=== PATIENT | female | born 2000 | race Caucasian/White ===

== ENCOUNTER → 2018-08-14 15:45 | Outpatient (CLI) | payer OTHER, SELFPAY ==
[2018-08-14 16:20] LABS: Absolute Lymphocyte Count 1.54 X10^3/ul (0.83-4.51); Absolute Neutrophil Count 5.9 X10^3/uL (2.0-7.7); Basophil# 0.07 X10^3/uL; Basophil% 0.8 % (0-1); Eosinophil# 0.11 X10^3/uL; Eosinophils% 1.3 % (0-5); Hematocrit 42.3 % (37-47); Hemoglobin 13.9 g/dl (12.0-15.0); Lymphocyte # 1.54 X10^3/ul (4.0); Lymphocyte % 18.4 % (19-41); Mean Corp Hgb Conc 32.9 g/gl (32-36); Mean Corpuscular Hgb 29.3 pg (27.0-32.0); Mean Corpuscular Volume 89.2 fL (81-99); Mean Platelet Vol. 9.5 fl (6.2-12.0); Monocyte# 0.69 X10^3/uL; Monocyte% 8.2 % (0-10); Neutrophil # 5.93 X10^3/uL (2.7-7.7); Neutrophil % 70.9 % (47-70); POSITIVE COUNT NO; POSITIVE DIFFERENTIAL NO; POSITIVE MORPHOLOGY NO; Platelet Count 351 K/mm3 (150-450); RBC Distribution Width CV 13.5 % (11.6-14.6); RBC Distribution Width SD 44.3 fl (35.1-43.9); Red Blood Count 4.74 M/mm3 (4.2-5.4); White Blood Count 8.4 K/mm3 (4.4-11.0)
[2018-08-14 16:56] LABS: ALB/GLOB Ratio 1.2 RATIO (0.9-2.4); AST(SGOT) 11 U/L (15-37); Alanine Aminotransfer ALT/SGPT 19 U/L (13-56); Alkaline Phosphatase 90 U/L (45-117); Anion Gap 7 (5-15); BUN 7 mg/dL (7-18); Calcium,Total 8.7 mg/dL (8.5-10.1); Chloride 107 mmol/L (98-107); Cholesterol 115 mg/dL (200); Creatinine, Serum 0.78 mg/dL (0.55-1.02); EST Glomerular Filtration Rate 100 mL/min (>60); Est Glom Filt Rate - Afr Amer 121 mL/min (>60); Globulin 3.4 g/dL (2.2-4.2); Glucose 86 mg/dL (74-106); High Density Lipoprotein 52 mg/dL; Potassium 3.6 mmol/L (3.5-5.1); Protein, Total 7.4 g/dL (6.4-8.2); Sodium Level 141 mmol/L (136-145); Triglycerides 100 mg/dL; Very Low Density Lipoprotein 20 mg/dL (5-40)
== END ==
PROVIDERS: Family Provider Family Medicine; PCP Family Medicine; Referring Provider Family Medicine; Visit Provider Family Medicine
DX: Z00.00 Encounter for general adult medical examination without abnormal findings (principal); K51.90 Ulcerative colitis, unspecified, without complications; Z79.899 Other long term (current) drug therapy
CPT/HCPCS: 36415; 80053; 80061; 85025

== ENCOUNTER 2018-12-14 14:08 | Emergency (ER) | payer OTHER, SELFPAY ==
[2018-12-14 14:08] VITALS: BP 124/69; PULSE 95; RESP 16; TEMP 36.5; O2SAT 100; BMI 24.5
--- NOTE | 2018-12-14 14:45 | ED.VISSUMM ---
- ER Visit Summary Date of Service: 12/14/18 Chief Complaint: Abdominal pain History of Present Illness: The patient is a 18 F presenting with abdominal pain. Patient states this has been intermittent for the past week. She states currently the pain is mild. She has had bloody diarrhea. She has a history of ulcerative colitis. She denies lightheadedness or syncope. She states she missed a few doses of her medication a few weeks ago and is not sure if this caused her ulcerative colitis to flare. She denies possibility of . Denies other complaints. Physical Examination: Vitals are stable. Patient is afebrile. Alert no acute distress. HEENT exam is unremarkable. Neck is supple. Lungs are clear and equal bilaterally. Heart is regular rate and rhythm. Abdomen is soft nontender nondistended. No guarding or rebound Extremities are unremarkable. Skin is warm and dry. No focal neurologic deficit. Remainder of exam is unremarkable. Emergency Department Course and Treatment: Patient given morphine, Zofran IV. CBC, chemistries unremarkable. hCG negative. Orthostatics negative. On reevaluation, patient is resting comfortably. Her abdominal pain has resolved. Her abdomen exam continues to be soft and nontender with no rebound or guarding. She states that she was recently discharged from the practice of her GI physician in [place] due to an unpaid bill. She states she has been treated in the past with steroids which have helped her. She is given prednisone and a prescription for prednisone. She is advised to follow-up with Dr. Armstrong. Advised to follow up with her primary care physician. Advised return to ED if worsening complaints. Disposition: Discharge home Impression: Abdominal pain, ulcerative colitis This note was generated with [employer] dictation software. It may contain incorrect words, spelling, and punctuation that were not noted in review of the chart prior to signing ED Disposition - Plan for ED Patient: Instructions: ED Colitis Ulcerative Prescriptions: Prednisone [Deltasone] 40 mg PO DAILY #10 tablet Referrals: Kael Chase MD [Primary Care Provider] - Gold Armstrong MD [NON-STAFF] -
[2018-12-14 14:57] VITALS: BP 120/68; BP 125/79; BP 127/66; PULSE 68; PULSE 74; PULSE 83; PULSE 98; RESP 18; TEMP 36.5; O2SAT 99
[2018-12-14] MEDS: 0.9% Normal Saline 1,000 ML 1000 ML IV (15:03)
[2018-12-14] MEDS: Ondansetron 4 MG/2 ML Vial IV (15:03)
[2018-12-14] MEDS: Morphine 4 MG/ML Syringe IV (15:04)
[2018-12-14 15:18] LABS: Absolute Lymphocyte Count 1.61 X10^3/ul (0.83-4.51); Absolute Neutrophil Count 5.4 X10^3/uL (2.0-7.7); Basophil# 0.06 X10^3/uL; Basophil% 0.7 % (0-1); Eosinophils% 9.4 % (0-5); Hematocrit 39.4 % (37-47); Hemoglobin 13.2 g/dl (12.0-15.0); Lymphocyte # 1.61 X10^3/ul (4.0); Mean Corp Hgb Conc 33.5 g/gl (32-36); Mean Corpuscular Hgb 29.4 pg (27.0-32.0); Mean Corpuscular Volume 87.8 fL (81-99); Mean Platelet Vol. 9.1 fl (6.2-12.0); Monocyte# 0.57 X10^3/uL; Monocyte% 6.7 % (0-10); Neutrophil # 5.39 X10^3/uL (2.7-7.7); Neutrophil % 63.7 % (47-70); Platelet Count 411 K/mm3 (150-450); RBC Distribution Width CV 13.4 % (11.6-14.6); RBC Distribution Width SD 42.7 fl (35.1-43.9); Red Blood Count 4.49 M/mm3 (4.2-5.4); White Blood Count 8.5 K/mm3 (4.4-11.0)
[2018-12-14 15:20] LABS: POSITIVE COUNT NO; POSITIVE DIFFERENTIAL NO; POSITIVE MORPHOLOGY NO
[2018-12-14 15:30] LABS: Anion Gap 8 (5-15); BUN 9 mg/dL (7-18); BUN/Creat Ratio 11.2 RATIO (10-20); Calcium,Total 8.6 mg/dL (8.5-10.1); Chloride 106 mmol/L (98-107); EST Glomerular Filtration Rate 96 mL/min (>60); Est Glom Filt Rate - Afr Amer 116 mL/min (>60); Estimated Creatinine Clearance 84.65 ml/min; Glucose 92 mg/dL (74-106); Potassium 3.9 mmol/L (3.5-5.1); Sodium Level 142 mmol/L (136-145)
[2018-12-14 15:38] LABS: Internal QC Validated? YES +Cl - CLEAR BKGD; Pregnancy, Serum, hCG Quali. NEGATIVE Negative
--- NOTE | 2018-12-14 16:15 | ED.DEP ---
ED Disposition - Plan for ED Patient: Instructions: ED Colitis Ulcerative Prescriptions: Prednisone [Deltasone] 40 mg PO DAILY #10 tablet Referrals: Kael Chase MD [Primary Care Provider] - Gold Armstrong MD [NON-STAFF] -
[2018-12-14 16:39] VITALS: BP 114/69; PULSE 70; RESP 17; RESP 18; O2SAT 98
[2018-12-14] MEDS: predniSONE 20 MG Tablet 60 MG PO (16:41)
== END 2018-12-14 16:42 | disposition home or self-care (01) ==
PROVIDERS: Emergency Provider Emergency Medicine; Family Provider Family Medicine; PCP Family Medicine
DX: K51.90 Ulcerative colitis, unspecified, without complications (principal); Z79.899 Other long term (current) drug therapy
CPT/HCPCS: 80048; 84703; 85025; 96361; 96374; 96375; 99284; J7030; A4216; J2405

== ENCOUNTER 2019-03-05 19:35 | Emergency (ER) | payer OTHER, SELFPAY ==
[2019-03-05 19:37] VITALS: BP 135/73; PULSE 145; RESP 18; TEMP 37.9; O2SAT 100; BMI 22.6
[2019-03-05 19:50] VITALS: TEMP 37.9
--- NOTE | 2019-03-05 21:14 | ED.DCSUM_ITS ---
- ER Visit Summary Date of Service: 03/05/19 Chief Complaint: Abdominal pain History of Present Illness: The patient is a 19 F presenting with abdominal pain. She states this has been ongoing for the past 2 months. She believes she is having an ulcerative colitis flare. She recently got a new GI physician in [place] and has an upcoming appointment. She complains of diffuse abdominal cramping, nausea, vomiting. She has a blood in her stool and diarrhea which is chronic. She denies other complaints. Physical Examination: Vitals are stable. Temperature 100.3. Alert no acute distress. HEENT exam is unremarkable. Neck is supple. Lungs are clear and equal bilaterally. Heart is regular and tachycardic Abdomen is soft mild diffuse tenderness no rebound or guarding Extremities are unremarkable. Skin is warm and dry. Remainder of exam is unremarkable. Emergency Department Course and Treatment: Patient given IV fluids, morphine, Zofran. CBC showed white count 14.7, hemoglobin 11.6, platelets 648. Chemistries unremarkable. hCG negative. On reevaluation patient is now having more pain in the right lower quadrant. CT abdomen pelvis is ordered and is pending at this time. This will be checked out to the nighttime physician. Repeat heart rate 113, temperature 99.2. Disposition: Pending CT results Impression: Abdominal pain, history of ulcerative colitis This note was generated with [employer] dictation software. It may contain incorrect words, spelling, and punctuation that were not noted in review of the chart prior to signing ED Disposition - Plan for ED Patient: Instructions: ABDOMINAL PAIN, Unknown Cause, (Female) Prescriptions: Dicyclomine HCl [Bentyl] 20 mg PO TIDAC #20 cap Prescription Printed Ondansetron [Zofran Odt] 4 mg PO Q8H PRN PRN #10 tab PRN Reason: Nausea Prescription Printed Referrals: Kael Chase MD [Primary Care Provider] -
[2019-03-05] MEDS: 0.9% Normal Saline 1,000 ML 1000 ML IV ×2 (21:16→22:13)
[2019-03-05] MEDS: Ondansetron 4 MG/2 ML Vial IV (21:17)
[2019-03-05] MEDS: Morphine 4 MG/ML Syringe IV (21:18)
[2019-03-05 21:19] VITALS: BP 123/79; PULSE 115; RESP 16; TEMP 37.3; O2SAT 99
[2019-03-05 21:35] LABS: Hematocrit 36.3 % (37-47); Hemoglobin 11.6 g/dL (12.0-15.0); Mean Corpuscular Hgb 28.6 pg (27.0-32.0); Mean Corpuscular Volume 89.6 fL (81-99); Mean Platelet Vol. 9.4 fl (6.2-12.0); POSITIVE MORPHOLOGY YES; Platelet Count 648 K/mm3 (150-450); RBC Distribution Width CV 14.5 % (11.6-14.6); RBC Distribution Width SD 47.4 fl (35.1-43.9); Red Blood Count 4.05 M/mm3 (4.2-5.4); White Blood Count 14.7 K/mm3 (4.4-11.0)
[2019-03-05 21:50] LABS: Anion Gap 8 (5-15); BUN 5 mg/dL (7-18); BUN/Creat Ratio 6.4 RATIO (10-20); Calcium,Total 8.7 mg/dL (8.5-10.1); Chloride 101 mmol/L (98-107); Creatinine, Serum 0.78 mg/dL (0.55-1.02); EST Glomerular Filtration Rate 98 mL/min (>60); Est Glom Filt Rate - Afr Amer 119 mL/min (>60); Estimated Creatinine Clearance 90.24 ml/min; Glucose 81 mg/dL (74-106); Potassium 3.7 mmol/L (3.5-5.1); Sodium Level 134 mmol/L (136-145)
[2019-03-05 22:00] VITALS: BP 112/78; PULSE 110; RESP 16; TEMP 37.7; O2SAT 100
[2019-03-05 22:05] LABS: Eosinophil 1 % (0-5); Lymphocyte 8 % (19-41); Monocyte 2 % (0-10); Neutrophil-Band 18 % (0-5); Neutrophil-Segmented 71 % (47-70); Total Cells Counted 100 (MANUAL DIFF)
[2019-03-05 22:06] LABS: Scan Smear per Review Criteria MANUAL DIFF
[2019-03-05 22:08] LABS: Differential Indicated MANUAL DIFF
[2019-03-05 22:09] LABS: Absolute Lymphocyte Count 1.18 X10^3/uL (0.83-4.51); Absolute Neutrophil Count 13.1 X10^3/uL (2.0-7.7)
[2019-03-05 22:10] LABS: Anisocytosis RARE; Platelet Estimate MKD INC (ADEQ)
[2019-03-05 22:26] LABS: Internal QC Validated? YES +Cl - CLEAR BKGD; Pregnancy, Serum, hCG Quali. NEGATIVE Negative
--- NOTE | 2019-03-05 22:48 | ED.RN ---
DR. PENA MADE AWARE PT BG WAS 56, DR. PENA IS ORDERING D50, WILL MEDICATE PT AND RE CHECK SUGAR IN 15MIN.
[2019-03-05 23:00] VITALS: BP 120/76; PULSE 113; RESP 16; TEMP 37.3; O2SAT 100
[2019-03-06] VITALS: TEMP 37.3
--- NOTE | 2019-03-06 00:40 | CT_ITS ---
HISTORY: RLQ PAIN,NAUSEA AND DIARRHEA WITH BLOOD IN STOOLS X 2 MONTHS,ELEVATED WBC,PREG TEST WAS NEGATIVE HX:COLITIS ADDITIONAL HISTORY: None provided. TECHNIQUE: CT images were obtained of the abdomen and pelvis with 100 ml of Isovue 300 IV contrast. Enteric contrast was given. A radiation dose optimization technique was used for this scan. Number of images including paperwork: 361 COMPARISON: None FINDINGS: LOWER THORAX: No consolidation or pleural effusion. LIVER: No concerning focal lesion. GALLBLADDER: No radiopaque calculi. BILE DUCTS: No significant biliary dilatation. SPLEEN: Unremarkable. PANCREAS: Unremarkable. ADRENAL GLANDS: Unremarkable. KIDNEYS/URETERS: Unremarkable. BOWEL: No bowel obstruction. Moderate diffuse wall thickening of the colon with mild surrounding stranding and small pericolonic nodes. APPENDIX: Normal. FREE FLUID: Small amount of pelvic free fluid. FREE AIR: None. LYMPH NODES: No pathologic appearing adenopathy. PERITONEUM, RETROPERITONEUM AND MESENTERY: Otherwise unremarkable. VASCULATURE: Unremarkable as imaged. PELVIS: Unremarkable bladder. ABDOMINAL WALL: Unremarkable. OSSEOUS AND SOFT TISSUE STRUCTURES: No acute skeletal findings. CT/Abdomen/Pelvis WITH Contrast IMPRESSION: Pancolitis, most likely inflammatory in nature such as ulcerative colitis. Infectious etiology is in the differential diagnosis. Individualized dose optimization techniques were used for this CT. at 0305 Reported and signed by: Mireya Stout MD Electronically Signed: Mireya Stout MD at 3:05 EDT Tel , Service support ,
--- NOTE | 2019-03-06 00:40 | ED.DEP ---
ED Disposition - Plan for ED Patient: Instructions: ABDOMINAL PAIN, Unknown Cause, (Female) Prescriptions: Dicyclomine HCl [Bentyl] 20 mg PO TIDAC #20 capsule Ondansetron [Zofran Odt] 4 mg PO Q8H PRN PRN #10 tablet PRN Reason: Nausea Referrals: Kael Chase MD [Primary Care Provider] -
[2019-03-06] MEDS: Morphine 4 MG/ML Syringe IV (00:56)
[2019-03-06 01:00] VITALS: BP 110/72; PULSE 113; RESP 16; TEMP 36.6; O2SAT 98
[2019-03-06 02:00] VITALS: TEMP 36.6
[2019-03-06 03:11] VITALS: BP 150/73; PULSE 125; RESP 16; TEMP 36.8; O2SAT 100
--- NOTE | 2019-03-06 03:14 | DCINST.ED_ITS ---
ED Disposition - Plan for ED Patient: Disposition: Home or Assisted Living Instructions: Ulcerative Colitis Prescriptions: Dicyclomine HCl [Bentyl] 20 mg PO TIDAC #20 cap Prescription Printed Ciprofloxacin [Cipro] 500 mg PO BID #14 tab Prescription Printed metroNIDAZOLE [Flagyl] 500 mg PO Q8H #21 tab Prescription Printed Meloxicam 15 mg PO DAILY #14 tab Prescription Printed Prednisone 10 mg PO DAILY #63 tab Prescription Printed Ondansetron [Zofran Odt] 4 mg PO Q8H PRN PRN #10 tab PRN Reason: Nausea Prescription Printed Referrals: Kael Chase MD [Primary Care Provider] - Additional Instructions: also follow with your hand braille transcriber
[2019-03-06] MEDS: Ciprofloxacin 500 MG Tablet PO (03:21)
[2019-03-06] MEDS: predniSONE 20 MG Tablet 60 MG PO (03:21)
[2019-03-06] MEDS: metroNIDAZOLE 500 MG Tablet PO (03:21)
[2019-03-06 03:31] VITALS: BP 150/73; PULSE 125; RESP 18; O2SAT 100
[2019-03-06 13:56] LABS: Pathologist Review Reviewed
== END 2019-03-06 03:32 | disposition home or self-care (01) ==
PROVIDERS: Emergency Medicine; Emergency Provider Emergency Medicine; Family Provider Family Medicine; PCP Family Medicine
DX: K51.90 Ulcerative colitis, unspecified, without complications (principal); R00.0 Tachycardia, unspecified; Z79.899 Other long term (current) drug therapy
CPT/HCPCS: 74177; 80048; 84703; 85025; 96361; 96374; 96375; 96376; 99283; J7030; Q9967; A4216; J2405

== ENCOUNTER 2019-03-22 15:10 | Emergency (ER) | payer OTHER, SELFPAY ==
[2019-03-22 15:10] VITALS: BP 129/88; PULSE 148; RESP 18; TEMP 36.6; O2SAT 99; BMI 24.5
--- NOTE | 2019-03-22 15:25 | ED.VISSUMM ---
- ER Visit Summary Date of Service: 03/22/19 Chief Complaint: Abdominal pain with nausea, vomiting diarrhea History of Present Illness: The patient is a 19 F history of ulcerative colitis. She says is 10 years old. She is an upcoming appointment with a GI physician in [facility] tomorrow. She states she has had a flare for the last 2 months. She was recently seen in the emergency department 2 to 3 weeks ago had a CAT scan at that time which showed pancolitis. She was placed on Mobic for pain and prednisone. Patient states she was doing well currently she is out of the medications and is having recurrent symptoms. She denies any gross melena or hematemesis. No fever. She denies any prior abdominal surgeries. Physical Examination: No acute distress she is tachycardic otherwise vital signs are stable afebrile. HEENT exam unremarkable. Neck nontender. Lungs clear to auscultation bilaterally. Heart tachycardic no murmur. Abdomen is soft. Mildly diffusely tender but no peritoneal signs. No hernia or masses. No signs of obstruction. Positive bowel sounds. No signs of obstruction. Patient moving all 4 extremities. Skin is unremarkable other than being pale. Neurologically she is awake and alert. Test Results: CBC shows a white count of 14.5. Hemoglobin of 11 which was her same as her last CBC. Elevated platelet count of 664,000 again seen previously. Chemistries are unremarkable. Normal BUN and creatinine. Emergency Department Course and Treatment: Patient treated with IV fluids, morphine, Zofran and Toradol. Screening labs are being obtained. At this time I do not think she needs any imaging due to having a recent CAT scan. Repeat exam at 1737 patient is doing well. Abdomen is benign. She states she feels a lot better. She is currently being discharged home. She has an appointment to see a college of education dean tomorrow. Treatment Plan: Prednisone 20 mg a day for 10 days. Bentyl for abdominal cramping. Zofran for nausea. Disposition: Discharge Impression: Acute exacerbation of ulcerative colitis Nausea, vomiting and diarrhea This note was generated with [employer] dictation software. It may contain incorrect words, spelling, and punctuation that were not noted in review of the chart prior to signing ED Disposition - Plan for ED Patient: Referrals: Kael Chase MD [Primary Care Provider] -
[2019-03-22] MEDS: 0.9% Normal Saline 1,000 ML 1000 ML IV (15:43)
[2019-03-22] MEDS: Morphine 4 MG/ML Syringe IV (15:43)
[2019-03-22] MEDS: Ketorolac 30 MG/ML Syringe IV (15:44)
[2019-03-22] MEDS: Ondansetron 4 MG/2 ML Vial IV (15:44)
[2019-03-22 15:47] VITALS: PULSE 120; RESP 18; O2SAT 96
[2019-03-22 15:48] LABS: Absolute Lymphocyte Count 1.69 X10^3/uL (0.83-4.51); Absolute Neutrophil Count 9.3 X10^3/uL (2.0-7.7); Basophil# 0.07 X10^3/uL; Basophil% 0.5 % (0-1); Eosinophil# 0.46 X10^3/uL; Eosinophils% 3.2 % (0-5); Hematocrit 35.1 % (37-47); Hemoglobin 11.1 g/dL (12.0-15.0); Lymphocyte # 1.69 X10^3/ul (4.0); Lymphocyte % 11.6 % (19-41); Mean Corp Hgb Conc 31.6 g/dL (32-36); Mean Corpuscular Hgb 27.3 pg (27.0-32.0); Mean Corpuscular Volume 86.5 fL (81-99); Mean Platelet Vol. 8.6 fl (6.2-12.0); Monocyte# 2.57 X10^3/uL; Monocyte% 17.7 % (0-10); NRBC Flagged by Analyzer 0 % (0-5); Neutrophil # 9.33 X10^3/uL (2.7-7.7); Neutrophil % 64.3 % (47-70); POSITIVE DIFFERENTIAL YES; POSITIVE MORPHOLOGY YES; Platelet Count 664 K/mm3 (150-450); RBC Distribution Width CV 15.1 % (11.6-14.6); RBC Distribution Width SD 48.3 fl (35.1-43.9); Red Blood Count 4.06 M/mm3 (4.2-5.4); White Blood Count 14.5 K/mm3 (4.4-11.0)
[2019-03-22 15:50] VITALS: BP 129/88; PULSE 120; RESP 18; TEMP 36.6; O2SAT 96
[2019-03-22 16:02] LABS: Anion Gap 6 (5-15); BUN 7 mg/dL (7-18); BUN/Creat Ratio 9.2 RATIO (10-20); Calcium,Total 8.5 mg/dL (8.5-10.1); Chloride 104 mmol/L (98-107); Creatinine, Serum 0.76 mg/dL (0.55-1.02); EST Glomerular Filtration Rate 102 mL/min (>60); Est Glom Filt Rate - Afr Amer 123 mL/min (>60); Estimated Creatinine Clearance 88.36 ml/min; Glucose 94 mg/dL (74-106); Potassium 3.6 mmol/L (3.5-5.1); Sodium Level 138 mmol/L (136-145)
[2019-03-22 16:04] LABS: Differential Indicated SCAN CRITERIA MET
[2019-03-22 16:31] LABS: Differential Comment SCANNED
[2019-03-22 16:51] VITALS: BP 118/72; RESP 18; O2SAT 98
[2019-03-22 17:04] VITALS: PULSE 105
--- NOTE | 2019-03-22 17:41 | ED.DEP ---
ED Disposition - Plan for ED Patient: Disposition: Home or Assisted Living Instructions: Ulcerative Colitis Prescriptions: Dicyclomine HCl [Bentyl] 20 mg PO TIDAC #20 cap Prescription Printed Prednisone [Deltasone] 20 mg PO DAILY 10 Days #10 tab Prescription Printed Ondansetron [Zofran Odt] 4 mg PO Q8H PRN PRN #20 tab PRN Reason: Nausea Prescription Printed Referrals: Kael Chase MD [Primary Care Provider] - As Needed Additional Instructions: Bentyl for abdominal cramping. Zofran for nausea. Prednisone daily for your ulcerative colitis. Plenty of fluids and rest. Follow-up with your GI doctor tomorrow.
[2019-03-22 17:54] VITALS: BP 110/69; O2SAT 98
[2019-03-23 12:28] LABS: Pathologist Review Reviewed
== END 2019-03-22 17:56 | disposition home or self-care (01) ==
PROVIDERS: Emergency Provider Emergency Medicine; Family Provider Family Medicine; PCP Family Medicine
DX: K51.90 Ulcerative colitis, unspecified, without complications (principal); R00.0 Tachycardia, unspecified
CPT/HCPCS: 80048; 85025; 96361; 96374; 96375; 99283; J7030; J2405

== ENCOUNTER → 2019-03-23 12:47 | Outpatient (CLI) | payer OTHER, SELFPAY ==
[2019-03-22 15:10] VITALS: BMI 24.5
[2019-03-23 13:24] LABS: Erythrocyte Sedimentation Rate 83 mm/hr (0-20)
[2019-03-23 13:25] LABS: Hematocrit 35.3 % (37-47); Hemoglobin 11.2 g/dL (12.0-15.0); Mean Corp Hgb Conc 31.7 g/dL (32-36); Mean Corpuscular Hgb 27.5 pg (27.0-32.0); Mean Corpuscular Volume 86.7 fL (81-99); Mean Platelet Vol. 8.8 fl (6.2-12.0); POSITIVE DIFFERENTIAL YES; POSITIVE MORPHOLOGY YES; Platelet Count 707 K/mm3 (150-450); RBC Distribution Width CV 15.1 % (11.6-14.6); RBC Distribution Width SD 47.8 fl (35.1-43.9); Red Blood Count 4.07 M/mm3 (4.2-5.4); White Blood Count 15.9 K/mm3 (4.4-11.0)
[2019-03-23 13:30] LABS: Differential Indicated MANUAL DIFF
[2019-03-23 13:49] LABS: ALB/GLOB Ratio 0.5 RATIO (0.9-2.4); AST(SGOT) 9 U/L (15-37); Alanine Aminotransfer ALT/SGPT 9 U/L (13-56); Albumin, Serum 2.4 g/dL (3.2-5.0); Alkaline Phosphatase 70 U/L (45-117); Anion Gap 8 (5-15); BUN 9 mg/dL (7-18); BUN/Creat Ratio 13.6 RATIO (10-20); Calcium,Total 8.4 mg/dL (8.5-10.1); Chloride 103 mmol/L (98-107); Creatinine, Serum 0.66 mg/dL (0.55-1.02); EST Glomerular Filtration Rate 119 mL/min (>60); Est Glom Filt Rate - Afr Amer 145 mL/min (>60); Globulin 4.5 g/dL (2.2-4.2); Glucose 100 mg/dL (74-106); Potassium 3.9 mmol/L (3.5-5.1); Protein, Total 6.9 g/dL (6.4-8.2); Sodium Level 138 mmol/L (136-145)
[2019-03-23 13:50] LABS: Eosinophil 3 % (0-5); Lymphocyte 6 % (19-41); Metamyelocyte 2 % (0-1); Monocyte 23 % (0-10); Neutrophil-Band 6 % (0-5); Neutrophil-Segmented 60 % (47-70); Platelet Estimate MKD INC (ADEQ); Red Cell Morphology NORM C+C NORMAL (NORM C&C); Total Cells Counted 100 (MANUAL DIFF)
[2019-03-23 13:51] LABS: Absolute Lymphocyte Count 0.95 X10^3/uL (0.83-4.51); Absolute Neutrophil Count 10.5 X10^3/uL (2.0-7.7); Lymphocyte # 0.95 X10^3/ul (4.0)
[2019-03-23 14:24] LABS: Hepatitis B Surface Antibody Reactive; Hepatitis B Surface Antigen Non-Reactive (Nonreactive)
[2019-03-24 04:07] LABS: Hepatitis B Core Ab Total Negative (Negative)
[2019-03-24 08:36] LABS: Hepatitis A AB, Total Negative (Negative)
[2019-03-25 11:32] LABS: Calprotectin, Stool 2586 ug/g (0-120)
[2019-03-25 13:41] LABS: Pathologist Review Reviewed
== END ==
PROVIDERS: Family Provider Family Medicine; PCP Family Medicine
DX: K51.90 Ulcerative colitis, unspecified, without complications (principal); K92.1 Melena; R10.9 Unspecified abdominal pain
CPT/HCPCS: 36415; 80053; 82274; 83993; 85025; 85652; 86140; 86704; 86706; 86708; 87340; 87493

== ENCOUNTER → 2019-03-28 10:15 | Outpatient (CLI) | payer OTHER, SELFPAY ==
[2019-03-22 15:10] VITALS: BMI 24.5
[2019-04-01 23:32] LABS: QNTFERON TB Mitogen Value > 10.00 IU/mL (.); QNTFERON TB Nil Value 0.03 IU/mL (.); QNTFERON TB1+ Ag Value 0.04 IU/mL (.); QNTFERON TB2+ Ag Value 0.02 IU/mL (.)
[2019-04-02 13:05] LABS: QNTIFERON TB Positive Criteria Negative (Negative)
== END ==
PROVIDERS: Family Provider Family Medicine; PCP Family Medicine
DX: K51.90 Ulcerative colitis, unspecified, without complications (principal); K92.1 Melena; R10.9 Unspecified abdominal pain
CPT/HCPCS: 36415; 86480

== ENCOUNTER → 2019-04-28 11:10 | Outpatient (CLI) | payer OTHER, SELFPAY ==
[2019-04-28 11:38] LABS: Absolute Lymphocyte Count 4.58 X10^3/uL (0.83-4.51); Absolute Neutrophil Count 18.3 X10^3/uL (2.0-7.7); Basophil# 0.21 X10^3/uL; Basophil% 0.8 % (0-1); Eosinophil# 0.17 X10^3/uL; Eosinophils% 0.6 % (0-5); Hematocrit 31.3 % (37-47); Hemoglobin 9.4 g/dL (12.0-15.0); Lymphocyte # 4.58 X10^3/ul (4.0); Lymphocyte % 17.4 % (19-41); Mean Corpuscular Hgb 25.3 pg (27.0-32.0); Mean Corpuscular Volume 84.1 fL (81-99); Monocyte# 1.93 X10^3/uL; Monocyte% 7.3 % (0-10); NRBC Flagged by Analyzer 0 % (0-5); Neutrophil % 69.5 % (47-70); POSITIVE COUNT YES; POSITIVE DIFFERENTIAL YES; RBC Distribution Width CV 18.9 % (11.6-14.6); RBC Distribution Width SD 55.7 fl (35.1-43.9); Red Blood Count 3.72 M/mm3 (4.2-5.4); White Blood Count 26.3 K/mm3 (4.4-11.0)
[2019-04-28 11:47] LABS: Differential Indicated SCAN CRITERIA MET; Platelet Count 848 K/mm3 (150-450)
[2019-04-28 12:02] LABS: Anisocytosis 1+; Differential Comment SCANNED; Hypochromasia 2+; Platelet Estimate MKD INC (ADEQ)
[2019-04-28 12:10] LABS: ALB/GLOB Ratio 0.8 RATIO (0.9-2.4); AST(SGOT) 20 U/L (15-37); Alanine Aminotransfer ALT/SGPT 25 U/L (13-56); Alkaline Phosphatase 85 U/L (45-117); Anion Gap 6 (5-15); BUN 5 mg/dL (7-18); BUN/Creat Ratio 8.1 RATIO (10-20); Calcium,Total 8.7 mg/dL (8.5-10.1); Chloride 104 mmol/L (98-107); Creatinine, Serum 0.62 mg/dL (0.55-1.02); EST Glomerular Filtration Rate 130 mL/min (>60); Est Glom Filt Rate - Afr Amer 157 mL/min (>60); Globulin 3.7 g/dL (2.2-4.2); Glucose 85 mg/dL (74-106); Potassium 3.4 mmol/L (3.5-5.1); Protein, Total 6.7 g/dL (6.4-8.2); Sodium Level 139 mmol/L (136-145)
[2019-04-29 16:01] LABS: Pathologist Review Reviewed
== END ==
PROVIDERS: Family Provider Family Medicine; PCP Family Medicine; Referring Provider Family Medicine; Visit Provider Family Medicine
DX: K51.90 Ulcerative colitis, unspecified, without complications (principal); R19.7 Diarrhea, unspecified; D72.829 Elevated white blood cell count, unspecified
CPT/HCPCS: 36415; 80053; 85025

== ENCOUNTER 2019-04-28 12:29 | Emergency (ER) | payer OTHER, SELFPAY ==
[2019-04-28 12:30] VITALS: BP 140/94; PULSE 139; RESP 18; TEMP 36.8; O2SAT 98; BMI 22.6
--- NOTE | 2019-04-28 13:04 | CT_ITS ---
STUDY: CT ABDOMEN AND PELVIS WITH CONTRAST REASON FOR EXAM: Female, 19 years old. Abdominal pain. Leukocytosis. Recent admission for colitis. RADIATION DOSAGE (If Supplied By Facility): CTDIvol = ( 7.57 ) mGy, DLP = ( 403.53 ) mGycm TECHNIQUE: Transaxial images were obtained from the dome of the diaphragm to the symphysis pubis with oral contrast. IV/Oral Isovue 300 100 was administered. Sagittal and coronal images were reconstructed. Individualized dose optimization techniques were used for this CT. COMPARISON: Comparison is made with prior study dated March 13, 2019. FINDINGS: The visualized lung bases are unremarkable. The visualized portions of the heart are within normal limits. Normal liver. Normal gallbladder and extrahepatic biliary system. Normal spleen. Normal pancreas. Normal bilateral adrenal glands. Normal right kidney. Normal left kidney. There is a small hiatal hernia. Normal small intestine. There is a mild degree of diffuse thickening of the wall of the colon. There is evidence of decreased haustral markings of the colon. Findings are in keeping with ulcerative colitis. Mild residual increased markings in the surrounding peritoneal fat. This has improved as compared to prior study. The appendix is visualized and appears normal. Normal abdominal aorta. Normal inferior vena cava. Normal retroperitoneum. Normal urinary bladder. Normal abdominal wall. Normal osseous structures. CT/Abdomen/Pelvis WITH Contrast IMPRESSION: Findings incomplete with a pancolitis as described most likely representing ulcerative colitis. Electronically Signed: Danis Garcia, at 15:25 EDT , Service support ,
[2019-04-28] MEDS: 0.9% Normal Saline 1,000 ML 1000 ML IV (13:30)
[2019-04-28 13:32] LABS: Mucous, Urine 0 SEEN /hpf (<or=2+); White Blood Cells 0 SEEN /hpf (0-5)
[2019-04-28 13:36] LABS: Absolute Lymphocyte Count 2.41 X10^3/uL (0.83-4.51); Basophil# 0.11 X10^3/uL; Basophil% 0.4 % (0-1); Color, Urine Yellow (Yellow); Eosinophil# 0.09 X10^3/uL; Eosinophils% 0.3 % (0-5); Glucose, Dipstick Normal (Normal); Hematocrit 28.6 % (37-47); Hemoglobin 8.7 g/dL (12.0-15.0); Ketone-Dipstick Negative (Negative); Leukocyte Esterase-Dipstick Negative /ul (Negative); Lymphocyte # 2.41 X10^3/ul (4.0); Lymphocyte % 8.5 % (19-41); Mean Corp Hgb Conc 30.4 g/dL (32-36); Mean Corpuscular Volume 82.2 fL (81-99); Mean Platelet Vol. 8.1 fl (6.2-12.0); Monocyte# 1.69 X10^3/uL; NRBC Flagged by Analyzer 0 % (0-5); Neutrophil # 22.99 X10^3/uL (2.7-7.7); Neutrophil % 81.4 % (47-70); Nitrite-Dipstick Negative (Negative); Occult Blood-Urine 25 /ul (Negative); POSITIVE COUNT YES; POSITIVE DIFFERENTIAL YES; Protein-Dipstick 15 mg/dl (Negative); Red Blood Count 3.48 M/mm3 (4.2-5.4); Specific Gravity, Urine 1.015 (1.002-1.030); Urine Bilirubin Dipstick Negative (Negative); Urine Clarity Clear (Clear); Urine Urobilinogen Normal (Normal); Urine pH 6.5 (5.0 - 8.0); White Blood Count 28.2 K/mm3 (4.4-11.0)
[2019-04-28 13:37] LABS: Internal QC Validated? YES +Cl - CLEAR BKGD; Pregnancy, Urine Negative Negative
[2019-04-28 13:41] LABS: Platelet Count 755 K/mm3 (150-450)
[2019-04-28 13:42] LABS: Bacteria RARE /hpf (None Seen); Red Blood Cells-Urine 0-5 SEEN /hpf (0-5); Squamous Epithelial Cells - UA 0-5 SEEN /hpf (5-10)
[2019-04-28 13:49] LABS: ALB/GLOB Ratio 0.8 RATIO (0.9-2.4); AST(SGOT) 18 U/L (15-37); Alanine Aminotransfer ALT/SGPT 26 U/L (13-56); Albumin, Serum 2.9 g/dL (3.2-5.0); Alkaline Phosphatase 85 U/L (45-117); Anion Gap 5 (5-15); BUN 8 mg/dL (7-18); BUN/Creat Ratio 11.1 RATIO (10-20); Calcium,Total 8.3 mg/dL (8.5-10.1); Chloride 104 mmol/L (98-107); Creatinine, Serum 0.72 mg/dL (0.55-1.02); EST Glomerular Filtration Rate 109 mL/min (>60); Est Glom Filt Rate - Afr Amer 132 mL/min (>60); Estimated Creatinine Clearance 93.27 ml/min; Globulin 3.8 g/dL (2.2-4.2); Glucose 93 mg/dL (74-106); Potassium 3.5 mmol/L (3.5-5.1); Protein, Total 6.7 g/dL (6.4-8.2); Sodium Level 140 mmol/L (136-145)
[2019-04-28 13:57] LABS: Differential Indicated SCAN CRITERIA MET
--- NOTE | 2019-04-28 13:58 | ED.RN ---
PLT 755 WBC 28.[address] LAB[address] DR BURGESS AWARE
[2019-04-28 13:59] LABS: Platelet Estimate MKD INC (ADEQ)
[2019-04-28 14:00] LABS: Anisocytosis 1+; Hypochromasia 2+
[2019-04-28 14:02] LABS: Differential Comment SCANNED
--- NOTE | 2019-04-28 14:14 | ED.VIS.GEN ---
History of Present Illness Chief Complaint: Abn Labs Informant: Patient Narrative: Patient is a 19-year-old female with history of ulcerative colitis presenting for abnormal lab work. Patient had blood work performed her PCP which showed a significant leukocytosis. Patient was then told to come to the emergency room. Patient was following up from a recent hospitalization at [facility] for an ulcerative colitis flare. Patient states at that time she was having significant abdominal pain, blood in her stool as well as nausea. Patient is currently on prednisone which she says she is been on for the past 2 to 3 months. In addition she is on Cipro and Flagyl. She states her symptoms have been improving he was discharged in the hospital last week. Patient is having a small amount of blood in her stool still but states it is clearing up. In addition her diarrhea has improved. She states she still feels a little shaky but denies any other complaints. She denies any fever or chills. Past Medical History - Allergies and Home Meds Allergies/Adverse Reactions: Allergies No Known Allergies Allergy (Verified 04/28/19 12:32) Primary Care Physician: Naty Glover NP-C [Registered Nurse] - Kael Chase MD [Primary Care Provider] - Smoking Status: Current every day smoker Review of Systems All systems negative except as indicated General: Reports: - - dizziness Gastrointestinal: Reports: Abdominal pain - diffuse, improving, Diarrhea - improving Physical Exam Vital Signs/Narrative: Vital Signs Temp Pulse Resp BP Pulse Ox 04/28/19 12:30 98.2 F 139 H 18 140/94 H 98 Inital Vital Signs reviewed: Yes - Initially patient is quite tachycardic. This resolves spontaneously General: Well nourished, Well developed, No Acute Distress Head: Normocephalic, Atraumatic Eyes: Perrl, EOMI ENT: Moist mucous membranes, No rhinorrhea Neck: Supple, Nontender Cardiovascular: Regular rate, Regular rhythm, No murmurs Respiratory: No distress, CTA bilaterally, Chest nontender Abdomen: Soft, Nontender, Nondistended, Normal bowel sounds Back: Nontender, Normal Inspection Extremities: Nontender, No edema Skin: Normal color, No rash Neurological: Alert, Oriented x3, Cranial nerves II-XII grossly intact, Normal Strength, Normal Sensation Psychological: Normal affect, Normal Mood Diagnostic/Tx/Re-eval Laboratory Results - last 24 hr 04/28/19 04/28/19 04/28/19 13:20 13:20 13:20 WBC 28.2 H RBC 3.48 L Hgb 8.7 L Hct 28.6 L MCV 82.2 MCH 25.0 L MCHC 30.4 L RDW Std Deviation 56.0 H RDW Coeff of Waldo 19.0 H Plt Count 755 H* MPV 8.1 Immature Gran % (Auto) 3.400 H Neut % (Auto) 81.4 H Lymph % (Auto) 8.5 L Stone % (Auto) 6.0 Eos % (Auto) 0.3 Baso % (Auto) 0.4 Absolute Neuts (auto) 23.0 H Absolute Lymphs (auto) 2.41 Nucleated RBC % 0 Differential Comment SCANNED Diff Path Review May foll Platelet Estimate MKD INC Hypochromasia 2+ Anisocytosis 1+ Sodium 140 Potassium 3.5 Chloride 104 Carbon Dioxide 31.0 Anion Gap 5 BUN 8 Creatinine 0.72 Estim Creat Clear Calc 93.27 Est GFR (MDRD) Af Amer 132 Est GFR (MDRD) Non-Af 109 BUN/Creatinine Ratio 11.1 Glucose 93 Calcium 8.3 L Total Bilirubin 0.50 AST 18 ALT 26 Alkaline Phosphatase 85 Total Protein 6.7 Albumin 2.9 L Globulin 3.8 Albumin/Globulin Ratio 0.8 L Urine Color Urine Clarity Urine pH Ur Specific Zenda Urine Protein Urine Glucose (UA) Urine Ketones Urine Occult Blood Urine Nitrite Urine Bilirubin Urine Urobilinogen Ur Leukocyte Esterase Urine RBC Urine WBC Ur Squamous Epith Cells Urine Bacteria Urine Mucus Urine Test Negative 04/28/19 13:20 WBC RBC Hgb Hct MCV MCH MCHC RDW Std Deviation RDW Coeff of Waldo Plt Count MPV Immature Gran % (Auto) Neut % (Auto) Lymph % (Auto) Stone % (Auto) Eos % (Auto) Baso % (Auto) Absolute Neuts (auto) Absolute Lymphs (auto) Nucleated RBC % Differential Comment Diff Path Review Platelet Estimate Hypochromasia Anisocytosis Sodium Potassium Chloride Carbon Dioxide Anion Gap BUN Creatinine Estim Creat Clear Calc Est GFR (MDRD) Af Amer Est GFR (MDRD) Non-Af BUN/Creatinine Ratio Glucose Calcium Total Bilirubin AST ALT Alkaline Phosphatase Total Protein Albumin Globulin Albumin/Globulin Ratio Urine Color Yellow Urine Clarity Clear Urine pH 6.5 Ur Specific Zenda 1.015 Urine Protein 15 H Urine Glucose (UA) Normal Urine Ketones Negative Urine Occult Blood 25 H Urine Nitrite Negative Urine Bilirubin Negative Urine Urobilinogen Normal Ur Leukocyte Esterase Negative Diagnostic Data Abdomen/Pelvis CT 04/28/19 13:04 IMPRESSION: Findings incomplete with a pancolitis as described most likely representing ulcerative colitis. Electronically Signed: Danis Garcia, at 15:25 EDT , Service support , Diagnostic Data Abdomen/Pelvis CT 04/28/19 13:04 IMPRESSION: Findings incomplete with a pancolitis as described most likely representing ulcerative colitis. Electronically Signed: Danis Garcia, at 15:25 EDT , Service support , Urine RBC 0-5 SEEN Urine WBC 0 SEEN Ur Squamous Epith Cells 0-5 SEEN Urine Bacteria RARE Urine Mucus [address] abdomen pelvis with contrast Findings incomplete with a pancolitis as described most likely representing ulcerative colitis - Medical Decision Making She is evaluated for abnormal lab values. She did outpatient labs that showed that she evaded leukocyte and platelet count. In addition patient is anemic. She is relatively asymptomatic. She would not of come to the emergency room had she not been told to by her PCP. Repeat CT is obtained to look for any cause of infection which was grossly negative. It is possible the patient is just an marginalized from her chronic prednisone therapy. Urine cultures are added on. Discussed the case with her PCP, Dr. Kael Chase, who is agreeable with this plan. Patient will be referred to hematology for further evaluation of her laboratory abnormalities. She will also follow-up with Dr. Chase later this week. Patient is counseled on signs and symptoms requiring return to the emergency room. Patient verbalizes agreement and understand this plan. Patient discharged home in stable and improved condition. ED Disposition - Plan for ED Patient: Disposition: Home or Assisted Living Diagnosis: Leukocytosis, Thrombocytosis, Anemia Referrals: Kael Chase MD [Primary Care Provider] - Naty Glover NP-C [Registered Nurse] - Additional Instructions: The emergency room for having any worsening symptoms. Please follow-up with the informatics developer for your elevated white blood cell count and elevated platelet count. Follow-up with your primary care doctor within the next week for reevaluation. Continue taking all medications as prescribed.
[2019-04-28 16:41] VITALS: BP 108/74; PULSE 92; RESP 16; O2SAT 97
[2019-04-29 16:02] LABS: Pathologist Review Reviewed
== END 2019-04-28 16:42 | disposition home or self-care (01) ==
PROVIDERS: Emergency Provider Emergency Medicine; Family Provider Family Medicine; PCP Family Medicine
DX: D72.829 Elevated white blood cell count, unspecified (principal); D47.3 Essential (hemorrhagic) thrombocythemia; D64.9 Anemia, unspecified; K92.1 Melena; R00.0 Tachycardia, unspecified; F17.200 Nicotine dependence, unspecified, uncomplicated; Z79.52 Long term (current) use of systemic steroids; Z79.899 Other long term (current) drug therapy
CPT/HCPCS: 74177; 80053; 81001; 81025; 85025; 87040; 96360; 99282; J7030; Q9967

== ENCOUNTER → 2019-10-12 14:32 | Outpatient (CLI) | payer OTHER, SELFPAY ==
[2019-10-12 16:08] LABS: Absolute Lymphocyte Count 1.62 X10^3/uL (0.83-4.51); Basophil# 0.09 X10^3/uL; Eosinophil# 0.15 X10^3/uL; Eosinophils% 1.7 % (0-5); Hematocrit 37.4 % (37-47); Hemoglobin 11.6 g/dL (12.0-15.0); Lymphocyte # 1.62 X10^3/ul (4.0); Lymphocyte % 18.5 % (19-41); Mean Corpuscular Hgb 23.4 pg (27.0-32.0); Mean Corpuscular Volume 75.4 fL (81-99); Mean Platelet Vol. 9.5 fl (6.2-12.0); Monocyte# 0.81 X10^3/uL; Monocyte% 9.3 % (0-10); NRBC Flagged by Analyzer 0 % (0-5); Neutrophil # 6.03 X10^3/uL (2.7-7.7); Platelet Count 468 K/mm3 (150-450); RBC Distribution Width CV 17.8 % (11.6-14.6); RBC Distribution Width SD 48.5 fl (35.1-43.9); Red Blood Count 4.96 M/mm3 (4.2-5.4); White Blood Count 8.7 K/mm3 (4.4-11.0)
[2019-10-12 16:31] LABS: Erythrocyte Sedimentation Rate 13 mm/hr (0-20)
[2019-10-12 16:39] LABS: AST(SGOT) 14 U/L (15-37); Alanine Aminotransfer ALT/SGPT 19 U/L (13-56); Albumin, Serum 3.9 g/dL (3.2-5.0); Alkaline Phosphatase 91 U/L (45-117); Anion Gap 5 (5-15); BUN 11 mg/dL (7-18); BUN/Creat Ratio 15.2 RATIO (10-20); CRP < 2.90 mg/L (0.0-3.0); Calcium,Total 8.7 mg/dL (8.5-10.1); Chloride 105 mmol/L (98-107); Creatinine, Serum 0.72 mg/dL (0.55-1.02); EST Glomerular Filtration Rate 108 mL/min (>60); Est Glom Filt Rate - Afr Amer 130 mL/min (>60); Globulin 3.8 g/dL (2.2-4.2); Glucose 89 mg/dL (74-106); Potassium 3.8 mmol/L (3.5-5.1); Protein, Total 7.7 g/dL (6.4-8.2); Sodium Level 140 mmol/L (136-145)
[2019-10-16 11:52] LABS: Calprotectin, Stool 50 ug/g (0-120)
== END ==
PROVIDERS: PCP Family Medicine; Referring Provider Family Medicine; Visit Provider Family Medicine
DX: K51.90 Ulcerative colitis, unspecified, without complications (principal)
CPT/HCPCS: 36415; 80053; 83993; 85025; 85652; 86140

== ENCOUNTER → 2020-10-12 15:24 | Outpatient (CLI) | payer BC, SELFPAY ==
[2020-10-12 17:56] LABS: Absolute Neutrophil Count 4.7 X10^3/uL (2.0-7.7); Basophil# 0.07 X10^3/uL; Basophil% 0.9 % (0-1); Eosinophil# 0.19 X10^3/uL; Eosinophils% 2.4 % (0-5); Hematocrit 42.6 % (37-47); Hemoglobin 13.7 g/dL (12.0-15.0); Lymphocyte % 27.8 % (19-41); Mean Corp Hgb Conc 32.2 g/dL (32-36); Mean Corpuscular Hgb 28.1 pg (27.0-32.0); Mean Corpuscular Volume 87.5 fL (81-99); Monocyte# 0.72 X10^3/uL; Monocyte% 9.1 % (0-10); NRBC Flagged by Analyzer 0 % (0-5); Neutrophil # 4.71 X10^3/uL (2.7-7.7); Neutrophil % 59.4 % (47-70); Platelet Count 376 K/mm3 (150-450); RBC Distribution Width CV 12.9 % (11.6-14.6); RBC Distribution Width SD 41.6 fl (35.1-43.9); Red Blood Count 4.87 M/mm3 (4.2-5.4); White Blood Count 7.9 K/mm3 (4.4-11.0)
[2020-10-12 18:10] LABS: Vitamin B12 506 pg/mL (211-911); Vitamin D,25 Hydroxy 11.9 ng/mL
[2020-10-12 18:16] LABS: ALB/GLOB Ratio 1.2 RATIO (0.9-2.4); AST(SGOT) 17 U/L (15-37); Alanine Aminotransfer ALT/SGPT 24 U/L (13-56); Albumin, Serum 4.1 g/dL (3.2-5.0); Alkaline Phosphatase 70 U/L (45-117); Anion Gap 6 (5-15); BUN 8 mg/dL (7-18); BUN/Creat Ratio 10.4 RATIO (10-20); Calcium,Total 8.7 mg/dL (8.5-10.1); Chloride 107 mmol/L (98-107); Creatinine, Serum 0.77 mg/dL (0.55-1.02); EST Glomerular Filtration Rate 99 mL/min (>60); Est Glom Filt Rate - Afr Amer 120 mL/min (>60); Globulin 3.3 g/dL (2.2-4.2); Glucose 83 mg/dL (74-106); Protein, Total 7.4 g/dL (6.4-8.2); Sodium Level 138 mmol/L (136-145)
== END ==
PROVIDERS: PCP Family Medicine; Referring Provider Family Medicine; Visit Provider Family Medicine
DX: K51.90 Ulcerative colitis, unspecified, without complications (principal)
CPT/HCPCS: 36415; 80053; 82306; 82607; 83735; 85025

== ENCOUNTER 2021-02-16 15:26 | Emergency (ER) | payer OTHER, SELFPAY ==
[2021-02-16 15:27] VITALS: BP 151/68; PULSE 105; RESP 16; TEMP 36.6; O2SAT 98; BMI 23.4
[2021-02-16 16:26] LABS: Absolute Lymphocyte Count 2.32 X10^3/uL (0.83-4.51); Absolute Neutrophil Count 7.9 X10^3/uL (2.0-7.7); Basophil% 0.8 % (0-1); Eosinophil# 0.54 X10^3/uL; Eosinophils% 4.4 % (0-5); Hematocrit 42.1 % (37-47); Hemoglobin 13.7 g/dL (12.0-15.0); Lymphocyte # 2.32 X10^3/ul (0.83-4.51); Lymphocyte % 18.8 % (19-41); Mean Corp Hgb Conc 32.5 g/dL (32-36); Mean Corpuscular Hgb 28.6 pg (27.0-32.0); Mean Corpuscular Volume 87.9 fL (81-99); Mean Platelet Vol. 8.8 fl (6.2-12.0); Monocyte# 1.37 X10^3/uL; Monocyte% 11.1 % (0-10); NRBC Flagged by Analyzer 0 % (0-5); Neutrophil # 7.87 X10^3/uL (2.7-7.7); Platelet Count 490 K/mm3 (150-450); RBC Distribution Width CV 13.2 % (11.6-14.6); RBC Distribution Width SD 42.6 fl (35.1-43.9); Red Blood Count 4.79 M/mm3 (4.2-5.4); White Blood Count 12.3 K/mm3 (4.4-11.0)
[2021-02-16 16:39] LABS: Anion Gap 5 (5-15); BUN 6 mg/dL (7-18); BUN/Creat Ratio 7.8 RATIO (10-20); Calcium,Total 8.7 mg/dL (8.5-10.1); Chloride 104 mmol/L (98-107); Creatinine, Serum 0.77 mg/dL (0.55-1.02); EST Glomerular Filtration Rate 99 mL/min (>60); Est Glom Filt Rate - Afr Amer 120 mL/min (>60); Estimated Creatinine Clearance 85.75 ml/min; Glucose 89 mg/dL (74-106); Potassium 3.8 mmol/L (3.5-5.1); Sodium Level 137 mmol/L (136-145)
[2021-02-16 16:49] LABS: Bacteria 0 SEEN /hpf (None Seen); Mucous, Urine 0 SEEN /hpf (<or=2+)
[2021-02-16 16:52] LABS: Color, Urine Yellow (Yellow); Glucose, Dipstick Normal (Normal); Leukocyte Esterase-Dipstick 25 /ul (Negative); Nitrite-Dipstick Negative (Negative); Occult Blood-Urine 250 /ul (Negative); Protein-Dipstick 30 mg/dl (Negative); Specific Gravity, Urine 1.025 (1.002-1.030); Urine Bilirubin Dipstick Negative (Negative); Urine Clarity Sl. Cloudy (Clear); Urine Urobilinogen Normal (Normal)
[2021-02-16 16:57] LABS: Ketone-Dipstick 150 mg/dl (Negative)
--- NOTE | 2021-02-16 16:57 | EDS_ITS ---
HPI HPI - GI History of Present Illness Chief Complaint: Abd Pain Detail of Chief Complaint: Abdominal pain for several months Informant: patient Diarrhea/Melena/Hematochezia GI Symptom: Positive for Hematochezia Narrative Narrative: Patient presents with abdominal pain for the last 2 months or so. She has a history of ulcerative colitis and sees Dr. Armstrong who used to have her on Entyvio and that was controlling her well. Patient then was tried on several different medications to try to control her symptoms and currently is on budeson [place] but it is not helping. Patient complains of abdominal pain and cramping and bloody diarrhea and generalized weakness. Patient was scheduled to see Dr. Armstrong in March but then had to have her appointment rescheduled and does not feel like she can wait that long. Patient denies fevers. She denies urinary symptoms. Her last menstrual period was about a week ago. Prior similar symptoms: Yes [facility] Medical History (Updated 02/16/21 @ 17:[address] Lizzy Pena, DO) Smoker Substance abuse Ulcerative colitis Home Medications budesonide [Uceris] 9 mg PO DAILY 02/16/21 [History Last Taken Unknown] prednisone 10 mg PO DAILY #120 tab 02/16/21 [Rx Last Taken Unknown] Allergy/AdvReac Type Severity Reaction Status Date / Time No Known Allergies Allergy Verified 02/16/21 15:27 Social History Smoking Status: Current every day smoker tobacco type: e-cigarettes ROS ROS ED Constitutional Constitutional ED: Reports systems reviewed and no addt'l complaints, except as documented; Denies body ache(s), change in weight or chills Eyes Eyes: Denies acute decrease in peripheral vision, change in vision, double vision or loss of vision ENT ENT ED: Reports none; Denies ear pain, lip swelling, loss taste/smell, neck pain, otalgia or sore throat Cardiovascular Cardiovascular: Reports none; Denies abdominal pain, chest pain with activity, leg edema, lightheadedness, palpitations, rapid heart rate or syncope Respiratory/Chest Respiratory/Chest: Reports none; Denies change in mental status, dry cough, dyspnea, hemoptysis, shortness of breath at rest or shortness of breath with exertion Gastrointestinal Gastrointestinal: Reports none, abdominal pain and diarrhea; Denies change in stool character, hematemesis, hematochezia, melena, rectal bleeding or vomiting Genitourinary Genitourinary ED: Reports none; Denies abdominal discomfort, anuria, dysuria, genital pain or polyuria Musculoskeletal Musculoskeletal: Reports none; Denies arthralgias, back pain, difficulty walking, extremity pain, muscle weakness or myalgias Integumentary Reports none; Denies abscess or rash Neurologic Neurologic: Reports none; Denies abnormal gait, confusion, focal weakness, frequent falls, headache(s), loss of vision, numbness, paresthesias, radicular pain, vertigo or weakness Psychiatric Psychiatric: Reports systems reviewed and no addt'l complaints, except as documented and none; Denies behavioral changes, confusion, difficulty concentrating, hallucinations, suicidal ideation, tactile hallucinations or visual hallucinations Endocrine Endocrinology: Denies none, cold intolerance, excessive sweating, fatigue or heat intolerance Hematologic/Lymphatic Hematologic/Lymphatic: Reports none; Denies anemia, easy bleeding or easy bruising Allergic/Immunologic Allergic/Immunologic ED: Denies as per HPI, none, lip swelling, mouth swelling, throat swelling, tongue swelling or hives EXAM Physical Exam Const Vital Signs: 02/16/21 15:27 Temperature 97.8 F Temperature Source Temporal Pulse Rate 105 H Respiratory Rate 16 Blood Pressure 151/68 H Blood Pressure Mean 95 Pulse Ox 98 Oxygen Delivery Method Room Air Positive well nourished and well developed General Appearance ED: well developed and NAD HEENT Reports TM's clear and moist mucous membranes normocephalic and atraumatic; Negative for trauma or tenderness Tympanic Membrane ED: Yes TM's clear Eyes PERRL and EOMs intact bilaterally General Eye ED: Negative for pale conjunctiva or scleral icterus Neck no lymphadenopathy, supple and no JVD General: Negative for tenderness Chest Wall inspection of chest normal and palpation of chest normal Chest: Negative for tenderness Resp normal respiratory effort and clear to auscultation bilaterally Effort and Inspection: Negative for respiratory distress or pain with movement Auscultation: Negative for rhonchi, wheezes or diminished lung sounds Cardio regular rate, regular rhythm, S1 normal heart sound, S2 normal heart sound and no murmurs Peripheral Pulses: pulses 2+ throughout GI normal to inspection, nondistended, normoactive bowel sounds, soft to palpation, non-distended and no masses GI Narrative: Mild diffuse lower abdominal pain. There is no rebound, rigidity, or peritoneal signs. Auscultation: normoactive bowel sounds Palpation: tender Back/Spine no CVA tenderness and no thoracic nor lumbar tenderness Extremity normal to inspection General Extremety ED: Negative for edema General Extremity: Negative for edema Neuro oriented x3, CN's II-XII intact bilaterally, no sensory deficits noted and gait normal Sensorium / Orientation: awake, alert, oriented to person, oriented to place and oriented to time Motor Exam: strength 5/5 throughout and strength abnormal Psych mental status grossly normal Skin no rashes or lesions noted and no wounds MDM MDM MDM Narrative Medical decision making narrative: Discussed results with patient and discussed obtaining a CT scan of the abdomen pelvis which she refused. Patient states that last time she had a CT scan she had to come out of pocket $2000 and it really did not add much to the diagnosis. Patient has known severe ulcerative colitis. She does not have a fever and otherwise looks well. I did discuss case with her [place] teacher Dr. Gold Armstrong who asked that we start patient on prednisone along with her budesonide and they will attempt to get her started back on her Entyvio which will need to be done as an outpatient. Patient is comfortable with this plan. Lab Data Attestation: I reviewed the patient's lab results. Labs: Laboratory Results - last 24 hr 02/16/21 02/16/21 02/16/21 16:20 16:20 16:20 WBC 12.3 H RBC 4.79 Hgb 13.7 Hct 42.1 MCV 87.9 MCH 28.6 MCHC 32.5 RDW Std Deviation 42.6 RDW Coeff of Waldo 13.2 Plt Count 490 H MPV 8.8 Immature Gran % (Auto) 0.900 Neut % (Auto) 64.0 Lymph % (Auto) 18.8 L [place] % (Auto) 11.1 H Eos % (Auto) 4.4 Baso % (Auto) 0.8 Absolute Neuts (auto) 7.9 H Absolute Lymphs (auto) 2.32 Nucleated RBC % 0 Sodium 137 Potassium 3.8 Chloride 104 Carbon Dioxide 28.0 Anion Gap 5 BUN 6 L Creatinine 0.77 Estim Creat Clear Calc 85.75 Est GFR (MDRD) Af Amer 120 Est GFR (MDRD) Non-Af 99 BUN/Creatinine Ratio 7.8 L Glucose 89 Calcium 8.7 Serum , Qual NEGATIVE Urine Color Urine Clarity Urine pH Ur Specific [place] Urine Protein Urine Glucose (UA) Urine Ketones Urine Occult Blood Urine Nitrite Urine Bilirubin Urine Urobilinogen Ur Leukocyte Esterase Urine RBC Urine WBC Ur Squamous Epith Cells Amorphous Sediment Urine Bacteria Urine Mucus 02/16/21 16:43 WBC RBC Hgb Hct MCV MCH MCHC RDW Std Deviation RDW Coeff of [place]do Plt Count MPV Immature Gran % (Auto) Neut % (Auto) Lymph % (Auto) [place] % (Auto) Eos % (Auto) Baso % (Auto) Absolute Neuts (auto) Absolute Lymphs (auto) Nucleated RBC % Sodium Potassium Chloride Carbon Dioxide Anion Gap BUN Creatinine Estim Creat Clear Calc Est GFR (MDRD) Af Amer Est GFR (MDRD) Non-Af BUN/Creatinine Ratio Glucose Calcium Serum , Qual Urine Color Yellow Urine Clarity Sl. Cloudy Urine pH 5.0 Ur Specific [place] 1.025 Urine Protein 30 H Urine Glucose (UA) Normal Urine Ketones 150 A* Urine Occult Blood 250 H Urine Nitrite Negative Urine Bilirubin Negative Urine Urobilinogen Normal Ur Leukocyte Esterase 25 H Urine RBC 10-25 SEEN Urine WBC 0-5 SEEN Ur Squamous Epith Cells 10-25 SEEN Amorphous Sediment 1+ URATE Urine Bacteria 0 SEEN Urine Mucus 0 SEEN Discharge Plan Triage Chief Complaint: Abd Pain ED Provider: Lizzy Pena Dx/Rx/DC Orders Clinical Impression: Exacerbation of ulcerative colitis Instructions: Colitis Ulcerative Dc, ED Ulcerative Colitis Prescriptions: New prednisone 10 mg tablet 10 mg PO DAILY Qty: 120 RF: 0 No Action budesonide [Uceris] 9 mg tablet,delayed and ext.release 9 mg PO DAILY RF: 0 Primary Care Provider: Dorian Luna Referrals: Dorian Luna MD [Primary Care Provider] - Gold Armstrong MD [NON-STAFF] - 3-5 Days Disposition Disposition: Home, Self Care
[2021-02-16 16:59] LABS: Red Blood Cells-Urine 10-25 SEEN /hpf (0-5); Squamous Epithelial Cells - UA 10-25 SEEN /hpf (5-10); White Blood Cells 0-5 SEEN /hpf (0-5)
[2021-02-16 17:00] LABS: Amorphous Sediment 1+ URATE
[2021-02-16 17:09] LABS: Internal QC Validated? YES +Cl - CLEAR BKGD; Pregnancy, Serum, hCG Quali. NEGATIVE Negative
[2021-02-16] MEDS: predniSONE 20 MG Tablet 40 MG PO (17:50)
[2021-02-16 17:57] VITALS: BP 123/83; PULSE 91; RESP 16; O2SAT 99
== END 2021-02-16 17:58 | disposition home or self-care (01) ==
PROVIDERS: Emergency Provider Emergency Medicine; PCP Family Medicine
DX: R10.9 Unspecified abdominal pain (principal); K51.90 Ulcerative colitis, unspecified, without complications; Z79.52 Long term (current) use of systemic steroids; Z79.899 Other long term (current) drug therapy
CPT/HCPCS: 80048; 81001; 84703; 85025; 99284; A4216

== ENCOUNTER 2021-03-20 00:51 | Emergency (ER) | payer OTHER, SELFPAY ==
[2021-03-20 00:53] VITALS: BP 137/86; PULSE 127; RESP 18; TEMP 37.3; O2SAT 99; BMI 21.7
[2021-03-20 01:17] LABS: Hematocrit 42.6 % (37-47); Hemoglobin 13.8 g/dL (12.0-15.0); Mean Corp Hgb Conc 32.4 g/dL (32-36); Mean Corpuscular Volume 86.4 fL (81-99); Mean Platelet Vol. 8.6 fl (6.2-12.0); POSITIVE COUNT YES; POSITIVE DIFFERENTIAL YES; POSITIVE MORPHOLOGY YES; Platelet Count 642 K/mm3 (150-450); RBC Distribution Width CV 13.6 % (11.6-14.6); RBC Distribution Width SD 42.6 fl (35.1-43.9); Red Blood Count 4.93 M/mm3 (4.2-5.4); White Blood Count 21.4 K/mm3 (4.4-11.0)
[2021-03-20 01:19] LABS: Differential Indicated MANUAL DIFF
[2021-03-20 01:26] LABS: Mucous, Urine 0 SEEN /hpf (<or=2+); White Blood Cells 0 SEEN /hpf (0-5)
[2021-03-20 01:28] LABS: Color, Urine Yellow (Yellow); Glucose, Dipstick Normal (Normal); Leukocyte Esterase-Dipstick Negative /ul (Negative); Nitrite-Dipstick Negative (Negative); Occult Blood-Urine 250 /ul (Negative); Protein-Dipstick 30 mg/dl (Negative); Urine Bilirubin Dipstick Negative (Negative); Urine Clarity Clear (Clear); Urine Urobilinogen Normal (Normal)
[2021-03-20 01:39] LABS: ALB/GLOB Ratio 0.7 RATIO (0.9-2.4); AST(SGOT) 15 U/L (15-37); Alanine Aminotransfer ALT/SGPT 18 U/L (13-56); Albumin, Serum 3.3 g/dL (3.2-5.0); Alkaline Phosphatase 79 U/L (45-117); Anion Gap 6 (5-15); BUN 5 mg/dL (7-18); BUN/Creat Ratio 6.3 RATIO (10-20); Calcium,Total 8.9 mg/dL (8.5-10.1); Chloride 102 mmol/L (98-107); Creatinine, Serum 0.79 mg/dL (0.55-1.02); EST Glomerular Filtration Rate 95 mL/min (>60); Est Glom Filt Rate - Afr Amer 115 mL/min (>60); Estimated Creatinine Clearance 83.57 ml/min; Globulin 4.5 g/dL (2.2-4.2); Glucose 96 mg/dL (74-106); Potassium 3.8 mmol/L (3.5-5.1); Protein, Total 7.8 g/dL (6.4-8.2); Sodium Level 138 mmol/L (136-145)
[2021-03-20 01:46] LABS: Ketone-Dipstick 150 mg/dl (Negative)
[2021-03-20 01:47] LABS: Amorphous Sediment 1+; Bacteria 4+ /hpf (None Seen); Internal QC Validated? YES +Cl - CLEAR BKGD; Pregnancy, Urine Negative Negative; Red Blood Cells-Urine 10-25 SEEN /hpf (0-5); Squamous Epithelial Cells - UA 10-25 SEEN /hpf (5-10)
--- NOTE | 2021-03-20 02:24 | CT_ITS ---
STUDY: CT ABDOMEN AND PELVIS WITH CONTRAST REASON FOR EXAM: Female, 21 years old. Abdominal pain RADIATION DOSAGE (If Supplied By Facility): CTDIvol = ( 7.94 ) mGy, DLP = ( 276.71 ) mGycm TECHNIQUE: Transaxial images were obtained from the dome of the diaphragm to the symphysis pubis without oral contrast. IV 100mL Isovue-370 was administered. Sagittal and coronal images were reconstructed. Individualized dose optimization techniques were used for this CT. COMPARISON 04/28/2019 FINDINGS: Lung bases clear. Unremarkable liver, spleen, pancreas, adrenals, and bilateral kidneys. No definite cholelithiasis. Marked circumferential wall thickening of the entire colon and rectum with minimal surrounding fat stranding. Findings are consistent with acute pancolitis and proctitis. Bowel loops nonobstructed. Normal appendix. No free air or free fluid. No adenopathy. Intact abdominal aorta and its major branches. Sections through the pelvis demonstrate an incompletely distended urinary bladder. There is suggestion of right-sided hydrosalpinx/pyosalpinx versus a septated cystic lesion in the adnexa. Ultrasound may be obtained. Osseous structures are intact. CT/Abdomen/Pelvis W IV Cont ONLY IMPRESSION: Findings compatible with acute pancolitis and proctitis. Suggestion of right-sided hydrosalpinx/pyosalpinx versus a septated cystic lesion in the adnexa. Ultrasound may be obtained for further evaluation. Electronically Signed: Raj Allred MD at 2:59 EDT Tel , Service support ,
--- NOTE | 2021-03-20 02:25 | ED.VIS.GI ---
HPI HPI - GI History of Present Illness Chief Complaint: Abd Pain Narrative Narrative: 20-year-old female with history of ulcerative colitis presenting with lower abdominal pain. She points to her lower abdomen on the left and the right. Patient admits to nausea, vomiting, diarrhea. Patient sees Dr. Armstrong on an outpatient basis and he did last colonoscopy about 6 months ago. Patient is currently on prednisone 20 mg daily. She is also been taking Entyvio prescribed by Dr. Armstrong for 4 weeks. She states this will be therapeutic until 6 weeks. She states her pain has been worse over the last 2 days. She denies fevers. She denies concern for . She has no urinary complaints. [facility] Medical History Smoker Substance abuse Ulcerative colitis Home Medications prednisone 20 mg PO DAILY 03/20/21 [History Last Taken Unknown] Allergy/AdvReac Type Severity Reaction Status Date / Time No Known Allergies Allergy Verified 03/20/21 00:52 Social History Smoking Status: Current every day smoker tobacco type: e-cigarettes ROS ROS ED Constitutional Constitutional ED: Denies chills or fever(s) ENT ENT ED: Denies rhinorrhea or sore throat Cardiovascular Cardiovascular: Denies chest pain or palpitations Respiratory/Chest Respiratory/Chest: Denies cough or dyspnea Gastrointestinal Gastrointestinal: Reports abdominal pain, diarrhea, nausea and vomiting Genitourinary Genitourinary ED: Denies dysuria or hematuria Musculoskeletal Musculoskeletal: Denies myalgias Integumentary Denies Abrasions or rash Neurologic Neurologic: Denies headache(s) or paresthesias EXAM Physical Exam Const Vital Signs: 03/20/21 00:53 03/20/21 04:47 03/20/21 06:00 Temperature 99.2 F H Temperature Source Temporal Pulse Rate 127 H 102 H Respiratory Rate 18 16 17 Blood Pressure 137/86 H 124/89 H Blood Pressure Mean 103 100 Pulse Ox 99 99 Positive well nourished General Appearance ED: NAD HEENT Reports moist mucous membranes normocephalic and atraumatic Eyes PERRL and EOMs intact bilaterally Resp normal respiratory effort and clear to auscultation bilaterally Cardio regular rhythm Rate: tachycardic GI non-distended Palpation: soft and tender LLQ and RLQ Extremity full ROM General Extremety ED: Negative for edema General Extremity: Negative for edema Neuro Sensorium / Orientation: alert, oriented to person, oriented to place and oriented to time Psych mental status grossly normal and thought process normal Skin Lesions: no lesions Rashes: no rashes MDM MDM MDM Narrative Medical decision making narrative: Patient presenting with abdominal pain and history of ulcerative colitis. She is currently on therapy for this. She is given morphine and Zofran on arrival. I did obtain lab work which shows she has a leukocytosis of 21.4, hemoglobin 13.8 which is actually higher than previous, hematocrit 42.6, platelets 642. Patient has a history of elevated platelets. Renal function electrolytes are normal. LFTs are normal. Urinalysis shows no elevation in leukocyte esterase and nitrites are negative. Patient has partially contaminated specimen and there is some occult blood in this sample as well. Patient was given IV fluids and her pain and nausea did improve but then returned. She is given 2 separate doses of morphine and still having pain. CT of the abdomen pelvis initially showed concern for pancolitis but also did show concern for possible hydrosalpinx or pyosalpinx. Follow-up ultrasound shows that there is possibly a hemorrhagic cyst versus clearing endometrioma with internal bleeding. Recommended follow-up this would be 6 to 10 weeks. Patient is again been given multiple doses of morphine and is still having pain. By her vital signs, blood work she meet sepsis criteria. Patient given Cipro and Flagyl. Patient discussed with [facility] transfer line who accepted transfer ED to ED. Dr. Knox is accepting physician. Impression: 1. Sepsis 2. Ulcerative colitis flare 3. Ovarian cyst Lab Data Attestation: I reviewed the patient's lab results. Labs: Laboratory Results - last 24 hr 03/20/21 03/20/21 03/20/21 01:00 01:00 01:20 WBC 21.4 H RBC 4.93 Hgb 13.8 Hct 42.6 MCV 86.4 MCH 28.0 MCHC 32.4 RDW Std Deviation 42.6 RDW Coeff of Waldo 13.6 Plt Count 642 H MPV 8.6 Neut % (Auto) Not Reportable Absolute Neuts (auto) 16.1 H Absolute Lymphs (auto) 2.14 Neutrophils % (Manual) 40 L Band Neutrophils % 35 H Lymphocytes % (Manual) 10 L Monocytes % (Manual) 9 Eosinophils % (Manual) 1 Myelocytes % 2 H Promyelocytes % 3 H Diff Path Review May foll Platelet Estimate MKD INC RBC Morphology NORM C+C Sodium 138 Potassium 3.8 Chloride 102 Carbon Dioxide 30.0 Anion Gap 6 BUN 5 L Creatinine 0.79 Estim Creat Clear Calc 83.57 Est GFR (MDRD) Af Amer 115 Est GFR (MDRD) Non-Af 95 BUN/Creatinine Ratio 6.3 L Glucose 96 Calcium 8.9 Total Bilirubin 0.50 AST 15 ALT 18 Alkaline Phosphatase 79 Total Protein 7.8 Albumin 3.3 Globulin 4.5 H Albumin/Globulin Ratio 0.7 L Urine Color Yellow Urine Clarity Clear Urine pH 6.0 Ur Specific [place] 1.020 Urine Protein 30 H Urine Glucose (UA) Normal Urine Ketones 150 A* Urine Occult Blood 250 H Urine Nitrite Negative Urine Bilirubin Negative Urine Urobilinogen Normal Ur Leukocyte Esterase Negative Urine RBC 10-25 SEEN Urine WBC 0 SEEN Ur Squamous Epith Cells 10-25 SEEN Amorphous Sediment 1+ Urine Bacteria 4+ Urine Mucus 0 SEEN Urine Test Negative Radiography Diagnostic Testing: Radiology Impression Abdomen/Pelvis CT 03/20/21 02:24 IMPRESSION: Findings compatible with acute pancolitis and proctitis. Suggestion of right-sided hydrosalpinx/pyosalpinx versus a septated cystic lesion in the adnexa. Ultrasound may be obtained for further evaluation. Electronically Signed: Raj Allred MD at 2:59 EDT Tel , Service support , Transvaginal US 03/20/21 03:34 IMPRESSION: Right ovarian 3.2 cm heterogeneous mass, possibly representing hemorrhagic cyst or endometrioma with layering internal hemorrhage. Follow-up ultrasound is recommended in 6 or 10 weeks. Nonspecific thickening along the endocervical canal with layering fluid, most likely physiologic. This can be reassessed on follow-up ultrasound recommended above. Would also ensure currency of cervical cancer screening. Trace free fluid in the pelvis which is likely physiologic. Otherwise unremarkable uterus and left ovary. at 0630 Reported and signed by: Angel Saravia MD Electronically Signed: Angel Saravia MD at 6:29 EDT Tel , Service support , Discharge Plan Triage Chief Complaint: Abd Pain ED Provider: Talha Landis Dx/Rx/DC Orders Prescriptions: No Action prednisone 10 mg tablet 20 mg PO DAILY RF: 0 Primary Care Provider: Dorian Luna
[2021-03-20 02:30] LABS: Absolute Lymphocyte Count 2.14 X10^3/uL (0.83-4.51); Absolute Neutrophil Count 16.1 X10^3/uL (2.0-7.7); Eosinophil 1 % (0-5); Lymphocyte 10 % (19-41); Monocyte 9 % (0-10); Myelocyte 2 % (0-0); Neutrophil-Band 35 % (0-5); Neutrophil-Segmented 40 % (47-70); Promyelocyte 3 % (0-0)
[2021-03-20 02:31] LABS: Platelet Estimate MKD INC (ADEQ); Red Cell Morphology NORM C+C NORMAL (NORM C&C)
[2021-03-20] MEDS: Morphine 4 MG/ML Syringe IV ×3 (02:49→07:07)
[2021-03-20] MEDS: Ondansetron 4 MG/2 ML Vial IV (02:49)
--- NOTE | 2021-03-20 02:49 | NURSING ---
not given covid vaccine d/y immunosuppressive therapy for UC
[2021-03-20] MEDS: 0.9% Normal Saline 1,000 ML 999 ML IV (02:50)
--- NOTE | 2021-03-20 03:34 | US_ITS ---
HISTORY: pelvic pain EXAMINATION: US Transvaginal Non-OB TECHNIQUE: Transvaginal (for optimal evaluation of the adnexa) pelvic ultrasound was performed. Grayscale, spectral waveform, and color flow Doppler evaluation of the adnexa. COMPARISON: March 20, 2021 CT abdomen and pelvis. FINDINGS: UTERUS: Anteverted uterus 8.2 x 3.0 x 4.1 cm with normal myometrial appearance. Normal trilaminar 9 mm endometrial stripe at the uterine body and fundus with mild thickening along the endocervical canal with endocervical fluid.. RIGHT OVARY: 4.3 x 3.7 x 2.9 cm. 3.2 cm heterogeneous nonvascular mass, mostly homogeneous with anechoic fluid layer. Additional 2.9 cm anechoic ovarian follicle is present. Preserved Doppler vascular flow. LEFT OVARY: 1.7 x 1.4 x 1.4 cm. Multiple normal small follicles. Preserved Doppler vascular flow. FREE FLUID: Small volume anechoic free fluid in the cul-de-sac. US/Transvaginal Non- IMPRESSION: Right ovarian 3.2 cm heterogeneous mass, possibly representing hemorrhagic cyst or endometrioma with layering internal hemorrhage. Follow-up ultrasound is recommended in 6 or 10 weeks. Nonspecific thickening along the endocervical canal with layering fluid, most likely physiologic. This can be reassessed on follow-up ultrasound recommended above. Would also ensure currency of cervical cancer screening. Trace free fluid in the pelvis which is likely physiologic. Otherwise unremarkable uterus and left ovary. at 0630 Reported and signed by: Angel Saravia MD Electronically Signed: Angel Saravia MD at 6:29 EDT Tel , Service support ,
[2021-03-20 04:47] VITALS: BP 124/89; PULSE 102; RESP 16; O2SAT 99
[2021-03-20 06:00] VITALS: RESP 17
--- NOTE | 2021-03-20 06:53 | NURSING ---
CALLED [facility] ABOUT TRANSFER. LEFT MESSAGE
--- NOTE | 2021-03-20 07:13 | NURSING ---
CALLED [facility], TALKED TO GARRICK/. NO BEDS AND SOME IN ER WAITING
--- NOTE | 2021-03-20 07:24 | NURSING ---
FAXED FACESHEET TO [facility] TALKED TO MENA ON TRANSFER LINE
[2021-03-20] MEDS: Ciprofloxacin 400 MG/200 ML BAG 200 MG IV (07:44)
--- NOTE | 2021-03-20 07:46 | NURSING ---
CALLED [facility], ETA IS 60 MIN
[2021-03-20 08:06] LABS: Lactic Acid 1.9 mmol/L (0.4-1.9)
[2021-03-20] MEDS: metroNIDAZOLE 500 MG/100 ML BAG 100 MG IV (08:50)
[2021-03-20 10:04] VITALS: BP 132/86; PULSE 102; RESP 17; O2SAT 97
[2021-03-20 15:51] LABS: Pathologist Review Reviewed
== END 2021-03-20 10:05 | disposition short-term general hospital (02) ==
LOC: ED 02:22
PROVIDERS: Emergency Provider Student in an Organized Health Care Education/Training Program; PCP Family Medicine
DX: A41.9 Sepsis, unspecified organism (principal); K51.90 Ulcerative colitis, unspecified, without complications; N83.209 Unspecified ovarian cyst, unspecified side; Z79.52 Long term (current) use of systemic steroids
CPT/HCPCS: 36415; 74177; 76830; 80053; 81001; 81025; 83605; 85025; 87040; 87086; 87088; 93976; 96361; 96365; 96367; 96375; 96376; 99285; J7030; J7050; Q9967; A4216; J0744; J2405

== ENCOUNTER → 2021-03-30 11:42 | Outpatient (CLI) | payer OTHER, SELFPAY ==
[2021-03-30 15:05] LABS: Hematocrit 26.6 % (37-47); Hemoglobin 8.4 g/dL (12.0-15.0); Mean Corp Hgb Conc 31.6 g/dL (32-36); Mean Corpuscular Hgb 30.3 pg (27.0-32.0); Mean Platelet Vol. 8.7 fl (6.2-12.0); POSITIVE COUNT YES; POSITIVE DIFFERENTIAL YES; POSITIVE MORPHOLOGY YES; RBC Distribution Width CV 15.9 % (11.6-14.6); RBC Distribution Width SD 53.8 fl (35.1-43.9); Red Blood Count 2.77 M/mm3 (4.2-5.4)
[2021-03-30 15:15] LABS: Differential Indicated MANUAL DIFF; Platelet Count 873 K/mm3 (150-450); White Blood Count 37.7 K/mm3 (4.4-11.0)
[2021-03-30 15:26] LABS: Blast 1 % (0-0); Eosinophil 1 % (0-5); Lymphocyte 31 % (19-41); Metamyelocyte 3 % (0-1); Monocyte 4 % (0-10); Myelocyte 5 % (0-0); Neutrophil-Segmented 53 % (47-70); Platelet Estimate MKD INC (ADEQ); Promyelocyte 2 % (0-0); Red Cell Morphology NORM C+C NORMAL (NORM C&C); Total Cells Counted 100 (MANUAL DIFF)
[2021-03-31 12:55] LABS: Pathologist Review Reviewed
== END ==
PROVIDERS: PCP Family Medicine; Visit Provider Family Medicine
DX: D72.829 Elevated white blood cell count, unspecified (principal)
CPT/HCPCS: 36415; 85025

== ENCOUNTER → 2021-03-31 15:33 | Outpatient (CLI) | payer OTHER, SELFPAY ==
[2021-03-31 18:12] LABS: Hematocrit 25.1 % (37-47); Hemoglobin 7.9 g/dL (12.0-15.0); Mean Corp Hgb Conc 31.5 g/dL (32-36); Mean Corpuscular Hgb 30.4 pg (27.0-32.0); Mean Corpuscular Volume 96.5 fL (81-99); Mean Platelet Vol. 8.6 fl (6.2-12.0); POSITIVE COUNT YES; POSITIVE DIFFERENTIAL YES; POSITIVE MORPHOLOGY YES; RBC Distribution Width CV 16.6 % (11.6-14.6); RBC Distribution Width SD 54.5 fl (35.1-43.9); White Blood Count 28.9 K/mm3 (4.4-11.0)
[2021-03-31 18:54] LABS: Differential Indicated MANUAL DIFF
[2021-03-31 18:56] LABS: Platelet Count 932 K/mm3 (150-450)
[2021-03-31 19:00] LABS: Eosinophil 6 % (0-5); Lymphocyte 24 % (19-41); Monocyte 5 % (0-10); Myelocyte 3 % (0-0); Neutrophil-Band 2 % (0-5); Neutrophil-Segmented 60 % (47-70); Nucleated Red Bld Cells,Manual 2 % (0-5); Total Cells Counted 100 (MANUAL DIFF)
[2021-03-31 19:02] LABS: Absolute Lymphocyte Count 6.95 X10^3/uL (0.83-4.51); Absolute Neutrophil Count 17.9 X10^3/uL (2.0-7.7)
[2021-04-03 13:56] LABS: Pathologist Review Reviewed
== END ==
PROVIDERS: PCP Family Medicine; Visit Provider Family Medicine
DX: E87.6 Hypokalemia (principal); D72.829 Elevated white blood cell count, unspecified
CPT/HCPCS: 36415; 85025

== ENCOUNTER 2021-03-31 21:00 | Emergency (ER) | payer OTHER, SELFPAY ==
[2021-03-31] VITALS (7 sets, daily range): BP systolic 108–127; BP diastolic 64–80; PULSE 113–142; RESP 16–23; TEMP 36.2–36.7; O2SAT 98–99; BMI 21.4
--- NOTE | 2021-03-31 22:18 | EDS_ITS ---
HPI History of Present Illness Chief Complaint: Abn Labs Informant: patient Narrative Narrative: Patient is a 21-year-old female that just left AMA from [facility] after 12- day hospital stay 2 days ago. Patient states she was there for a flare of her ulcerative colitis. She was treated with a dose of Remicade and steroids. Her last dose of 2 days ago. steroids were Patient had abnormal labs while she was in the hospital as well as and on outpatient labs patient had a white blood cell count of 37.7 and a platelet count of 873 1% blast cells yesterday. She had repeat blood work today which showed a white blood cell count of 28.9 and platelet count of 932. Patient was sent to the emergency room for further evaluation as her doctor did not want her to wait the weekend to have this reviewed by hematology. She does not currently follow with a dialysis tech. She notes that she did have abnormal labs in the hospital at [facility]. She states she feels fatigued but overall is feeling better. She does have intermittent palpitations and states her heart rate was elevated when she was in the hospital. She states she was never checked for DVT. She has no chest pain or shortness of breath. She states that the blood in her stool has resolved and she is no longer having any abdominal pain. Her bowel movements are soft. Patient currently has no other complaints. [facility] Medical History Smoker Substance abuse Ulcerative colitis Home Medications NK 03/31/21 [History Last Taken Unknown] Allergy/AdvReac Type Severity Reaction Status Date / Time No Known Allergies Allergy Verified 03/20/21 00:52 Social History Smoking Status: Current every day smoker tobacco type: e-cigarettes ROS ROS ED Constitutional Constitutional ED: Denies chills or fever(s) ENT ENT ED: Denies ear pain or rhinorrhea Cardiovascular Cardiovascular: Reports racing heartbeat; Denies chest pain or palpitations Respiratory/Chest Respiratory/Chest: Denies cough or dyspnea Gastrointestinal Gastrointestinal: Denies abdominal pain, diarrhea, nausea or vomiting Genitourinary Genitourinary ED: Denies dysuria or hematuria Musculoskeletal Musculoskeletal: Denies arthralgias or myalgias Integumentary Denies rash Neurologic Neurologic: Denies headache(s) or weakness Psychiatric Psychiatric: Denies anxiety or depression EXAM Physical Exam Const Vital Signs: 03/31/21 21:02 03/31/21 21:52 03/31/21 21:55 Temperature 97.2 F L 97.9 F Temperature Source Temporal Temporal Pulse Rate 142 H 119 H Respiratory Rate 20 H 16 Respiratory Effort Normal Respiratory Pattern Normal Blood Pressure 108/67 115/80 Blood Pressure Mean 80 91 Pulse Ox 98 98 Oxygen Delivery Method Room Air Room Air 03/31/21 21:56 03/31/21 21:57 03/31/21 22:13 Temperature 97.2 F L 98.1 F Temperature Source Temporal Temporal Pulse Rate 142 H 120 H 118 H Respiratory Rate 20 H 18 Respiratory Effort Respiratory Pattern Blood Pressure 108/67 127/74 H Blood Pressure Mean 80 91 Pulse Ox 98 99 Oxygen Delivery Method Room Air Room Air 03/31/21 22:43 03/31/21 23:18 04/01/21 00:02 Temperature Temperature Source Pulse Rate 115 H 113 H 108 H Respiratory Rate 23 H 20 H 19 H Respiratory Effort Respiratory Pattern Blood Pressure 117/66 114/64 Blood Pressure Mean 83 80 Pulse Ox 98 99 98 Oxygen Delivery Method Room Air Room Air Room Air Positive well nourished and well developed General Appearance ED: well developed and pallor HEENT Reports dry mucous membranes Negative for tenderness Mouth ED: Yes dry mucous membranes Mouth: dry mucous membranes Eyes PERRL and EOMs intact bilaterally Neck no lymphadenopathy and supple Chest Wall inspection of chest normal Resp normal respiratory effort and clear to auscultation bilaterally Cardio regular rhythm and no murmurs GI normal to inspection, nondistended, normoactive bowel sounds and non-tender Palpation: soft Extremity normal to inspection Neuro oriented x3 and CN's II-XII intact bilaterally Sensorium / Orientation: alert Motor Exam: Negative for general weakness Psych mental status grossly normal Skin no rashes or lesions noted General Skin Exam: pallor MDM MDM MDM Narrative Medical decision making narrative: Patient is evaluated for abnormal laboratory findings. She did have 1% blast cells and her PCP was concerned that she required more emergent hematology evaluation. On arrival patient is slightly anemic appearing and tachycardic but otherwise in no acute distress. She is given IV fluids. Given her recent hospitalization, thrombocytosis and tachycardia I did obtain a D-dimer and then subsequently CTA looking for PE. This was negative. Patient's leukocytosis is downtrending it is now 26.3. No report of blast cells on her differential today however her platelet count is increasing it is now 999,000. She does not have any other laboratory abnormalities. Case is discussed with [facility] nurse practitioner, Naty Glover, who is agreeable with outpatient follow-up. They will call her on Saturday. She will need daily CBCs until she follows up with oncology/hematology. She also states that if her platelets go above 1.5 million she is at increased risk of bleeding and she should watch for signs of bleeding from the gums or ea sy bruising. Case and plan of care discussed with patient as well as her PCP. He will arrange for outpatient CBCs. Patient is discharged home in stable condition. She is agreeable with this plan of care. Lab Data Attestation: I reviewed the patient's lab results. Labs: Laboratory Results - last 24 hr 03/31/21 03/31/21 03/31/21 21:49 21:49 22:45 WBC 26.3 H RBC 2.71 L Hgb 8.1 L Hct 26.9 L MCV 99.3 H MCH 29.9 MCHC 30.1 L RDW Std Deviation 55.4 H RDW Coeff of Waldo 16.7 H Plt Count 999 H* MPV 8.5 Neut % (Auto) Not Reportable Absolute Neuts (auto) 16.0 H Absolute Lymphs (auto) 5.26 H Total Counted 100 Neutrophils % (Manual) 57 Band Neutrophils % 4 Lymphocytes % (Manual) 20 Monocytes % (Manual) 9 Eosinophils % (Manual) 7 H Myelocytes % 3 H Diff Path Review May foll D-Dimer Quant (PE/DVT) 0.54 H* Sodium 141 Potassium 3.4 L Chloride 105 Carbon Dioxide 30.0 Anion Gap 6 BUN 8 Creatinine 0.58 Estim Creat Clear Calc 113.83 Est GFR (MDRD) Af Amer 166 Est GFR (MDRD) Non-Af 137 BUN/Creatinine Ratio 13.8 Glucose 100 Calcium 8.7 Urine Color Urine Clarity Urine pH Ur Specific Jewett Urine Protein Urine Glucose (UA) Urine Ketones Urine Occult Blood Urine Nitrite Urine Bilirubin Urine Urobilinogen Ur Leukocyte Esterase Urine RBC Urine WBC Ur Squamous Epith Cells Urine Bacteria Urine Mucus Urine Test 04/01/21 00:15 WBC RBC Hgb Hct MCV MCH MCHC RDW Std Deviation RDW Coeff of Waldo Plt Count MPV Neut % (Auto) Absolute Neuts (auto) Absolute Lymphs (auto) Total Counted Neutrophils % (Manual) Band Neutrophils % Lymphocytes % (Manual) Monocytes % (Manual) Eosinophils % (Manual) Myelocytes % Diff Path Review D-Dimer Quant (PE/DVT) Sodium Potassium Chloride Carbon Dioxide Anion Gap BUN Creatinine Estim Creat Clear Calc Est GFR (MDRD) Af Amer Est GFR (MDRD) Non-Af BUN/Creatinine Ratio Glucose Calcium Urine Color Yellow Urine Clarity Clear Urine pH 8.0 Ur Specific Jewett 1.010 Urine Protein Negative Urine Glucose (UA) Normal Urine Ketones Negative Urine Occult Blood Negative Urine Nitrite Negative Urine Bilirubin Negative Urine Urobilinogen Normal Ur Leukocyte Esterase Negative Urine RBC 0 SEEN Urine WBC 0 SEEN Ur Squamous Epith Cells 0 SEEN Urine Bacteria RARE Urine Mucus 0 SEEN Urine Test Negative Radiography Diagnostic Testing: Radiology Impression Chest CTA 04/01/21 23:22 IMPRESSION: Normal CTA chest examination, without a demonstrated pulmonary embolism or arterial dissection. Electronically Signed: Torri Johnson MD at 1:22 EDT , Service support , Rhythm Strip Rhythm Strip: Sinus Tach Rate: 115 Ectopy: None EKG Initial EKG: Attestation: I personally reviewed and interpreted this EKG as follows: Interpretation: Sinus Tachycardia Comments: Sinus tachycardia rate of 115 Normal axis Normal intervals Normal ST segments Discharge Plan Triage Chief Complaint: Abn Labs ED Provider: Renee Blokc Dx/Rx/DC Orders Clinical Impression: Thrombocytosis, Leukocytosis, Anemia, Tachycardia Prescriptions: No Action NK RF: 0 Other Ambulatory Orders: CBC W/Diff, Automated (Stat) Timeframe: 1 Day Facility: [facility] - Location: Laboratory Ordered By: Dr. Renee Block Primary Care Provider: Dorian Luna Referrals: Dorian Luna MD [Primary Care Provider] - Naty Glover NP, [facility] [Nurse Practitioner] - 2 Days (Call on Saturday if you are not contacted ) Activity Restrictions/Additional Instructions: You need daily blood work over the weekend. Please follow-up with oncology on Saturday. They should contact you but if they do not you should call them. You have been given information. Please return the emergency room if you develop any abnormal bleeding such as bleeding of the gums or abnormal vaginal bleeding. Disposition Disposition: Home, Self Care Discharge Date/Time: 04/01/21 02:28
--- NOTE | 2021-03-31 22:19 | EKG12_ITS ---
Test Reason : ABN LABS Blood Pressure : / mmHG Vent. Rate : 115 BPM Atrial Rate : 115 BPM P-R Int : 140 ms QRS Dur : 076 ms QT Int : 310 ms P-R-T Axes : 066 061 037 degrees QTc Int : 428 ms Sinus tachycardia Otherwise normal ECG Confirmed by EN CUI, PAYTON ([id number]), manager editorial ETHEL MANDUJANO ([id number]) on 04/03/2021 12:47:18 PM Referred By: DR BURGESS Confirmed By:PAYTON GATICA MD
[2021-03-31] MEDS: 0.9% Normal Saline 1,000 ML 1000 ML IV (22:37)
[2021-03-31 22:41] LABS: Hematocrit 26.9 % (37-47); Hemoglobin 8.1 g/dL (12.0-15.0); Mean Corp Hgb Conc 30.1 g/dL (32-36); Mean Corpuscular Hgb 29.9 pg (27.0-32.0); Mean Corpuscular Volume 99.3 fL (81-99); Mean Platelet Vol. 8.5 fl (6.2-12.0); POSITIVE COUNT YES; POSITIVE DIFFERENTIAL YES; POSITIVE MORPHOLOGY YES; RBC Distribution Width CV 16.7 % (11.6-14.6); RBC Distribution Width SD 55.4 fl (35.1-43.9); Red Blood Count 2.71 M/mm3 (4.2-5.4); White Blood Count 26.3 K/mm3 (4.4-11.0)
[2021-03-31 22:49] LABS: Anion Gap 6 (5-15); BUN 8 mg/dL (7-18); BUN/Creat Ratio 13.8 RATIO (10-20); Calcium,Total 8.7 mg/dL (8.5-10.1); Chloride 105 mmol/L (98-107); Creatinine, Serum 0.58 mg/dL (0.55-1.02); EST Glomerular Filtration Rate 137 mL/min (>60); Est Glom Filt Rate - Afr Amer 166 mL/min (>60); Estimated Creatinine Clearance 113.83 ml/min; Glucose 100 mg/dL (74-106); Potassium 3.4 mmol/L (3.5-5.1); Sodium Level 141 mmol/L (136-145)
[2021-03-31 22:56] LABS: Differential Indicated MANUAL DIFF; Platelet Count 999 K/mm3 (150-450)
[2021-03-31 23:13] LABS: Eosinophil 7 % (0-5); Lymphocyte 20 % (19-41); Monocyte 9 % (0-10); Myelocyte 3 % (0-0); Neutrophil-Band 4 % (0-5); Neutrophil-Segmented 57 % (47-70); Total Cells Counted 100 (MANUAL DIFF)
[2021-03-31 23:16] LABS: Absolute Lymphocyte Count 5.26 X10^3/uL (0.83-4.51)
[2021-03-31 23:19] LABS: D-Dimer Quantitative (DVT/PE) 0.54 FEU/ug/m (0.27-0.49)
[2021-04-01 00:02] VITALS: PULSE 108; RESP 19; O2SAT 98
[2021-04-01 00:27] LABS: Mucous, Urine 0 SEEN /hpf (<or=2+); Red Blood Cells-Urine 0 SEEN /hpf (0-5); Squamous Epithelial Cells - UA 0 SEEN /hpf (5-10); White Blood Cells 0 SEEN /hpf (0-5)
[2021-04-01 00:31] LABS: Internal QC Validated? YES +Cl - CLEAR BKGD; Pregnancy, Urine Negative Negative
[2021-04-01 00:33] LABS: Color, Urine Yellow (Yellow); Glucose, Dipstick Normal (Normal); Ketone-Dipstick Negative (Negative); Leukocyte Esterase-Dipstick Negative /ul (Negative); Nitrite-Dipstick Negative (Negative); Occult Blood-Urine Negative /ul (Negative); Protein-Dipstick Negative (Negative); Urine Bilirubin Dipstick Negative (Negative); Urine Clarity Clear (Clear); Urine Urobilinogen Normal (Normal)
[2021-04-01 00:34] LABS: Bacteria RARE /hpf (None Seen)
--- NOTE | 2021-04-01 23:22 | CT_ITS ---
STUDY: CTA CHEST REASON FOR EXAM: Female, 21 years old. tachycardia, elevated dimer- concern for PE RADIATION DOSAGE (If Supplied By Facility): CTDIvol = ( 6.98 ) mGy, DLP = ( 210.12 ) mGycm TECHNIQUE: The examination was performed with the intravenous administration of IV 75mL Isovue-370. Post-processing of the angiographic images was performed, with multiplanar reformation and 3D reconstruction. Individualized dose optimization techniques were used for this CT. COMPARISON: None. FINDINGS: Normal enhancement of the main pulmonary artery and right and left pulmonary arteries. Normal enhancement of the bilateral peripheral pulmonary arteries. There is no demonstrated pulmonary embolism. Normal thoracic aorta and visualized great vessels. There is no demonstrated aortic dissection. Normal heart and pericardium. Normal mediastinum. Normal hilar regions. Normal visualized trachea and bronchi. The lungs are well expanded. Normal pulmonary parenchyma. Normal pleura. Normal chest wall structures. Normal osseous structures. Normal visualized upper abdomen. CT/CTA Chest W/WO Contrast IMPRESSION: Normal CTA chest examination, without a demonstrated pulmonary embolism or arterial dissection. Electronically Signed: Torri Johnson MD at 1:22 EDT , Service support ,
[2021-04-03 13:57] LABS: Pathologist Review Reviewed
== END 2021-04-01 02:28 | disposition home or self-care (01) ==
PROVIDERS: Emergency Provider Emergency Medicine; PCP Family Medicine
DX: D47.3 Essential (hemorrhagic) thrombocythemia (principal); D72.829 Elevated white blood cell count, unspecified; D64.9 Anemia, unspecified; R00.0 Tachycardia, unspecified; F17.290 Nicotine dependence, other tobacco product, uncomplicated
CPT/HCPCS: 71275; 80048; 81001; 81025; 85025; 85379; 93005; 96360; 96361; 99284; J7030; Q9967; A4216

== ENCOUNTER → 2021-04-01 12:48 | Outpatient (CLI) | payer OTHER, SELFPAY ==
[2021-04-01 13:10] LABS: Hematocrit 24.2 % (37-47); Hemoglobin 7.4 g/dL (12.0-15.0); Mean Corp Hgb Conc 30.6 g/dL (32-36); Mean Platelet Vol. 8.3 fl (6.2-12.0); POSITIVE COUNT YES; POSITIVE DIFFERENTIAL YES; POSITIVE MORPHOLOGY YES; RBC Distribution Width CV 17.3 % (11.6-14.6); RBC Distribution Width SD 56.8 fl (35.1-43.9); Red Blood Count 2.47 M/mm3 (4.2-5.4); White Blood Count 21.6 K/mm3 (4.4-11.0)
[2021-04-01 13:22] LABS: Differential Indicated MANUAL DIFF; Platelet Count 904 K/mm3 (150-450)
[2021-04-01 13:47] LABS: Eosinophil 7 % (0-5); Lymphocyte 19 % (19-41); Metamyelocyte 2 % (0-1); Monocyte 3 % (0-10); Myelocyte 4 % (0-0); Neutrophil-Segmented 65 % (47-70); Total Cells Counted 100 (MANUAL DIFF)
[2021-04-01 13:48] LABS: Absolute Neutrophil Count 14.1 X10^3/uL (2.0-7.7); Hypochromasia 2+; Platelet Estimate MKD INC (ADEQ)
[2021-04-01 13:49] LABS: Absolute Lymphocyte Count 4.11 X10^3/uL (0.83-4.51)
[2021-04-03 14:06] LABS: Pathologist Review Reviewed
== END ==
PROVIDERS: PCP Family Medicine; Visit Provider Emergency Medicine
DX: D47.3 Essential (hemorrhagic) thrombocythemia (principal); D72.829 Elevated white blood cell count, unspecified
CPT/HCPCS: 36415; 85025

== ENCOUNTER → 2021-04-02 14:58 | Outpatient (CLI) | payer OTHER, SELFPAY ==
[2021-04-02 15:12] LABS: Mean Corp Hgb Conc 30.5 g/dL (32-36); Mean Corpuscular Hgb 30.3 pg (27.0-32.0); Mean Corpuscular Volume 99.5 fL (81-99); Mean Platelet Vol. 8.1 fl (6.2-12.0); POSITIVE COUNT YES; POSITIVE MORPHOLOGY YES; RBC Distribution Width CV 18.8 % (11.6-14.6); RBC Distribution Width SD 66.1 fl (35.1-43.9); Red Blood Count 2.21 M/mm3 (4.2-5.4)
[2021-04-02 15:19] LABS: Differential Indicated MANUAL DIFF
[2021-04-02 15:47] LABS: Hemoglobin 6.7 g/dL (12.0-15.0); Platelet Count 774 K/mm3 (150-450); White Blood Count 20.3 K/mm3 (4.4-11.0)
[2021-04-02 16:14] LABS: Eosinophil 1 % (0-5); Lymphocyte 18 % (19-41); Metamyelocyte 2 % (0-1); Monocyte 2 % (0-10); Myelocyte 1 % (0-0); Neutrophil-Band 7 % (0-5); Neutrophil-Segmented 69 % (47-70); Total Cells Counted 100 (MANUAL DIFF)
[2021-04-02 16:16] LABS: Absolute Neutrophil Count 15.4 X10^3/uL (2.0-7.7)
[2021-04-02 16:17] LABS: Absolute Lymphocyte Count 3.66 X10^3/uL (0.83-4.51); Atypical Lymphocyte RARE %; Platelet Estimate MKD INC (ADEQ)
[2021-04-02 16:18] LABS: Anisocytosis 1+; Macrocytosis 1+; Red Cell Morphology N CHROM NORMAL (NORM C&C)
[2021-04-03 14:11] LABS: Pathologist Review Reviewed
== END ==
PROVIDERS: PCP Family Medicine; Visit Provider Emergency Medicine
DX: D47.3 Essential (hemorrhagic) thrombocythemia (principal); D72.829 Elevated white blood cell count, unspecified
CPT/HCPCS: 36415; 85025

== ENCOUNTER 2022-10-11 00:45 | Emergency (ER) | payer BC, SELFPAY ==
[2022-10-11 00:45] VITALS: BP 127/73; PULSE 100; RESP 18; TEMP 39.5; O2SAT 96; BMI 26.5
--- NOTE | 2022-10-11 01:22 | RAD_ITS ---
EXAM: XR CHEST, 1 VIEW CLINICAL INDICATION: cough TECHNIQUE: Frontal view of the chest. This report was created using [employer] report generation technology. COMPARISON: None. FINDINGS: LUNGS AND PLEURAL SPACES: Unremarkable. No consolidation or edema. No pneumothorax. No effusion. HEART: Unremarkable. Cardiac silhouette not enlarged. MEDIASTINUM: Central airways and mediastinal contour are unremarkable. BONES/JOINTS: Unremarkable. SOFT TISSUES: Unremarkable. RAD/Chest 1 View (Portable) IMPRESSION: No radiographic evidence of acute cardiopulmonary disease. Electronically Signed: Chalino Morris MD at 1:55 EST ,
[2022-10-11] MEDS: 0.9% Normal Saline 1,000 ML 999 ML IV (01:48)
[2022-10-11] MEDS: Ibuprofen 600 MG Tablet PO (01:49)
[2022-10-11 02:07] LABS: Absolute Lymphocyte Count 1.27 X10^3/uL (0.83-4.51); Absolute Neutrophil Count 3.6 X10^3/uL (2.0-7.7); Basophil# 0.03 X10^3/uL; Basophil% 0.5 % (0-1); Hematocrit 41.4 % (37-47); Hemoglobin 13.5 g/dL (12.0-15.0); Lymphocyte # 1.27 X10^3/ul (0.83-4.51); Lymphocyte % 22.3 % (19-41); Mean Corp Hgb Conc 32.6 g/dL (32-36); Mean Corpuscular Hgb 28.6 pg (27.0-32.0); Mean Corpuscular Volume 87.7 fL (81-99); Mean Platelet Vol. 9.7 fl (6.2-12.0); Monocyte# 0.72 X10^3/uL; Monocyte% 12.6 % (0-10); NRBC Flagged by Analyzer 0 % (0-5); Neutrophil # 3.64 X10^3/uL (2.7-7.7); Neutrophil % 63.9 % (47-70); Platelet Count 258 K/mm3 (150-450); RBC Distribution Width CV 13.1 % (11.6-14.6); RBC Distribution Width SD 42.1 fl (35.1-43.9); Red Blood Count 4.72 M/mm3 (4.2-5.4); White Blood Count 5.7 K/mm3 (4.4-11.0)
[2022-10-11 02:17] LABS: Internal QC Validated? YES +Cl - CLEAR BKGD; Pregnancy, Urine Negative Negative
[2022-10-11 02:24] LABS: Anion Gap 7 (5-15); BUN 9 mg/dL (7-18); BUN/Creat Ratio 13.5 RATIO (10-20); Calcium,Total 8.4 mg/dL (8.5-10.1); Chloride 103 mmol/L (98-107); Creatinine, Serum 0.67 mg/dL (0.55-1.02); EST Glomerular Filtration Rate 115 mL/min (>60); Est Glom Filt Rate - Afr Amer 139 mL/min (>60); Glucose 98 mg/dL (74-106); Potassium 3.4 mmol/L (3.5-5.1); Sodium Level 136 mmol/L (136-145)
--- NOTE | 2022-10-11 03:32 | EX.ED.DYSGE1 ---
HPI History of Present Illness Chief Complaint: Fever Narrative Narrative: Patient is a 22-year-old female with past medical history of ulcerative colitis who is on Remicade infusions every 6 weeks. She states that over the past 2 to 3 days she has had sore throat with slight congestion and cough and developed a fever up to 104 at home. She denies any known sick contacts and she is denies any abdominal pain or constipation. She states that based on the persistent fever she is concerned about a infectious process and secondary to this comes in for evaluation. [facility] Medical History Smoker Substance abuse Ulcerative colitis Home Medications prednisone 20 mg tablet 30 mg PO DAILY 04/11/21 [History Last Taken Unknown] prednisone 20 mg tablet 40 mg PO DAILY 5 days #10 tabs 10/11/22 [Rx Last Taken Unknown] Allergy/AdvReac Type Severity Reaction Status Date / Time No Known Allergies Allergy Verified 05/02/21 13:53 Social History (Updated 05/02/21 @ 13:55 by Leslie Lovett) Smoking Status: Current every day smoker tobacco type: e-cigarettes alcohol intake: current alcohol intake frequency: a few times a month Alcohol type: hard liquor substance use type: marijuana what type of physical activity do you participate in: none seatbelt use: always do you feel safe at home: Yes ROS ROS ED Constitutional Constitutional ED: Reports chills and fever(s) ENT ENT ED: Reports rhinorrhea and sore throat Cardiovascular Cardiovascular: Denies chest pain Respiratory/Chest Respiratory/Chest: Reports cough; Denies dyspnea Gastrointestinal Gastrointestinal: Denies abdominal pain, constipation, diarrhea, nausea or vomiting Genitourinary Genitourinary ED: Denies dysuria or hematuria Musculoskeletal Musculoskeletal: Reports myalgias Integumentary Denies rash Neurologic Neurologic: Denies headache(s) Hematologic/Lymphatic Hematologic/Lymphatic: Denies easy bleeding or easy bruising EXAM Physical Exam Const Vital Signs: 10/11/22 00:45 10/11/22 00:48 10/11/22 03:41 Temperature 103.1 F H 98.7 F Temperature Source Oral Pulse Rate 100 74 Respiratory Rate 18 18 Respiratory Effort Normal Non-Labored Respiratory Pattern Normal Blood Pressure 127/73 H Blood Pressure Mean 91 Pulse Ox 96 99 Oxygen Delivery Method Room Air Positive well nourished and well developed General Appearance ED: well developed HEENT HEENT Narrative: There is diffuse erythema in the posterior pharynx with +1 tonsil hypertrophy bilaterally and bilateral exudates. No hard palate petechiae noted. No trismus or change in voice or difficulty with secretions. No pain with extension and flexion of the neck. Eyes PERRL and EOMs intact bilaterally Neck supple Neck Narrative: Positive anterior cervical lymphadenopathy noted Resp normal respiratory effort and clear to auscultation bilaterally Cardio regular rate and regular rhythm GI normal to inspection, nondistended, normoactive bowel sounds, non-tender, non-distended and no masses GI Narrative: No voluntary guarding or rigidity no pulsatile mass Auscultation: normoactive bowel sounds Palpation: soft Extremity normal to inspection Extremity Narrative: No asymmetric edema no pitting edema negative Homans' sign bilaterally Neuro oriented x3 and CN's II-XII intact bilaterally Sensorium / Orientation: alert Psych mental status grossly normal Skin no rashes or lesions noted MDM MDM MDM Narrative Medical decision making narrative: Patient presented to the ER febrile otherwise with stable vitals. She had signs of posterior pharynx infection with tonsillar hypertrophy erythema and exudates but did not have physical exam findings to suggest peritonsillar abscess retropharyngeal abscess or epiglottitis. She technically has immunosuppression as she is on Remicade infusion. She denies any abdominal pain and she states that there is been no bouts of constipation or lack of passing flatus. She also denies any previous history of intestinal abscess. Therefore at this time her symptoms with mild congestion sore throat and cough are most consistent with viral syndrome. Patient blood work was obtained because of her immunosuppression status and shows no leukocytosis left shift or neutropenia. Kidney function electrolytes are stable as well. Influenza COVID and rapid strep were obtained and all were negative. This indicates that the changes in the posterior pharynx are most likely viral in nature. Patient was given hydration and antipyretics and had resolution of her temperature and blood pressure and vitals remained stable otherwise. Therefore at this time as her work-up indicates patient most likely has a viral syndrome without pneumonia concern for intestinal obstruction or intestinal abscess and no obvious findings to suggest peritonsillar abscess or epiglottitis she can just be given symptomatic treatment with steroids to reduce the inflammatory response and discharged home History & Record Review Discussion w/independent historian: Patient and Significant other Lab Data Attestation: I reviewed the patient's lab results. Labs: Laboratory Results - last 24 hr 10/11/22 10/11/22 10/11/22 01:59 01:59 02:06 WBC 5.7 RBC 4.72 Hgb 13.5 Hct 41.4 MCV 87.7 MCH 28.6 MCHC 32.6 RDW Std Deviation 42.1 RDW Coeff of Waldo 13.1 Plt Count 258 MPV 9.7 Immature Gran % (Auto) 0.700 Neut % (Auto) 63.9 Lymph % (Auto) 22.3 [place] % (Auto) 12.6 H Eos % (Auto) 0.0 Baso % (Auto) 0.5 Absolute Neuts (auto) 3.6 Absolute Lymphs (auto) 1.27 Nucleated RBC % 0 Sodium 136 Potassium 3.4 L Chloride 103 Carbon Dioxide 26.0 Anion Gap 7 BUN 9 Creatinine 0.67 Estim Creat Clear Calc 97.70 Est GFR (MDRD) Af Amer 139 Est GFR (MDRD) Non-Af 115 BUN/Creatinine Ratio 13.5 Glucose 98 Calcium 8.4 L Urine Test Negative Radiography Diagnostic Testing: Clinical Impression(s) from Imaging Studies Chest X-Ray 10/11/22 01:22 IMPRESSION: No radiographic evidence of acute cardiopulmonary disease. Electronically Signed: Chalino Morris MD at 1:55 EST , Chest x-ray as interpreted by the emergency medicine physician reveals no acute infiltrate pneumothorax or pleural effusion Discharge Plan Triage Chief Complaint: Fever ED Provider: Kelton Funez Dx/Rx/DC Orders Clinical Impression: Acute viral pharyngitis, Pyrexia Instructions: ED Fever Control (Adult), ED Pharyngitis, Viral Prescriptions: New prednisone 20 mg tablet 40 mg PO DAILY 5 Days Qty: 10 0RF No Action prednisone 20 mg Tablet 30 mg PO DAILY Primary Care Provider: Dorian Luna Referrals: Dorian Luna MD [Primary Care Provider] - Activity Restrictions/Additional Instructions: Your work-up today indicates this is most likely a viral illness which will last approximately 7 to 14 days. It is normal for a viral fever to last anywhere from 1 day to 1 week. If fever lasts longer than a week please return for repeat evaluation. Also if you have any worsening of symptoms or further concerns return to the ER for repeat evaluation Disposition Disposition: Home, Self Care Discharge Date/Time: 10/11/22 03:42
[2022-10-11 03:41] VITALS: PULSE 74; RESP 18; TEMP 37.1; O2SAT 99
== END 2022-10-11 03:42 | disposition home or self-care (01) ==
PROVIDERS: Emergency Provider Emergency Medicine; PCP Family Medicine; Visit Provider Emergency Medicine
DX: J02.9 Acute pharyngitis, unspecified (principal); D84.9 Immunodeficiency, unspecified; K51.90 Ulcerative colitis, unspecified, without complications; J35.1 Hypertrophy of tonsils; R50.9 Fever, unspecified; F17.290 Nicotine dependence, other tobacco product, uncomplicated; Z79.899 Other long term (current) drug therapy; Z79.52 Long term (current) use of systemic steroids; Z20.822 Contact with and (suspected) exposure to COVID-19
CPT/HCPCS: 71045; 80048; 81025; 85025; 87428; 87880; 96360; 96361; 99284; J7030; A4216

== ENCOUNTER 2022-12-31 23:06 | Emergency (ER) | payer BC, SELFPAY ==
[2022-12-31 23:07] VITALS: BP 149/85; PULSE 89; RESP 16; TEMP 36.4; O2SAT 99; BMI 24.5
--- NOTE | 2022-12-31 23:36 | EDS_ITS ---
HPI History of Present Illness Chief Complaint: Rash Narrative Narrative: Patient is a 22-year-old female with past medical history of ulcerative colitis currently on Remicade. She states that 3 weeks ago she had a sore throat and now placed on amoxicillin for potential strep. She states she took the amoxicillin for a few days and then began to break out in a rash. There was concern that she was having an acute allergic reaction to the amoxicillin and therefore was placed on prednisone. Patient states has been roughly 3 weeks and the rash is still present and she recently finished her prednisone dosage. She states that no one else at home has the rash and she denies any trouble breathing or swallowing but based on its persistent nature comes in for repeat evaluation [facility] Medical History Smoker Substance abuse Ulcerative colitis Home Medications prednisone 20 mg tablet 30 mg PO DAILY 04/11/21 [History Last Taken Unknown] prednisone 20 mg tablet 40 mg PO DAILY 5 days #10 tabs 10/11/22 [Rx Last Taken Unknown] Allergy/AdvReac Type Severity Reaction Status Date / Time amoxicillin Allergy Rash Verified 12/31/22 23:09 Social History (Updated 05/02/21 @ 13:55 by Leslie Lovett) Smoking Status: Current every day smoker tobacco type: e-cigarettes alcohol intake: current alcohol intake frequency: a few times a month Alcohol type: hard liquor substance use type: marijuana what type of physical activity do you participate in: none seatbelt use: always do you feel safe at home: Yes ROS ROS ED Constitutional Constitutional ED: Denies chills or fever(s) ENT ENT ED: Denies sore throat Cardiovascular Cardiovascular: Denies chest pain Respiratory/Chest Respiratory/Chest: Denies cough or dyspnea Gastrointestinal Gastrointestinal: Denies abdominal pain, diarrhea, nausea or vomiting Genitourinary Genitourinary ED: Denies dysuria Musculoskeletal Musculoskeletal: Denies myalgias Integumentary Reports rash Neurologic Neurologic: Denies headache(s) Hematologic/Lymphatic Hematologic/Lymphatic: Denies easy bleeding or easy bruising EXAM Physical Exam Const Vital Signs: 12/31/22 23:07 01/01/23 00:45 Temperature 97.5 F L Temperature Source Temporal Pulse Rate 89 69 Respiratory Rate 16 16 Blood Pressure 149/85 H Blood Pressure Mean 106 Pulse Ox 99 97 Oxygen Delivery Method Room Air Positive well nourished and well developed General Appearance ED: well developed HEENT Reports moist mucous membranes HEENT Narrative: No tongue or lip swelling. No oral lesions no airway edema or compromise Eyes PERRL and EOMs intact bilaterally Neck supple Neck Narrative: No nuchal rigidity or meningeal signs noted No singular posterior lymphadenopathy present Resp normal respiratory effort and clear to auscultation bilaterally Resp Narrative: No nasal flaring retractions tachypnea or accessory muscle use Cardio regular rate and regular rhythm Extremity normal to inspection Neuro oriented x3, CN's II-XII intact bilaterally and no sensory deficits noted Sensorium / Orientation: alert Psych mental status grossly normal Skin Skin Narrative: Patient has a maculopapular rash that is pinkish-red and excoriated that is blanchable in nature. No petechia or purpura noted. The rash encompasses the arms legs chest abdomen back and face. There is no involvement of the palms or soles. No vesicular or pustule changes present MDM MDM MDM Narrative Medical decision making narrative: Patient presented to the ER with stable vitals afebrile and in no acute respiratory distress. She reported that her rash began after taking amoxicillin that its been 3 weeks since that exposure and despite steroid use rash is still present. The rash is maculopapular erythematous and blanchable it is not purpura or petechial. As the patient states that the rash began after a sore throat with an amoxicillin use there is high likelihood this is related to mononucleosis/Marta-Sanchez virus. Secondary to this I did elect to perform basic laboratory studies with Monospot test. The patient's white count is elevated at 22.7 but she recently finished steroids and this is not to be unexpected. Liver enzymes are normal which would go against mono as a possible cause but as its been multiple weeks this could just be related to downtrending value. The Monospot test however was negative indicating that the rash could be related to her Remicade use or an autoimmune disease. There is also high likelihood that the patient has heterophile negative mono still causing the rash. Regards at this time there is no obvious signs of systemic infection such as erythema multiforme or Lyn-Henry syndrome associated with the rash therefore there is no need to send to a burn center or talk about placement in the hospital especially as there is no respiratory distress or airway compromise. Patient was advised she needs to see dermatology to discuss biopsy but at this time as she is hemodynamically stable can be treated on an outpatient basis History & Record Review Discussion w/independent historian: Patient and Significant other Lab Data Attestation: I reviewed the patient's lab results. Labs: Laboratory Results - last 24 hr 12/31/22 12/31/22 12/31/22 23:39 23:39 23:39 WBC 22.7 H RBC 4.76 Hgb 13.8 Hct 43.1 MCV 90.5 MCH 29.0 MCHC 32.0 RDW Std Deviation 47.0 H RDW Coeff of Waldo 14.2 Plt Count 508 H MPV 9.3 Immature Gran % (Auto) 3.600 H Neut % (Auto) 77.5 H Lymph % (Auto) 9.[address] [facility] % (Auto) 6.9 Eos % (Auto) 2.7 Baso % (Auto) 0.3 Absolute Neuts (auto) 17.6 H Absolute Lymphs (auto) 2.04 Nucleated RBC % 0 Differential Comment SCANNED Diff Path Review May foll Platelet Estimate MOD INC Sodium 139 Potassium 3.5 Chloride 104 Carbon Dioxide 27.0 Anion Gap 8 BUN 15 Creatinine 1.00 Estim Creat Clear Calc 65.46 Est GFR (MDRD) Af Amer 87 Est GFR (MDRD) Non-Af 72 BUN/Creatinine Ratio 15.0 Glucose 120 H Calcium 8.1 L Total Bilirubin 1.00 Direct Bilirubin 0.26 AST 25 ALT 25 Alkaline Phosphatase 75 C-React Prot Ext Range 22.40 H Total Protein 7.0 Albumin 3.1 L Globulin 3.9 Monoscreen Negative Discharge Plan Triage Chief Complaint: Rash ED Provider: Kelton Funez Dx/Rx/DC Orders Clinical Impression: Atopic dermatitis Instructions: What Is Atopic Dermatitis? Prescriptions: No Action prednisone 20 mg Tablet 30 mg PO DAILY prednisone 20 mg tablet 40 mg PO DAILY 5 Days Qty: 10 0RF Primary Care Provider: Dorian Luna Referrals: Dorian Luna MD [Primary Care Provider] - Sherri Demarco PA [Non-Staff] - Activity Restrictions/Additional Instructions: Please follow-up with dermatology as you may need a biopsy to further evaluate the cause of your persistent rash. Even though your monotest was negative there is a possibility you have a heterophile negative mononucleosis rash. If this is the case it should spontaneously resolve after a few more weeks. Please continue with lotions and oatmeal baths and cool compresses and take Benadryl for itch relief. If you develop a fever over 100.4 or have difficulty breathing or swallowing then please return to the ER for repeat evaluation. Disposition Disposition: Home, Self Care Discharge Date/Time: 01/01/23 00:55
[2022-12-31] MEDS: MethylPREDNISolone 125 MG/2 ML Vial IV (23:38)
[2022-12-31] MEDS: 0.9% Normal Saline 1,000 ML 999 ML IV (23:38)
[2022-12-31] MEDS: Ketorolac 30 MG/ML Syringe IV (23:38)
[2022-12-31] MEDS: DiphenhydrAMINE 50 MG/ML Syringe IV (23:39)
[2022-12-31] MEDS: Famotidine 200 MG/20 ML MDV 20 MG in 0.9% Normal Saline (Pres. free 8 ML 300 MG IV ×2 (23:48→23:49)
[2023-01-01 00:08] LABS: Absolute Lymphocyte Count 2.04 X10^3/uL (0.83-4.51); Absolute Neutrophil Count 17.6 X10^3/uL (2.0-7.7); Basophil# 0.07 X10^3/uL; Basophil% 0.3 % (0-1); Eosinophil# 0.61 X10^3/uL; Eosinophils% 2.7 % (0-5); Hematocrit 43.1 % (37-47); Hemoglobin 13.8 g/dL (12.0-15.0); Lymphocyte # 2.04 X10^3/ul (0.83-4.51); Mean Corpuscular Volume 90.5 fL (81-99); Mean Platelet Vol. 9.3 fl (6.2-12.0); Monocyte# 1.56 X10^3/uL; Monocyte% 6.9 % (0-10); NRBC Flagged by Analyzer 0 % (0-5); Neutrophil # 17.64 X10^3/uL (2.7-7.7); Neutrophil % 77.5 % (47-70); POSITIVE DIFFERENTIAL YES; POSITIVE MORPHOLOGY YES; Platelet Count 508 K/mm3 (150-450); RBC Distribution Width CV 14.2 % (11.6-14.6); Red Blood Count 4.76 M/mm3 (4.2-5.4); White Blood Count 22.7 K/mm3 (4.4-11.0)
[2023-01-01 00:11] LABS: AST(SGOT) 25 U/L (15-37); Alanine Aminotransfer ALT/SGPT 25 U/L (13-56); Albumin, Serum 3.1 g/dL (3.2-5.0); Alkaline Phosphatase 75 U/L (45-117); Anion Gap 8 (5-15); BUN 15 mg/dL (7-18); Bilirubin, Direct 0.26 mg/dL (0.00-0.30); Calcium,Total 8.1 mg/dL (8.5-10.1); Chloride 104 mmol/L (98-107); EST Glomerular Filtration Rate 72 mL/min (>60); Est Glom Filt Rate - Afr Amer 87 mL/min (>60); Estimated Creatinine Clearance 65.46 ml/min; Globulin 3.9 g/dL (2.2-4.2); Glucose 120 mg/dL (74-106); Potassium 3.5 mmol/L (3.5-5.1); Sodium Level 139 mmol/L (136-145)
[2023-01-01 00:23] LABS: Internal QC Validated? YES +Cl - CLEAR BKGD; Monotest Negative (Negative)
[2023-01-01 00:24] LABS: Differential Indicated SCAN CRITERIA MET
[2023-01-01 00:45] VITALS: PULSE 69; RESP 16; O2SAT 97
[2023-01-01 01:29] LABS: Differential Comment SCANNED; Platelet Estimate MOD INC (ADEQ)
[2023-01-01 12:08] LABS: Pathologist Review Reviewed
== END 2023-01-01 00:55 | disposition home or self-care (01) ==
PROVIDERS: Emergency Provider Emergency Medicine; PCP Family Medicine; Referring Provider Emergency Medicine; Visit Provider Emergency Medicine
DX: L20.9 Atopic dermatitis, unspecified (principal); K51.90 Ulcerative colitis, unspecified, without complications; F17.290 Nicotine dependence, other tobacco product, uncomplicated; Z79.899 Other long term (current) drug therapy
CPT/HCPCS: 80048; 80076; 85025; 86140; 86308; 96361; 96374; 96375; 99283; J7030; A4216; J3490

== ENCOUNTER → 2023-09-16 | Outpatient (CLI) | payer BC, SELFPAY ==
[2023-09-16 17:53] LABS: Hematocrit 41.8 % (37-47); Hemoglobin 13.4 g/dL (12.0-15.0); Mean Corp Hgb Conc 32.1 g/dL (32-36); Mean Corpuscular Hgb 28.5 pg (27.0-32.0); Mean Corpuscular Volume 88.7 fL (81-99); Mean Platelet Vol. 9.9 fl (6.2-12.0); Platelet Count 445 K/mm3 (150-450); RBC Distribution Width SD 42.5 fl (35.1-43.9); Red Blood Count 4.71 M/mm3 (4.2-5.4); White Blood Count 8.9 K/mm3 (4.4-11.0)
[2023-09-16 18:08] LABS: Erythrocyte Sedimentation Rate 12 mm/hr (0-30)
[2023-09-16 18:28] LABS: CRP < 2.90 mg/L (0.0-3.0); Iron 88 ug/dL (50-170)
== END | disposition home or self-care (01) ==
LOC: MFPLAB 15:44
PROVIDERS: Internal Medicine Gastroenterology; PCP Family Medicine; Visit Provider Family Medicine
DX: K51.90 Ulcerative colitis, unspecified, without complications (principal)
CPT/HCPCS: 36415; 83540; 85027; 85652; 86140

== ENCOUNTER → 2023-11-19 | Outpatient (CLI) | payer BC, SELFPAY | END | disposition home or self-care (01) | PROVIDERS: PCP Family Medicine; Referring Provider Internal Medicine Gastroenterology; Visit Provider Internal Medicine Gastroenterology | DX: K51.90 Ulcerative colitis, unspecified, without complications (principal) | CPT/HCPCS: 36415 ==

== ENCOUNTER → 2024-03-30 | Outpatient (CLI) | payer OTHER, SELFPAY ==
[2024-03-30 18:04] LABS: Hemoglobin 13.8 g/dL (12.0-15.0); Mean Corp Hgb Conc 32.9 g/dL (32-36); Mean Corpuscular Hgb 27.8 pg (27.0-32.0); Mean Corpuscular Volume 84.7 fL (81-99); Platelet Count 457 K/mm3 (150-450); RBC Distribution Width CV 12.7 % (11.6-14.6); RBC Distribution Width SD 38.9 fl (35.1-43.9); Red Blood Count 4.96 M/mm3 (4.2-5.4); White Blood Count 11.7 K/mm3 (4.4-11.0)
[2024-03-30 18:19] LABS: Erythrocyte Sedimentation Rate 22 mm/hr (0-30)
[2024-03-30 19:11] LABS: AST(SGOT) 14 U/L (15-37); Alanine Aminotransfer ALT/SGPT 15 U/L (13-56); Albumin, Serum 3.9 g/dL (3.2-5.0); Alkaline Phosphatase 72 U/L (45-117); Anion Gap 9 (5-15); BUN 8 mg/dL (7-18); BUN/Creat Ratio 10.2 RATIO (10-20); Calcium,Total 9.5 mg/dL (8.5-10.1); Chloride 106 mmol/L (98-107); Creatinine, Serum 0.79 mg/dL (0.55-1.02); EST Glomerular Filtration Rate 94 mL/min (>60); Est Glom Filt Rate - Afr Amer 113 mL/min (>60); Glucose 77 mg/dL (74-106); Potassium 3.8 mmol/L (3.5-5.1); Protein, Total 7.9 g/dL (6.4-8.2); Sodium Level 138 mmol/L (136-145)
== END | disposition home or self-care (01) ==
LOC: MTLAB 14:29
PROVIDERS: PCP Family Medicine; Referring Provider Internal Medicine Gastroenterology; Visit Provider Internal Medicine Gastroenterology
DX: K51.90 Ulcerative colitis, unspecified, without complications (principal)
CPT/HCPCS: 36415; 80053; 85027; 85652; 86140

== ENCOUNTER → 2024-05-05 | Outpatient (CLI) | payer OTHER, MEDICAID, SELFPAY ==
[2024-05-05 17:54] LABS: Hematocrit 43.3 % (37-47); Hemoglobin 13.8 g/dL (12.0-15.0); Mean Corp Hgb Conc 31.9 g/dL (32-36); Mean Corpuscular Hgb 28.1 pg (27.0-32.0); Mean Corpuscular Volume 88.2 fL (81-99); Mean Platelet Vol. 9.3 fl (6.2-12.0); Platelet Count 500 K/mm3 (150-450); RBC Distribution Width CV 14.4 % (11.6-14.6); Red Blood Count 4.91 M/mm3 (4.2-5.4); White Blood Count 18.1 K/mm3 (4.4-11.0)
[2024-05-05 18:06] LABS: CRP 4.02 mg/L (0.0-3.0)
== END | disposition home or self-care (01) ==
LOC: MTLAB 16:47
PROVIDERS: PCP Family Medicine; Referring Provider Family Medicine; Visit Provider Family Medicine
DX: K51.90 Ulcerative colitis, unspecified, without complications (principal)
CPT/HCPCS: 36415; 85027; 86140

== ENCOUNTER → 2024-07-16 | Outpatient (CLI) | payer MEDICAID, SELFPAY ==
[2024-07-16 09:42] LABS: Hematocrit 42.4 % (37-47); Mean Corpuscular Hgb 28.6 pg (27.0-32.0); Mean Corpuscular Volume 86.5 fL (81-99); Mean Platelet Vol. 9.6 fl (6.2-12.0); Platelet Count 463 K/mm3 (150-450); RBC Distribution Width CV 13.2 % (11.6-14.6); RBC Distribution Width SD 41.1 fl (35.1-43.9); White Blood Count 12.3 K/mm3 (4.4-11.0)
[2024-07-16 09:45] LABS: Erythrocyte Sedimentation Rate 28 mm/hr (0-30)
[2024-07-16 10:23] LABS: ALB/GLOB Ratio 0.9 RATIO (0.9-2.4); AST(SGOT) 11 U/L (15-37); Alanine Aminotransfer ALT/SGPT 17 U/L (13-56); Albumin, Serum 3.7 g/dL (3.2-5.0); Alkaline Phosphatase 76 U/L (45-117); Anion Gap 8 (5-15); BUN 8 mg/dL (7-18); BUN/Creat Ratio 10.2 RATIO (10-20); Chloride 106 mmol/L (98-107); Creatinine, Serum 0.79 mg/dL (0.55-1.02); EST Glomerular Filtration Rate 94 mL/min (>60); Est Glom Filt Rate - Afr Amer 113 mL/min (>60); Globulin 4.1 g/dL (2.2-4.2); Glucose 103 mg/dL (74-106); Potassium 3.6 mmol/L (3.5-5.1); Protein, Total 7.8 g/dL (6.4-8.2); Sodium Level 140 mmol/L (136-145)
== END | disposition home or self-care (01) ==
LOC: LAB 08:48
PROVIDERS: Referring Provider Internal Medicine Gastroenterology; Visit Provider Internal Medicine Gastroenterology
DX: K51.90 Ulcerative colitis, unspecified, without complications (principal); R19.7 Diarrhea, unspecified
CPT/HCPCS: 36415; 80053; 85027; 85652; 86140

== ENCOUNTER 2024-09-03 22:00 | Emergency (ER) | payer BC, SELFPAY ==
[2024-09-03 22:01] VITALS: BP 144/104; PULSE 89; RESP 16; TEMP 36.6; O2SAT 99; BMI 25.9
[2024-09-03 22:22] LABS: Absolute Lymphocyte Count 0.77 X10^3/uL (0.83-4.51); Absolute Neutrophil Count 14.1 X10^3/uL (2.0-7.7); Basophil# 0.05 X10^3/uL; Basophil% 0.3 % (0-1); Eosinophil# 0.01 X10^3/uL; Eosinophils% 0.1 % (0-5); Hematocrit 41.8 % (37-47); Hemoglobin 13.5 g/dL (12.0-15.0); Lymphocyte # 0.77 X10^3/ul (0.83-4.51); Lymphocyte % 4.8 % (19-41); Mean Corp Hgb Conc 32.3 g/dL (32-36); Mean Corpuscular Hgb 27.6 pg (27.0-32.0); Mean Corpuscular Volume 85.5 fL (81-99); Mean Platelet Vol. 9.3 fl (6.2-12.0); Monocyte# 0.94 X10^3/uL; Monocyte% 5.8 % (0-10); NRBC Flagged by Analyzer 0 % (0-5); Neutrophil # 14.14 X10^3/uL (2.7-7.7); Neutrophil % 87.6 % (47-70); Platelet Count 559 K/mm3 (150-450); RBC Distribution Width CV 13.7 % (11.6-14.6); RBC Distribution Width SD 42.7 fl (35.1-43.9); Red Blood Count 4.89 M/mm3 (4.2-5.4); White Blood Count 16.1 K/mm3 (4.4-11.0)
[2024-09-03 22:27] LABS: Mucous, Urine 0 SEEN /hpf (<or=2+)
[2024-09-03 22:32] LABS: Internal QC Validated? YES +Cl - CLEAR BKGD; Pregnancy, Serum, hCG Quali. NEGATIVE Negative
[2024-09-03 22:37] LABS: Color, Urine Yellow (Yellow); Glucose, Dipstick Normal (Normal); Ketone-Dipstick 15 mg/dl (Negative); Leukocyte Esterase-Dipstick 25 /ul (Negative); Nitrite-Dipstick Negative (Negative); Occult Blood-Urine 250 /ul (Negative); Protein-Dipstick 15 mg/dl (Negative); Specific Gravity, Urine 1.015 (1.002-1.030); Urine Bilirubin Dipstick Negative (Negative); Urine Clarity Clear (Clear); Urine Urobilinogen Normal (Normal)
[2024-09-03 22:39] LABS: AST(SGOT) 10 U/L (15-37); Alanine Aminotransfer ALT/SGPT 20 U/L (13-56); Albumin, Serum 3.9 g/dL (3.2-5.0); Alkaline Phosphatase 84 U/L (45-117); Anion Gap 8 (5-15); BUN 12 mg/dL (7-18); BUN/Creat Ratio 13.3 RATIO (10-20); Calcium,Total 9.4 mg/dL (8.5-10.1); Chloride 103 mmol/L (98-107); EST Glomerular Filtration Rate 80 mL/min (>60); Est Glom Filt Rate - Afr Amer 96 mL/min (>60); Estimated Creatinine Clearance 80.16 ml/min; Glucose 111 mg/dL (74-106); Potassium 3.8 mmol/L (3.5-5.1); Protein, Total 7.9 g/dL (6.4-8.2); Sodium Level 135 mmol/L (136-145)
[2024-09-03 23:09] LABS: Amorphous Sediment 1+; Bacteria RARE /hpf (None Seen); Red Blood Cells-Urine 0-5 SEEN /hpf (0-5); Squamous Epithelial Cells - UA 0-5 SEEN /hpf (5-10); Transitional Epithelial - Ur 0-5 SEEN /hpf (0-5); White Blood Cells 5-10 SEEN /hpf (0-5)
[2024-09-03] MEDS: Morphine 4 MG/ML Syringe IV (23:23)
[2024-09-03] MEDS: 0.9% Normal Saline (1000mL) 1,000 ML 1000 ML IV (23:23)
[2024-09-03] MEDS: Ondansetron 4 MG/2 ML Vial IV (23:24)
--- NOTE | 2024-09-03 23:35 | CT_ITS ---
PROCEDURE: ABDOMEN/PELVIS W IV CONT ONLY REASON FOR EXAM: Left flank pain. Dysuria TECHNIQUE: Abdomen and pelvis CT with intravenous contrast. IV CONTRAST: 97 mL of Isovue-300 COMPARISON: None. FINDINGS: Lung bases: Trace atelectasis within the lung bases. Liver: Homogeneous enhancement of the liver. No enhancing masses are identified. Gallbladder: Partially contracted. No calcified gallstones. Spleen: Homogeneous enhancement. No splenomegaly. Pancreas: Unremarkable. Adrenals: No adrenal masses are identified. Kidneys: 3 mm obstructing calculus within the left ureterovesicular junction. There is associated mild hydroureter and [id number]-[id number] hydronephrosis of the left kidney. Significant perinephric fat stranding is seen on the left. Right collecting system is negative. Bladder: Urinary bladder is partially decompressed. Reproductive Organs: Follicular changes are noted of the bilateral ovaries. Bowel: No bowel obstruction. Mild amounts of fecal retention. Left colon is predominantly decompressed. Appendix: Noninflammatory. Lymph nodes: Few scattered periaortic lymph nodes are identified, subcentimeter in size in short axis. No lymphadenopathy is appreciated. Vasculature: Major vascular structures are unremarkable. Peritoneum / Retroperitoneum: Trace free fluid is seen within the pelvis, likely physiologic. Bones: Intact. There is slight dextrocurvature centered at the thoracolumbar junction. CT/Abdomen/Pelvis W IV Cont ONLY IMPRESSION: 1. Punctate 3 mm obstructing calculus within the left ureterovesicular junction . There is associated mild hydroureter and [id number]-ru-lnubvcch hydronephrosis of the left kidney. Significant perinephric fa t stranding is seen on the left. 2. No bowel obstruction. Mild amounts of fecal retention. Appendix is negativ e. 3. Follicular changes involving the bilateral ovaries. Trace free fluid is see n within the pelvis, likely physiologic. One or more dose reduction techniques were used (e.g., Automated exposure contr ol, adjustment of the mA and/or kV according to patient size, use of iterative reconstruction technique). Reading [facility]
--- NOTE | 2024-09-04 00:05 | EDS_ITS ---
HPI History of Present Illness Chief Complaint: Flank Pain Informant: patient Narrative Narrative: Nontraumatic left flank pain 3 hours prior to arrival pain radiates to her side. Nausea and vomiting. No urinary symptoms. No fevers states has sweats due to pain. No history of kidney stone. History of ulcerative colitis with no abdominal surgeries. Prior similar symptoms: No PFSH PFSH Medical History Substance abuse Smoker Ulcerative colitis Home Medications ?Medication ?Instructions ?Recorded ?Last Taken ?Type prednisone 20 mg tablet 30 mg PO DAILY 04/11/21 Unkn own History etrasimod 2 mg tablet (Velsipity) 2 mg PO DAILY coliti s 09/03/24 Unknown History cefdinir 300 mg capsule 300 mg PO Q12H #14 caps 08/07 08/29 Unknown Rx ondansetron 4 mg disintegrating 4 mg PO Q8H PRN PRN Na usea #10 tabs 09/04/24 Unknown Rx tablet oxycodone-acetaminophen 5 mg-325 1 tab PO Q6H PRN PRN Pain 3 days 09/04/24 Unknown Rx mg tablet #12 TABLETS Allergy/AdvReac Type Severity Reaction Status Date / Time amoxicillin Allergy Rash Verified 09/03/24 22:02 Social History Smoking Status: Current every day smoker tobacco type: e-cigarettes alcohol intake: current alcohol intake frequency: a few times a month Alcohol type: hard liquor substance use type: marijuana what type of physical activity do you participate in: none seatbelt use: always do you feel safe at home: Yes ROS ROS ED Constitutional Constitutional ED: Denies chills, fever(s) or sweats ENT ENT ED: Denies sore throat Cardiovascular Cardiovascular: Denies chest pain, leg edema, palpitations or racing heartbeat Respiratory/Chest Respiratory/Chest: Denies cough, dyspnea or dyspnea on exertion Gastrointestinal Gastrointestinal: Reports abdominal pain, nausea and vomiting; Denies diarrhea Genitourinary Genitourinary ED: Denies dysuria, hematuria or urinary frequency Musculoskeletal Musculoskeletal: Reports back pain; Denies extremity pain or neck pain Integumentary Denies rash or wounds Neurologic Neurologic: Denies headache(s), paresthesias or weakness EXAM Physical Exam Const Vital Signs: 09/03/24 22:01 09/04/24 00:48 09/04/24 02:00 Temperature 97.8 F Temperature Source Oral Pulse Rate 89 106 H 99 Respiratory Rate 16 15 18 Blood Pressure 144/104 H 117/77 Blood Pressure Mean 117 90 Pulse Ox 99 98 98 Oxygen Delivery Method Room Air Room Air Room Air 09/04/24 02:05 Temperature 97.5 F L Temperature Source Pulse Rate 100 Respiratory Rate 18 Blood Pressure 125/79 H Blood Pressure Mean 94 Pulse Ox 97 Oxygen Delivery Method Positive well nourished and well developed Constitutional Narrative: Uncomfortable, nontoxic General Appearance ED: well developed HEENT Reports moist mucous membranes normocephalic and atraumatic Eyes General Eye ED: Yes normal appearance of both eyes Neck full ROM Chest Wall Chest: Negative for tenderness Resp normal respiratory effort and normal air movement Effort and Inspection: symmetric chest movement; Negative for respiratory distress Cardio regular rate, regular rhythm and no murmurs Peripheral Pulses: pulses 2+ throughout GI normal to inspection, nondistended, normoactive bowel sounds and non-tender GI Narrative: Tender mid abdomen. Negative Pereyra's or McBurney's tenderness. Palpation: Negative for guarding or rebound tenderness present Extremity normal to inspection General Extremety ED: Negative for edema or tenderness General Extremity: Negative for edema Neuro oriented x3 and no sensory deficits noted Sensorium / Orientation: awake and alert Skin no rashes or lesions noted and no wounds MDM MDM MDM Narrative Medical decision making narrative: Interventions / MDM: Differential diagnosis: Kidney stone, left renal colic, UTI, history of ulcerative colitis Diagnosis considered but do not suspect: N/A My EKG interpretation: N/A Imaging independently reviewed and interpreted by myself: CT abdomen pelvis IV contrast: 3 mm left UVJ stone. Also read by radiology. External documents reviewed: N/A Test considered but not ordered:N/A ED course: Patient uncomfortable flank pain rating to the side to her mid abdomen. No urinary symptoms. Laboratory studies ordered from nursing protocol. IV established fluids morphine Zofran, avoiding NSAIDs due to her ulcerative colitis history. CT scan abdomen pelvis ordered for further evaluation. 0040: Patient for additional morphine and Zofran. Labs white count 16 creatinine 0.9. Urine occult blood 25 leukocytes 5-10 WBCs rare bacteria. Urine culture sent. She does report dysuria for IV Rocephin ordered. CT scan results concerns for 3 mm left UVJ's obstructive stone. Pain still there, however improving. She recently received her pain medicine. Will reevaluate after antibiotic vitals. 0100: Reported by nursing nausea, therefore IV Reglan was ordered. Reevaluation symptoms are improving controlled. Sure for oral oxycodone due to late evening to help continue pain control. Mets to bed for Percocet, Zofran, cefdinir. She can follow-up with urology. Discussed if any worsening symptoms not controlled medications, return to the ED for reevaluation. Patient understands. All questions were answered. Re-evaluation: stable Disposition discussed with patient/family/significant other: Patient and significant other Case discussed with consulting clinician: N/A This note was generated with [employer] dictation software. It may contain incorrect words, spelling, and punctuation that were not noted in checking the note before signing. Lab Data Attestation: I reviewed the patient's lab results. Labs: Laboratory Results - last 24 hr 09/03/24 09/03/24 22:10 22:15 WBC 16.1 H RBC 4.89 Hgb 13.5 Hct 41.8 MCV 85.5 MCH 27.6 MCHC 32.3 RDW Std Deviation 42.7 RDW Coeff of Waldo 13.7 Plt Count 559 H MPV 9.3 Immature Gran % (Auto) 1.400 H Neut % (Auto) 87.6 H Lymph % (Auto) 4.8 L [place] % (Auto) 5.8 Eos % (Auto) 0.1 Baso % (Auto) 0.3 Absolute Neuts (auto) 14.1 H Absolute Lymphs (auto) 0.77 L Nucleated RBC % 0 Sodium 135 L Potassium 3.8 Chloride 103 Carbon Dioxide 24.0 Anion Gap 8 BUN 12 Creatinine 0.90 Estim Creat Clear Calc 80.16 Est GFR (MDRD) Af Amer 96 Est GFR (MDRD) Non-Af 80 BUN/Creatinine Ratio 13.3 Glucose 111 H Calcium 9.4 Total Bilirubin 0.60 AST 10 L ALT 20 Alkaline Phosphatase 84 Total Protein 7.9 Albumin 3.9 Globulin 4.0 Albumin/Globulin Ratio 1.0 Lipase 44 Serum , Qual NEGATIVE Urine Color Yellow Urine Clarity Clear Urine pH 6.0 Ur Specific Rough And Ready 1.015 Urine Protein 15 H Urine Glucose (UA) Normal Urine Ketones 15 H Urine Occult Blood 250 H Urine Nitrite Negative Urine Bilirubin Negative Urine Urobilinogen Normal Ur Leukocyte Esterase 25 H Urine RBC 0-5 SEEN Urine WBC 5-10 SEEN Ur Squamous Epith Cells 0-5 SEEN Ur Transition Epith Cell 0-5 SEEN Amorphous Sediment 1+ Urine Bacteria RARE Urine Mucus 0 SEEN Radiography Diagnostic Testing: Clinical Impression(s) from Imaging Studies Abdomen/Pelvis CT 09/03/24 23:35 IMPRESSION: 1. Punctate 3 mm obstructing calculus within the left ureterovesicular junction. There is associated mild hydroureter and kygl-[id number] hydronephrosis of the left kidney. Significant perinephric fat stranding is seen on the left. 2. No bowel obstruction. Mild amounts of fecal retention. Appendix is negative. 3. Follicular changes involving the bilateral ovaries. Trace free fluid is seen within the pelvis, likely physiologic. One or more dose reduction techniques were used (e.g., Automated exposure control, adjustment of the mA and/or kV according to patient size, use of iterative reconstruction technique). Reading Location: [facility] Discharge Plan Triage Chief Complaint: Flank Pain ED Provider: Gregory Chan Dx/Rx/DC Orders Clinical Impression: Urolithiasis, Kidney stone on left side, Vomiting, UTI (urinary tract infection) Instructions: Urinary Tract Infections in Women, ED Kidney Stone with Pain Prescriptions: New oxycodone-acetaminophen 5-325 mg tablet 1 tab PO Q6H PRN PRN (Reason: Pain) 3 Days Qty: 12 0RF ondansetron 4 mg tablet,disintegrating 4 mg PO Q8H PRN PRN (Reason: Nausea) Qty: 10 0RF cefdinir 300 mg capsule 300 mg PO Q12H Qty: 14 0RF No Action prednisone 20 mg Tablet 30 mg PO DAILY Velsipity 2 mg tablet 2 mg PO DAILY Stand Alone Forms: ED Work / School Excuse Primary Care Provider: Care Physician,No Primary Referrals: Aldo Cueva MD [Med Staff - Active Staff] - 3-5 Days Care Physician,No Primary [Primary Care Provider] - Activity Restrictions/Additional Instructions: 3 mm left UVJ stone. Normal kidney function. Urine with signs of an infection culture sent. Status post IV Rocephin. Strain your urine. Take and finish antibiotic as prescribed. Take pain medicines as needed, nausea medicine as needed. Your symptoms not controlled with medication and develop fevers worsening symptoms, return to the ED for reevaluation. Print Language: Azerbaijani Disposition Disposition: Home, Self Care Discharge Date/Time: 09/04/24 02:38
[2024-09-04] MEDS: Morphine 4 MG/ML Syringe IV (00:11)
[2024-09-04] MEDS: Ondansetron 4 MG/2 ML Vial IV (00:11)
[2024-09-04 00:40] LABS: Lipase 44 U/L (13-75)
[2024-09-04] MEDS: Ceftriaxone 1 GM/50 ML BAG IV (00:46)
[2024-09-04 00:48] VITALS: BP 117/77; PULSE 106; RESP 15; O2SAT 98
[2024-09-04] MEDS: Metoclopramide 10 MG/2 ML Vial 5 MG IV (01:08)
[2024-09-04 02:00] VITALS: PULSE 99; RESP 18; O2SAT 98
[2024-09-04 02:05] VITALS: BP 125/79; PULSE 100; RESP 18; TEMP 36.4; O2SAT 97
[2024-09-04] MEDS: oxyCODONE 5 MG Tablet PO (02:07)
== END 2024-09-04 02:38 | disposition home or self-care (01) ==
PROVIDERS: Emergency Provider Emergency Medicine; Visit Provider Emergency Medicine
DX: N13.6 Pyonephrosis (principal); K51.90 Ulcerative colitis, unspecified, without complications; R11.2 Nausea with vomiting, unspecified; F17.290 Nicotine dependence, other tobacco product, uncomplicated; Z79.899 Other long term (current) drug therapy
CPT/HCPCS: 74177; 80053; 81001; 83690; 84703; 85025; 87086; 96361; 96365; 96375; 96376; 99283; Q9967; A4216; J2405

== ENCOUNTER 2024-09-25 15:47 | Inpatient (IN) | payer BC, SELFPAY ==
[2024-09-25 15:48] VITALS: BP 142/98; PULSE 102; RESP 18; TEMP 36.8; O2SAT 97; BMI 24.0
[2024-09-25 18:07] LABS: Bacteria 0 SEEN /hpf (None Seen); Mucous, Urine 0 SEEN /hpf (<or=2+); White Blood Cells 0 SEEN /hpf (0-5)
[2024-09-25 18:07] LABS: Absolute Lymphocyte Count 0.39 X10^3/uL (0.83-4.51); Absolute Neutrophil Count 13.1 X10^3/uL (2.0-7.7); Basophil# 0.03 X10^3/uL; Basophil% 0.2 % (0-1); Hematocrit 42.8 % (37-47); Hemoglobin 14.3 g/dL (12.0-15.0); Lymphocyte # 0.39 X10^3/ul (0.83-4.51); Lymphocyte % 2.4 % (19-41); Mean Corp Hgb Conc 33.4 g/dL (32-36); Mean Corpuscular Hgb 28.3 pg (27.0-32.0); Mean Corpuscular Volume 84.8 fL (81-99); Mean Platelet Vol. 8.9 fl (6.2-12.0); Monocyte# 1.77 X10^3/uL; Monocyte% 11.1 % (0-10); NRBC Flagged by Analyzer 0 % (0-5); Neutrophil # 13.12 X10^3/uL (2.7-7.7); POSITIVE DIFFERENTIAL YES; POSITIVE MORPHOLOGY YES; Platelet Count 566 K/mm3 (150-450); RBC Distribution Width CV 14.6 % (11.6-14.6); RBC Distribution Width SD 44.5 fl (35.1-43.9); Red Blood Count 5.05 M/mm3 (4.2-5.4)
[2024-09-25 18:08] LABS: Differential Indicated SCAN CRITERIA MET
[2024-09-25 18:10] LABS: Color, Urine Yellow (Yellow); Glucose, Dipstick Normal (Normal); Ketone-Dipstick Negative (Negative); Leukocyte Esterase-Dipstick Negative /ul (Negative); Nitrite-Dipstick Negative (Negative); Occult Blood-Urine 50 /ul (Negative); Protein-Dipstick 30 mg/dl (Negative); Urine Bilirubin Dipstick Negative (Negative); Urine Clarity Cloudy (Clear); Urine Urobilinogen Normal (Normal)
[2024-09-25 18:17] LABS: Internal QC Validated? YES +Cl - CLEAR BKGD; Pregnancy, Serum, hCG Quali. NEGATIVE Negative
[2024-09-25 18:26] LABS: ALB/GLOB Ratio 0.7 RATIO (0.9-2.4); AST(SGOT) 9 U/L (15-37); Alanine Aminotransfer ALT/SGPT 16 U/L (13-56); Albumin, Serum 3.3 g/dL (3.2-5.0); Alkaline Phosphatase 85 U/L (45-117); Anion Gap 8 (5-15); BUN 9 mg/dL (7-18); BUN/Creat Ratio 10.7 RATIO (10-20); Calcium,Total 9.4 mg/dL (8.5-10.1); Chloride 97 mmol/L (98-107); Creatinine, Serum 0.84 mg/dL (0.55-1.02); EST Glomerular Filtration Rate 87 mL/min (>60); Est Glom Filt Rate - Afr Amer 105 mL/min (>60); Estimated Creatinine Clearance 82.94 ml/min; Globulin 4.6 g/dL (2.2-4.2); Glucose 112 mg/dL (74-106); Potassium 3.9 mmol/L (3.5-5.1); Protein, Total 7.9 g/dL (6.4-8.2); Sodium Level 136 mmol/L (136-145)
[2024-09-25 18:31] LABS: Differential Comment SEE COMMENTS; Platelet Estimate MOD INC (ADEQ)
[2024-09-25 18:33] LABS: Anisocytosis RARE; Red Cell Morphology NORM C+C NORMAL (NORM C&C)
[2024-09-25 18:45] LABS: Amorphous Sediment 2+ PHOS; Red Blood Cells-Urine 0-5 SEEN /hpf (0-5); Squamous Epithelial Cells - UA 0-5 SEEN /hpf (5-10)
[2024-09-25 19:00] VITALS: PULSE 85; RESP 16
--- NOTE | 2024-09-25 19:23 | EX.ED.DYSGE1 ---
HPI History of Present Illness Chief Complaint: Abd Pain Detail of Chief Complaint: Abdominal pain prior diarrhea and hematochezia Informant: patient Onset/Context/Timing Onset: Weeks (Approximately 3 weeks of hematochezia.) Context: Sudden Onset Timing: Continuous Quality: Bloating sensation prior to bloody diarrhea Location: Lower GI Current Severity: Moderate Maximum Severity: Severe Worsened by: History of UC Relieved by: Nothing Associated Symptoms Associated Symptoms: Per HPI narrative Narrative Narrative: Patient is a 24-year-old female. She has history of ulcerative colitis diagnosed at the age of 10. She started having bloody stools 3 weeks ago. She was placed on prednisone. She was seen by Dr. Gold Armstrong this past September 23. Her prednisone was up to 40 mg. She denies orthostatic symptoms. She denies dyspnea with exertion. She denies any other symptoms. Prior similar symptoms: Yes Recent Illness/Hospitalization: Yes [facility] Medical History Substance abuse Smoker Ulcerative colitis Home Medications ?Medication ?Instructions ?Recorded ?Last Taken ?Type prednisone 20 mg tablet 30 mg PO DAILY 04/11/21 Unknown History etrasimod 2 mg tablet (Velsipity) 2 mg PO DAILY colitis 09/03/24 Unknown History cefdinir 300 mg capsule 300 mg PO Q12H #14 caps 09/04/24 Unknown Rx ondansetron 4 mg disintegrating 4 mg PO Q8H PRN PRN Nausea #10 tabs 09/04/24 Unknown Rx tablet oxycodone-acetaminophen 5 mg-325 1 tab PO Q6H PRN PRN Pain 3 days 09/04/24 Unknown Rx mg tablet #12 TABLETS Allergy/AdvReac Type Severity Reaction Status Date / Time amoxicillin Allergy Rash Verified 09/25/24 15:49 Social History Smoking Status: Current every day smoker tobacco type: e-cigarettes alcohol intake: current alcohol intake frequency: a few times a month Alcohol type: hard liquor substance use type: marijuana what type of physical activity do you participate in: none seatbelt use: always do you feel safe at home: Yes ROS ROS ED Constitutional Constitutional ED: Denies chills, fever(s), subjective, sweats or weight loss Eyes Eyes: Denies blurry vision, change in vision or diplopia ENT ENT ED: Denies ear pain, rhinorrhea or sore throat Cardiovascular Cardiovascular: Denies chest pain, palpitations or racing heartbeat Respiratory/Chest Respiratory/Chest: Denies cough, dyspnea or dyspnea on exertion Gastrointestinal Gastrointestinal: Reports other Details: Hematochezia and tenesmus ; Denies abdominal pain Genitourinary Genitourinary ED: Denies dysuria, hematuria or urinary frequency Musculoskeletal Musculoskeletal: Denies arthralgias, back pain or myalgias Endocrine Endocrinology: Denies cold intolerance or heat intolerance Hematologic/Lymphatic Hematologic/Lymphatic: Reports systems reviewed and no addt'l complaints, except as documented EXAM Physical Exam Const Vital Signs: 09/25/24 15:48 Temperature 98.2 F Temperature Source Oral Pulse Rate 102 H Respiratory Rate 18 Blood Pressure 142/98 H Blood Pressure Mean 112 Pulse Ox 97 Oxygen Delivery Method Room Air Positive well nourished and well developed General Appearance ED: well developed and NAD; Negative for pallor HEENT Reports moist mucous membranes HEENT Narrative: Head is atraumatic normocephalic. Ears normal. Nares patent. Eyes PERRL and EOMs intact bilaterally General Eye ED: Negative for pale conjunctiva or scleral icterus Neck no lymphadenopathy, supple and no JVD Chest Wall inspection of chest normal Resp normal respiratory effort and clear to auscultation bilaterally Cardio regular rate, regular rhythm, S1 normal heart sound, S2 normal heart sound and no murmurs GI normal to inspection, nondistended, normoactive bowel sounds, non-tender, non-distended and no masses; Negative for hepatosplenomegaly Back/Spine no CVA tenderness Extremity normal to inspection Neuro oriented x3 and CN's II-XII intact bilaterally Sensorium / Orientation: alert Motor Exam: strength 5/5 throughout Psych mental status grossly normal Skin no rashes or lesions noted, no wounds and skin turgor normal General Skin Exam: elasticity normal; Negative for jaundice or pallor MDM MDM MDM Narrative Medical decision making narrative: Suspect patient has flare of her ulcerative colitis. There is no clinical suspicion for perforated viscus or other pathology causing her hematochezia. History & Record Review Additional record(s) reviewed:: Prior outpatient record (March 2021 seen by hematology for acquired iron deficiency due to decreased absorption.), Prior ED visit (August 2024 seen for left-sided kidney stone. December 2022 atopic dermatitis, October 2022 viral upper respiratory infection/pharyngitis.) and Other (February 2021 exacerbation of ulcerative colitis) Lab Data Attestation: I reviewed the patient's lab results. Lab results narrative: White count is elevated 16,000. There is a slight shift with no bandemia. Comprehensive metabolic panel is unremarkable. UA is unremarkable. Labs: Laboratory Results - last 24 hr 09/25/24 09/25/24 17:55 17:59 WBC 16.0 H RBC 5.05 Hgb 14.3 Hct 42.8 MCV 84.8 MCH 28.3 MCHC 33.4 RDW Std Deviation 44.5 H RDW Coeff of Waldo 14.6 Plt Count 566 H MPV 8.9 Immature Gran % (Auto) 4.300 H Neut % (Auto) 82.0 H Lymph % (Auto) 2.4 L [place] % (Auto) 11.1 H Eos % (Auto) 0.0 Baso % (Auto) 0.2 Absolute Neuts (auto) 13.1 H Absolute Lymphs (auto) 0.39 L Nucleated RBC % 0 Differential Comment SEE COMMENTS Diff Path Review May foll Platelet Estimate MOD INC RBC Morphology NORM C+C Anisocytosis RARE Sodium 136 Potassium 3.9 Chloride 97 L Carbon Dioxide 31.0 Anion Gap 8 BUN 9 Creatinine 0.84 Estim Creat Clear Calc 82.94 Est GFR (MDRD) Af Amer 105 Est GFR (MDRD) Non-Af 87 BUN/Creatinine Ratio 10.7 Glucose 112 H Calcium 9.4 Total Bilirubin 0.80 AST 9 L ALT 16 Alkaline Phosphatase 85 Total Protein 7.9 Albumin 3.3 Globulin 4.6 H Albumin/Globulin Ratio 0.7 L Serum , Qual NEGATIVE Urine Color Yellow Urine Clarity Cloudy Urine pH 7.0 Ur Specific Essie 1.010 Urine Protein 30 H Urine Glucose (UA) Normal Urine Ketones Negative Urine Occult Blood 50 H Urine Nitrite Negative Urine Bilirubin Negative Urine Urobilinogen Normal Ur Leukocyte Esterase Negative Urine RBC 0-5 SEEN Urine WBC 0 SEEN Ur Squamous Epith Cells 0-5 SEEN Amorphous Sediment 2+ PHOS Urine Bacteria 0 SEEN Urine Mucus 0 SEEN Management Discussion w/another healthcare provider: Hospitalist (Hospitalist was made aware and full admit MedSurg) and Sanitation Worker [employer]inery (Dr. Gold Armstrong and Dr. Pace) Discharge Plan Triage Chief Complaint: Abd Pain ED Provider: Elie Alvarado Dx/Rx/DC Orders Clinical Impression: Exacerbation of ulcerative colitis, Hematochezia, Sinus tachycardia seen on laboratory monitor Prescriptions: No Action prednisone 20 mg Tablet 30 mg PO DAILY Velsipity 2 mg tablet 2 mg PO DAILY oxycodone-acetaminophen 5-325 mg tablet 1 tab PO Q6H PRN PRN (Reason: Pain) 3 Days Qty: 12 0RF ondansetron 4 mg tablet,disintegrating 4 mg PO Q8H PRN PRN (Reason: Nausea) Qty: 10 0RF cefdinir 300 mg capsule 300 mg PO Q12H Qty: 14 0RF Primary Care Provider: Care Physician,No Primary Referrals: Care Physician,No Primary [Primary Care Provider] - Print Language: [place] Disposition Disposition: Acute Care [facility]
[2024-09-25] MEDS: MethylPREDNISolone 125 MG/2 ML Vial IV (19:59)
[2024-09-25 20:03] VITALS: BP 149/90; PULSE 84; RESP 16; TEMP 37.2; O2SAT 95
--- NOTE | 2024-09-25 20:03 | HP.PCM.HOS_ITS ---
HPI - General General Date of Admission: 09/25/24 Date of Service: 09/25/24 Chief Complaint: Bloody stools, diarrhea HPI Narrative The patient is a 24 y/o F w/ PMHx: Tobacco use, Chronic cannabis usage, Anxiety and Depression, Ulcerative colitis who presents to the [facility] ED on 09/25/24 with history of persistent intermittent abdominal cramping, diarrhea and hematochezia ongoing for 3 weeks with notable bloated sensation with decreased appetite with no marked nausea or emesis or any fevers recently evaluated by her switch house operator the previous Saturday on 09/23/2024 started on prednisone therapy noted to not be improving therefore attempted initially to increase prednisone but there was no improvement prompting referral to the ED to be cautious. Workup in the ED included T98.2, heart rate 102, BP 142/90, respiratory rate 18, 97% on room air, CBC with WBC 16, hemoglobin 14.3, platelet 566 with increased immature granulocytes with left shift and lymphopenia, CMP unremarkable, negative testing, urinalysis with urine protein 30, occult blood 50, negative nitrite, negative leukocyte esterase, no marked urine bacteria. In the ED patient ministered Solu-Medrol 125 mg IV x 1. ED discussed case with switch house operator Dr. Pace as well as switch house operator Dr. Armstrong with recommendation for admission, initiation of IV Solu-Medrol and Dr. Pace planned evaluation. [facility] Medical History Cannabis abuse Nicotine vapor product user Ulcerative colitis Home Medications ?Medication ?Instructions ?Recorded ?Last Taken ?Type prednisone 20 mg tablet 40 mg PO DAILY steroid 04/11 Unknown History bupropion HCl 150 mg tablet,12 hr 300 mg PO DAILY mood 09/25/24 Unknown History sustained-release Allergy/AdvReac Type Severity Reaction Status Date / Time amoxicillin Allergy Rash Verified 09/25/24 15:49 Family History (Updated 09/26/24 @ 02:[address] Alexandra Jose MD) Mother Anxiety and depression Father No problems noted. Surgical History Hx of colonoscopy Social History (Updated 09/26/24 @ 02:[address] Alexandra Jose MD) household members: significant other Electronic Cigarette Use: with nicotine alcohol intake: current alcohol intake frequency: a few times a month Alcohol type: hard liquor substance use type: marijuana what type of physical activity do you participate in: none seatbelt use: always do you feel safe at home: Yes MARILU MICHEL Narrative Admission Review of Systems: CONSTITUTIONAL: No weight loss, fever, chills, + weakness or fatigue. HEENT: Eyes: No visual loss, blurred vision, double vision or yellow sclerae. Ears, Nose, Throat: No hearing loss, sneezing, congestion, runny nose or sore throat. SKIN: No rash or itching, lesions, wounds. CARDIOVASCULAR: No chest pain, chest pressure or chest discomfort, palpitations, edema, orthopnea, syncopal events. RESPIRATORY: No shortness of breath, cough or sputum, wheezing, hemoptysis. GASTROINTESTINAL: +anorexia/decreased appetite, diarrhea, occasional abdominal cramping, hematochezia, tenesmus, abdominal bloating. No nausea, vomiting melanotic stools. GENITOURINARY: No dysuria, frequency, urgency or retention. NEUROLOGICAL: No headache, dizziness, syncope, paralysis, ataxia, numbness or tingling in the extremities, focal weakness, change in bowel or bladder control, seizure. MUSCULOSKELETAL: No muscle, back pain, joint pain or stiffness. HEMATOLOGIC: + History of anemia, noted active hematochezia. LYMPHATICS: No enlarged nodes. No history of splenectomy. PSYCHIATRIC: + History of anxiety and depression. ENDOCRINOLOGIC: No reports of sweating, cold or heat intolerance. No polyuria or polydipsia. ALLERGIES: + History of rash with amoxicillin. Vital Signs Vital Signs Vital Signs: 09/25/24 15:48 Temperature 98.2 F Temperature Source Oral Pulse Rate 102 H Respiratory Rate 18 Blood Pressure 142/98 H Blood Pressure Mean 112 Pulse Ox 97 Oxygen Delivery Method Room Air Weight Weight: 127 lb 4 oz Body Mass Index (BMI) 24.0 Physical Exam Narrative Physical Examination: General: Awake, alert, oriented x 3 and cooperative, laying in the bed, fatigued, no acute distress. Skin: Normal color, normal turgor, no icterus, no cyanosis. HEENT: AT/NC, EOMI, PERRLA, mildly dry MM, no carotid bruits or JVD noted. Lungs: CTA bilaterally, moderate effort, mild decrease BL bases, no rales, ronchi or wheezing. Heart: Improved, currently regular rate and rhythm; no gallop, rub audible. Abdomen: Soft, NTTP despite current presentation, no marked distention, hyperactive BS, no appreciated HSM. Extremities: No cyanosis, clubbing, or edema. Neurological: Patient awake, alert, oriented as noted, cognitive function intact; pupils equally reactive to light and accommodation, cranial nerves gross normal, moving all 4 extremities, no focal deficits, strength mildly to moderately globally creased Psychiatric: Affect appears flat, fatigued, no acute evidence of depressive or anxiety feelings but does have underlying history. Results Lab / Micro Data 09/25/24 17:55 09/25/24 17:55 Labs: Laboratory Results - last 24 hr 09/25/24 17:55: WBC 16.0 H, RBC 5.05, Hgb 14.3, Hct 42.8, MCV 84.8, MCH 28.3, MCHC 33.4, RDW Std Deviation 44.5 H, RDW Coeff of Waldo 14.6, Plt Count 566 H, MPV 8.9, Immature Gran % (Auto) 4.300 H, Neut % (Auto) 82.0 H, Lymph % (Auto) 2.4 L, [place] % (Auto) 11.1 H, Eos % (Auto) 0.0, Baso % (Auto) 0.2, Absolute Neuts (auto) 13.1 H, Absolute Lymphs (auto) 0.39 L, Nucleated RBC % 0, Differential Comment SEE COMMENTS, Diff Path Review December elieser, Platelet Estimate MOD INC, RBC Morphology NORM C+C, Anisocytosis RARE, Sodium 136, Potassium 3.9, Chloride 97 L , Carbon Dioxide 31.0, Anion Gap 8, BUN 9, Creatinine 0.84, Estim Creat Clear Calc 82.94, Est GFR (MDRD) Af Amer 105, Est GFR (MDRD) Non-Af 87, BUN/Creatinine Ratio 10.7, Glucose 112 H, Calcium 9.4, Total Bilirubin 0.80, AST 9 L, ALT 16, Alkaline Phosphatase 85, Total Protein 7.9, Albumin 3.3, Globulin 4.6 H, A lbumin/Globulin Ratio 0.7 L, Serum , Qual NEGATIVE 09/25/24 17:59: Urine Color Yellow, Urine Clarity Cloudy, Urine pH 7.0, Ur Specific Reading 1.010, Urine Protein 30 H, Urine Glucose (UA) Normal, Urine Ketones Negative, Urine Occult Blood 50 H, Urine Nitrite Negative, Urine Bilirubin Negative, Urine Urobilinogen Normal, Ur Leukocyte Esterase Negative, Urine RBC 0-5 SEEN, Urine WBC 0 SEEN, Ur Squamous Epith Cells 0-5 SEEN, Amorphous Sediment 2+ PHOS, Urine Bacteria 0 SEEN, Urine Mucus 0 SEEN Assessment & Plan Assessment/Plan (1) Exacerbation of ulcerative colitis: PLAN: Plan The patient is a 24 y/o F w/ PMHx: Tobacco use, Chronic cannabis usage, Anxiety and Depression, Ulcerative colitis who presents to the [facility] ED on 09/25/24 with history of persistent intermittent abdominal cramping, diarrhea and hematochezia ongoing for 3 weeks with notable bloated sensation with decreased appetite with no marked nausea or emesis or any fevers recently evaluated by her switch house operator the previous Saturday on 09/23/2024 started on prednisone therapy noted to not be improving therefore attempted initially to increase prednisone but there was no improvement. #1. Suspected acute ulcerative colitis flare: Will admit to medical surgical floor, cytosis likely secondary to recent aggressive steroid outpatient oral regimen unfortunately intractable, will initiate and maintain on IV Solu-Medrol with 20 mg IV every 8 hours but will defer to gastroenterology discretion if preference change, given significant issues with abdominal cramping and bloating will maintain on clear liquids until clinically improving, will maintain on IV PPI, antiemetics and pain regimen as needed. #2. Chronic cannabis usage: Patient admits to history, UDS was not obtained, encouraged cessation. #3. Tobacco Abuse: Encouraged cessation, inpatient consultation per RT, NR if desired. #4. Anxiety and depression: We will continue patient home bupropion regimen. #5. DVT prophylaxis: Encourage ambulation. Defer chemoprophylaxis given low age and bloody stools. Charges/Coding Visit Charges Inpatient E&M: 30912 Init Hosp L2
[2024-09-25 20:46] VITALS: BMI 24.1
[2024-09-25 20:53] LABS: Magnesium 2.5 mg/dL (1.6-2.6); Phosphorus 3.9 mg/dL (2.5-4.9)
[2024-09-25 20:57] VITALS: BP 131/86; PULSE 74; RESP 17; TEMP 37.1; O2SAT 95
[2024-09-25] MEDS: 0.9% Normal Saline (1000mL) 1,000 ML 100 ML IV (21:04)
[2024-09-25] MEDS: Pantoprazole Sodium 40 MG in 0.9% Normal Saline (100mL MB+) 100 ML 330 MG IV (23:55)
[2024-09-26] VITALS (7 sets, daily range): BP systolic 118–146; BP diastolic 84–93; PULSE 66–82; RESP 16–18; TEMP 36.4–37.1; O2SAT 95–98; BMI 24.1
[2024-09-26] MEDS: Ondansetron 4 MG/2 ML Vial IV ×2 (01:43→12:50)
[2024-09-26] MEDS: oxyCODONE 5 MG Tablet PO ×3 (01:48→18:30)
[2024-09-26] MEDS: Acetaminophen 325 MG Tablet 650 MG PO ×3 (01:48→18:30)
[2024-09-26 07:18] LABS: Absolute Lymphocyte Count 0.51 X10^3/uL (0.83-4.51); Absolute Neutrophil Count 9.2 X10^3/uL (2.0-7.7); Basophil# 0.02 X10^3/uL; Basophil% 0.2 % (0-1); Eosinophil# 0.04 X10^3/uL; Eosinophils% 0.3 % (0-5); Hematocrit 37.4 % (37-47); Hemoglobin 12.3 g/dL (12.0-15.0); Lymphocyte # 0.51 X10^3/ul (0.83-4.51); Lymphocyte % 4.4 % (19-41); Mean Corp Hgb Conc 32.9 g/dL (32-36); Mean Corpuscular Hgb 28.1 pg (27.0-32.0); Mean Corpuscular Volume 85.4 fL (81-99); Mean Platelet Vol. 9.1 fl (6.2-12.0); Monocyte% 12.8 % (0-10); NRBC Flagged by Analyzer 0 % (0-5); Neutrophil # 9.16 X10^3/uL (2.7-7.7); Neutrophil % 78.4 % (47-70); POSITIVE DIFFERENTIAL YES; POSITIVE MORPHOLOGY YES; Platelet Count 476 K/mm3 (150-450); RBC Distribution Width CV 14.6 % (11.6-14.6); Red Blood Count 4.38 M/mm3 (4.2-5.4); White Blood Count 11.7 K/mm3 (4.4-11.0)
--- NOTE | 2024-09-26 07:32 | PN.HOSP_ITS ---
Reason for Visit Reason for Visit: Diagnoses Ulcerative colitis, unspecified, without complications (09/25/24) Objective Data Objective Data Vital Signs: Vital Signs Temp Pulse Resp BP Pulse Ox O2 Del Method 97.6 F L 66 16 130/93 H 95 Room Air 09/26/24 05:37 09/26/24 05:37 09/26/24 05:37 09/26/24 05:37 09/26/24 05:37 09/26/24 05:37 Oxygen Delivery Method Room Air Weight: 127 lb 13.89 oz Body Mass Index (BMI) 24.1 Intake & Output: Intake and Output for Last 24 Hours 09/24/24 09/25/24 09/26/24 23:59 23:59 23:59 Intake Total 110 / 110 Balance 110 / 110 Lab / Micro Data 09/26/24 06:40 09/26/24 06:40 Labs: Laboratory Results - last 24 hr 09/25/24 17:55: WBC 16.0 H, RBC 5.05, Hgb 14.3, Hct 42.8, MCV 84.8, MCH 28.3, MCHC 33.4, RDW Std Deviation 44.5 H, RDW Coeff of Waldo 14.6, Plt Count 566 H, MPV 8.9, Immature Gran % (Auto) 4.300 H, Neut % (Auto) 82.0 H, Lymph % (Auto) 2.4 L, [place] % (Auto) 11.1 H, Eos % (Auto) 0.0, Baso % (Auto) 0.2, Absolute Neuts (auto) 13.1 H, Absolute Lymphs (auto) 0.39 L, Nucleated RBC % 0, Differential Comment SEE COMMENTS, Diff Path Review May foll, Platelet Estimate MOD INC, RBC Morphology NORM C+C, Anisocytosis RARE, Sodium 136, Potassium 3.9, Chloride 97 L, Carbon Dioxide 31.0, Anion Gap 8, BUN 9, Creatinine 0.84, Estim Creat Clear Calc 82.94, Est GFR (MDRD) Af Amer 105, Est GFR (MDRD) Non-Af 87, BUN/Creatinine Ratio 10.7, Glucose 112 H, Calcium 9.4, Phosphorus 3.9, Magnesium 2.5, Total Bilirubin 0.80, AST 9 L, ALT 16, Alkaline Phosphatase 85, Total Protein 7.9, Albumin 3.3, Globulin 4.6 H, Albumin/Globulin Ratio 0.7 L, Serum , Qual NEGATIVE 09/25/24 17:59: Urine Color Yellow, Urine Clarity Cloudy, Urine pH 7.0, Ur Specific [place] 1.010, Urine Protein 30 H, Urine Glucose (UA) Normal, Urine Ketones Negative, Urine Occult Blood 50 H, Urine Nitrite Negative, Urine Bilirubin Negative, Urine Urobilinogen Normal, Ur Leukocyte Esterase Negative, Urine RBC 0-5 SEEN, Urine WBC 0 SEEN, Ur Squamous Epith Cells 0-5 SEEN, Amorphous Sediment 2+ PHOS, Urine Bacteria 0 SEEN, Urine Mucus 0 SEEN Physical Exam Narrative Seen and examined She has diagnosed ulcerative colitis about 13 years ago. Her tool and gauge inspector is Dr. Brunson. She states she has pancolitis ulcerative colitis and was on Remicade another biologic but insurance not covering. She has been taking prednisone 30 mg increased to 40 mg for about 1 month. Still having diarrhea and abdominal pain and bright red blood Physical exam General: Alert, Oriented x3, Cooperative HEENT: Atraumatic, PERRLA, EOMI, Normocephalic Oral: No Gingival or Mucosal Lesions/ Ulcerations Neck: Supple, No JVD, Negative Carotid Bruits Chest wall/Lungs: Air entry diminished in bilateral lung bases. No crepitation/rhonchi Cardiovascular: Regular rate, Regular Rhythm, Normal S1, Normal S2, No M/G/R Abdomen: Bowel Sounds hyper. Soft. No tenderness guarding or rigidity. No palpable mass : No dysuria. No renal angle tenderness. No suprapubic tenderness. Extremities: No edema, Capillary Refill Less than 3 Seconds Skin: No rashes, No breakdown Musculoskeletal: No Tenderness to Palpation of Joints or Extremities Neurological: Cranial nerves II-XII grossly intact, DTR 2+/4. No acute focal neurological deficit. Psych/Mental Status: Normal Affect, Appropriate. Assessment & Plan Assessment/Plan (1) Exacerbation of ulcerative colitis: PLAN: Plan The patient is a 24 y/o F admitted with persistent abdominal cramping along with diarrhea, hematochezia for last 3 weeks with bloating sensation, decreased appetite. No fever nausea or vomiting. Patient evaluated by tool and gauge inspector on 09/23 and is started on prednisone but patient felt no improvement #1. Suspected acute ulcerative colitis flare: Patient is being admitted on medical floor. On IV Solu-Medrol 20 mg Q8 hourly. Started on mesalamine. GI is consulted. Supportive treatment #2. Chronic cannabis usage and vaping: Patient was doing vaping and cannabis use. She stated that she quit it #3. Anxiety and depression: We will continue patient home bupropion regimen. DVT prophylaxis: Encourage ambulation. IBD is a moderate risk for DVT but since the patient is actively bleeding therefore bilateral SCDs Charges/Coding Visit Charges Inpatient E&M: 29647 Subs Hosp L2
[2024-09-26 08:20] LABS: ALB/GLOB Ratio 0.7 RATIO (0.9-2.4); AST(SGOT) 9 U/L (15-37); Alanine Aminotransfer ALT/SGPT 13 U/L (13-56); Albumin, Serum 2.7 g/dL (3.2-5.0); Alkaline Phosphatase 68 U/L (45-117); Anion Gap 7 (5-15); BUN 8 mg/dL (7-18); BUN/Creat Ratio 11.3 RATIO (10-20); Chloride 103 mmol/L (98-107); Creatinine, Serum 0.71 mg/dL (0.55-1.02); EST Glomerular Filtration Rate 106 mL/min (>60); Est Glom Filt Rate - Afr Amer 128 mL/min (>60); Estimated Creatinine Clearance 98.34 ml/min; Globulin 3.9 g/dL (2.2-4.2); Glucose 113 mg/dL (74-106); Potassium 3.6 mmol/L (3.5-5.1); Protein, Total 6.6 g/dL (6.4-8.2); Sodium Level 136 mmol/L (136-145)
[2024-09-26 08:48] LABS: Differential Indicated SCAN CRITERIA MET
[2024-09-26 08:50] LABS: Platelet Estimate SLT INC (ADEQ)
[2024-09-26] MEDS: KCL 40mEq in 0.9% NS 40 MEQ/1,000 ML IV.SOLN 125 MEQ IV ×2 (09:24→17:31)
[2024-09-26] MEDS: Pantoprazole Sodium 40 MG in 0.9% Normal Saline (100mL MB+) 100 ML 330 MG IV (09:25)
[2024-09-26] MEDS: buPROPion (SR) 150 MG Tablet.SA 300 MG PO (11:35)
--- NOTE | 2024-09-26 12:26 | CASEMGMT ---
TAVO CHATTERJEE Assessment: Face to Face with pt for initial transition planning/care coordination assessment. RN SHENA introduced self and role at [facility], pt voices understanding and consents to assessment. Pt is A&O x4 and answers all questions appropriately at this time. Pt sitting up in bed in no distress, significant other sitting at bedside. Care providers, pharmacy, and demographics verified/updated. Strata: 1 Admitting Dx: UC flare PCP: No PCP, list of local providers given Specialists: Denies Preferred Pharmacy: [facility] Insurance: [employer] Prescription Benefit: yes LNOK: Significant other, Aidan; Mother, Evangelist Living Arrangements: Pt lives with sig. other in an apartment with no steps to enter ADLs: I at baseline. Transportation: Pt drives self and denies concerns with transportation. DME: None HHC/SNF: Denies Hx of. Pt states no concerns with going home at time of dc. Pt states no further concerns/needs. CM to follow. Advised pt to ask CM if any further question/concerns/needs arise, voices understanding. Pt Goal: Home Plan: Home with support from significant other. Kade VO CM
[2024-09-26] MEDS: 0.9% Saline Lock 10 ML Syringe IV ×3 (12:49→22:03)
[2024-09-26] MEDS: MESALAMINE 400 MG CAPSULE.DR PO ×2 (15:54→22:01)
--- NOTE | 2024-09-26 21:35 | CT_ITS ---
PROCEDURE: CT abdomen pelvis with IV contrast REASON FOR EXAM: Pain, ulcerative colitis TECHNIQUE: Multiple contiguous axial images of the abdomen and pelvis were obtained after the administration of intravenous contrast. Two-dimensional coronal and sagittal reformatted images were reconstructed. Low-dose imaging technique was utilized. COMPARISON: 09/03/2024 FINDINGS: Lung bases are clear., spleen, pancreas and adrenal glands are intact. Gallbladder is satisfactory. No significant biliary ductal dilation. Kidneys enhance symmetrically. No suspicious renal mass, calculi or hydronephrosis. Urinary bladder is within normal limits. Uterus is present. Small left adnexal cysts. Mild/moderate diffuse wall thickening and mucosal hyperenhancement from the mid transverse colon through the rectum consistent with colitis. Associated prominence of the supplying colonic vasculature. Proximal colon is intact. No bowel obstruction. Mild diffuse dilation of the appendix measuring up to 7 mm in diameter with mucosal hyperenhancement, but without significant surrounding inflammatory changes. No pelvic free fluid. No free air. No abdominal aortic aneurysm or suspicious adenopathy. Superficial soft tissues are within normal limits. No acute osseous abnormality. CT/Abdomen/Pelvis W IV Cont ONLY IMPRESSION: 1. Acute colitis from the level of the mid transverse colon through the rectum as above. 2. Mild diffuse dilation of the appendix with mucosal hyperenhancement. No sig nificant surrounding inflammatory changes. Acute appendicitis not excluded. Please correlate. One or more dose reduction techniques were used (e.g., Automated exposure contr ol, adjustment of the mA and/or kV according to patient size, use of iterative reconstruction technique). Reading Location: [facility]
--- NOTE | 2024-09-26 21:38 | EX.PCM.CON.G ---
HPI Consult Data Date of Consult: 09/26/24 HPI Narrative Reason for Consultation: Ulcerative colitis HPI Narrative: ANTHONY HUNTER, is a 24 F who presents multiple episodes of lower GI bleeding. She has a tobacco use, Chronic cannabis usage, Anxiety and Depression, Ulcerative colitis who presents to the [facility] ED on 09/25/24 with history of persistent intermittent abdominal cramping, diarrhea and hematochezia. It has been going on for 3 weeks with notable bloated sensation with decreased appetite with no marked nausea or emesis or any fevers recently evaluated by her math and sciences department chair the previous Saturday on 09/23/2024 started on prednisone 40 mg a day with no improvement. Therefore attempted initially to increase prednisone but there was no improvement prompting referral to the ED to be cautious. She has had ulcerative colitis since age 10. She has been on azathioprine in the past along with Entyvio and Remicade. She was doing very well with Remicade infusion every 6 weeks but lost her insurance because she turned 24. Since then she has been on sample medications from her math and sciences department chair and prednisone. Workup in the ED included T98.2, heart rate 102, BP 142/90, respiratory rate 18, 97% on room air, CBC with WBC 16, hemoglobin 14.3, platelet 566 with increased immature granulocytes with left shift and lymphopenia, CMP unremarkable, negative testing, urinalysis with urine protein 30, occult blood 50, negative nitrite, negative leukocyte esterase, no marked urine bacteria. In the ED patient ministered Solu-Medrol 125 mg IV x 1. FOR[facility]LY [facility], [facility] Medical History Cannabis abuse Nicotine vapor product user Ulcerative colitis Home Medications ?Medication ?Instructions ?Recorded ?Last Taken ?Type prednisone 20 mg tablet 40 mg PO DAILY steroid 04/11/21 Unknown History bupropion HCl 150 mg tablet,12 hr 300 mg PO DAILY mood 09/25/24 Unknown History sustained-release Allergy/AdvReac Type Severity Reaction Status Date / Time amoxicillin Allergy Rash Verified 09/25/24 15:49 Family History Mother Anxiety and depression Father No problems noted. Surgical History Hx of colonoscopy Social History household members: significant other Electronic Cigarette Use: with nicotine alcohol intake: current alcohol intake frequency: a few times a month Alcohol type: hard liquor substance use type: marijuana what type of physical activity do you participate in: none seatbelt use: always do you feel safe at home: Yes ROS Constitutional Constitutional: Denies fatigue, fever(s), poor appetite, weight gain or weight loss Gastrointestinal Gastrointestinal: Denies belching, bloating, change in bowel habits, change in stool character, chewing difficulty, coffee ground emesis, constipation, cramping, diarrhea, dyspepsia, dysphagia, early satiety, excessive flatus, fecal incontinence, heartburn, hematemesis, hematochezia, hemorrhoids, loose stools, melena, nausea, odynophagia, rectal bleeding, tenesmus, vomiting or weight changes Physical Exam Const alert, oriented x3, no apparent distress and healthy appearing General Appearance: cooperative GI normal to inspection, nondistended, normoactive bowel sounds, soft to palpation, non-tender and non-distended Percussion: normal to percussion Rectal Exam: deferred Lab / Micro Data 09/26/24 06:40 09/26/24 06:40 Labs: Laboratory Results - last 24 hr 09/26/24 06:40: WBC 11.7 H, RBC 4.38, Hgb 12.3, Hct 37.4, MCV 85.4, MCH 28.1, MCHC 32.9, RDW Std Deviation 45.0 H, RDW Coeff of Waldo 14.6, Plt Count 476 H, MPV 9.1, Immature Gran % (Auto) 3.900 H, Neut % (Auto) 78.4 H, Lymph % (Auto) 4.4 L, Bulloch % (Auto) 12.8 H, Eos % (Auto) 0.3, Baso % (Auto) 0.2, Absolute Neuts (auto) 9.2 H, Absolute Lymphs (auto) 0.51 L, Nucleated RBC % 0, Platelet Estimate SLT INC, Sodium 136, Potassium 3.6, Chloride 103, Carbon Dioxide 26.0, Anion Gap 7, BUN 8, Creatinine 0.71, Estim Creat Clear Calc 98.34, Est GFR (MDRD) Af Amer 128, Est GFR (MDRD) Non-Af 106, BUN/Creatinine Ratio 11.3, Glucose 113 H, Calcium 9.0, Total Bilirubin 0.80, AST 9 L, ALT 13, Alkaline Phosphatase 68, Total Protein 6.6, Albumin 2.7 L, Globulin 3.9, Albumin/Globulin Ratio 0.7 L Micro: Microbiology 09/25/24 09:35 Stool Enteric Bacteriology - Final 09/26/24 09:35 Stool Clostridioides difficile (PCR) - Final Assessment & Plan Assessment/Plan (1) Exacerbation of ulcerative colitis: PLAN: Plan The patient is a 24 y/o F w/ PMHx: Tobacco use, Chronic cannabis usage, Anxiety and Depression, Ulcerative colitis who presents to the [facility] ED on 09/25/24 with history of persistent intermittent abdominal cramping, diarrhea and hematochezia Acute ulcerative colitis flare: I will increase her Solu-Medrol to 60 mg every 6 now that her stools are negative for infection. I will also check CMV antibodies and titers. We will check an ESR, CRP and lactic acid along we will get a CT scan of the abdomen pelvis to look for signs of pancolitis. She would likely need flexible sigmoidoscopy or colonoscopy on Saturday. She will be checking with her insurance on Saturday to see if we can give Remicade infusion. Charges/Coding Visit Charges Inpatient E&M: 69915 Init Hosp L3
[2024-09-26] MEDS: MethylPREDNISolone 125 MG/2 ML Vial 60 MG IV (22:01)
[2024-09-26 23:48] LABS: Erythrocyte Sedimentation Rate 27 mm/hr (0-30)
[2024-09-27] VITALS (7 sets, daily range): BP systolic 131–150; BP diastolic 86–114; PULSE 62–82; RESP 13–16; TEMP 36.6–36.8; O2SAT 95–100; BMI 24.3
[2024-09-27] MEDS: MELATONIN 3 MG TABLET PO (00:07)
[2024-09-27] MEDS: 0.9% Saline Lock 10 ML Syringe IV ×10 (00:07→23:42)
[2024-09-27] MEDS: Acetaminophen 325 MG Tablet 650 MG PO ×3 (06:06→23:41)
[2024-09-27] MEDS: MethylPREDNISolone 125 MG/2 ML Vial 60 MG IV ×4 (06:07→23:31)
[2024-09-27] MEDS: MESALAMINE 400 MG CAPSULE.DR PO ×3 (06:07→21:00)
[2024-09-27] MEDS: oxyCODONE 5 MG Tablet PO ×3 (06:22→23:41)
[2024-09-27 07:18] LABS: Absolute Lymphocyte Count 0.73 X10^3/uL (0.83-4.51); Absolute Neutrophil Count 8.4 X10^3/uL (2.0-7.7); Basophil% 0.9 % (0-1); Eosinophil# 0.01 X10^3/uL; Eosinophils% 0.1 % (0-5); Hematocrit 38.4 % (37-47); Hemoglobin 12.3 g/dL (12.0-15.0); Lymphocyte # 0.73 X10^3/ul (0.83-4.51); Lymphocyte % 6.2 % (19-41); Mean Corpuscular Hgb 27.5 pg (27.0-32.0); Mean Corpuscular Volume 85.7 fL (81-99); Mean Platelet Vol. 9.1 fl (6.2-12.0); Monocyte# 2.03 X10^3/uL; Monocyte% 17.3 % (0-10); NRBC Flagged by Analyzer 0 % (0-5); Neutrophil # 8.43 X10^3/uL (2.7-7.7); Neutrophil % 71.8 % (47-70); POSITIVE DIFFERENTIAL YES; Platelet Count 508 K/mm3 (150-450); RBC Distribution Width CV 14.7 % (11.6-14.6); RBC Distribution Width SD 45.3 fl (35.1-43.9); Red Blood Count 4.48 M/mm3 (4.2-5.4); White Blood Count 11.7 K/mm3 (4.4-11.0)
[2024-09-27 07:25] LABS: Differential Indicated SCAN CRITERIA MET
[2024-09-27 07:45] LABS: Anion Gap 7 (5-15); BUN 6 mg/dL (7-18); BUN/Creat Ratio 9.9 RATIO (10-20); Calcium,Total 9.2 mg/dL (8.5-10.1); Chloride 103 mmol/L (98-107); EST Glomerular Filtration Rate 127 mL/min (>60); Est Glom Filt Rate - Afr Amer 153 mL/min (>60); Estimated Creatinine Clearance 116.73 ml/min; Glucose 98 mg/dL (74-106); Potassium 4.3 mmol/L (3.5-5.1); Sodium Level 135 mmol/L (136-145)
[2024-09-27] MEDS: Ondansetron 4 MG/2 ML Vial IV ×2 (07:49→16:28)
[2024-09-27] MEDS: Pantoprazole Sodium 40 MG Tablet PO (08:39)
[2024-09-27] MEDS: buPROPion (SR) 150 MG Tablet.SA 300 MG PO (08:39)
[2024-09-27 09:25] LABS: Platelet Estimate SLT INC (ADEQ); Platelet Morphology GIAN; Polychromasia 1+
--- NOTE | 2024-09-27 12:53 | PCM.PN.HOSP ---
Reason for Visit Reason for Visit: Diagnoses Ulcerative colitis, unspecified, without complications (09/25/24) Objective Data Objective Data Vital Signs: Vital Signs Temp Pulse Resp BP Pulse Ox O2 Del Method 97.9 F 62 14 141/98 H 95 Room Air 09/27/24 08:00 09/27/24 08:00 09/27/24 08:00 09/27/24 08:00 09/27/24 09:36 09/27/24 09:36 Oxygen Delivery Method Room Air Weight: 128 lb 11.999 oz Body Mass Index (BMI) 24.3 Intake & Output: Intake and Output for Last 24 Hours 09/25/24 09/26/24 09/27/24 23:59 23:59 23:59 Intake Total 2570 / 2570 1400 / 1400 Balance 2570 / 2570 1400 / 1400 Lab / Micro Data 09/27/24 06:55 09/27/24 06:55 Labs: Laboratory Results - last 24 hr 09/26/24 22:13: Lactic Acid 1.0 09/26/24 23:18: ESR 27, C-React Prot Ext Range 27.00 H 09/27/24 06:55: WBC 11.7 H, RBC 4.48, Hgb 12.3, Hct 38.4, MCV 85.7, MCH 27.5, MCHC 32.0, RDW Std Deviation 45.3 H, RDW Coeff of Waldo 14.7 H, Plt Count 508 H, MPV 9.1, Immature Gran % (Auto) 3.700 H, Neut % (Auto) 71.8 H, Lymph % (Auto) 6.2 L, Mcculloch % (Auto) 17.3 H, Eos % (Auto) 0.1, Baso % (Auto) 0.9, Absolute Neuts (auto) 8.4 H, Absolute Lymphs (auto) 0.73 L, Nucleated RBC % 0, Platelet Estimate SLT INC, Plt Morphology Comment JHOANA, Polychromasia 1+, Sodium 135 L, Potassium 4.3, Chloride 103, Carbon Dioxide 25.0, Anion Gap 7, BUN 6 L, Creatinine 0.60, Estim Creat Clear Calc 116.73, Est GFR (MDRD) Af Amer 153, Est GFR (MDRD) Non-Af 127, BUN/Creatinine Ratio 9.9 L, Glucose 98, Calcium 9.2 Micro: Microbiology 09/25/24 09:35 Stool Enteric Bacteriology - Final 09/26/24 09:35 Stool Clostridioides difficile (PCR) - Final Radiography Diagnostic Testing: Radiology Impression Abdomen/Pelvis CT 09/26/24 21:35 IMPRESSION: 1. Acute colitis from the level of the mid transverse colon through the rectum as above. 2. Mild diffuse dilation of the appendix with mucosal hyperenhancement. No significant surrounding inflammatory changes. Acute appendicitis not excluded. Please correlate. One or more dose reduction techniques were used (e.g., Automated exposure control, adjustment of the mA and/or kV according to patient size, use of iterative reconstruction technique). Reading Location: [facility] Physical Exam Narrative Seen and examined Diarrhea frequency has decreased. Today she had 2 since morning. Fecal volume is also decreased. She still has intermittent cramps. CT abdomen reviewed. She has diagnosed ulcerative colitis about 13 years ago. Her link trainer mechanic is Dr. Brunson. She states she has pancolitis ulcerative colitis and was on Remicade another biologic but insurance not covering. She has been taking prednisone 30 mg increased to 40 mg for about 1 month. Still having diarrhea and abdominal pain and bright red blood Physical exam General: Alert, Oriented x3, Cooperative HEENT: Atraumatic, PERRLA, EOMI, Normocephalic Oral: No Gingival or Mucosal Lesions/ Ulcerations Neck: Supple, No JVD, Negative Carotid Bruits Chest wall/Lungs: Air entry diminished in bilateral lung bases. No crepitation/rhonchi Cardiovascular: Regular rate, Regular Rhythm, Normal S1, Normal S2, No M/G/R Abdomen: Bowel Sounds normal soft. No tenderness guarding or rigidity. No palpable mass : No dysuria. No renal angle tenderness. No suprapubic tenderness. Extremities: No edema, Capillary Refill Less than 3 Seconds Skin: No rashes, No breakdown Musculoskeletal: No Tenderness to Palpation of Joints or Extremities Neurological: Cranial nerves II-XII grossly intact, DTR 2+/4. No acute focal neurological deficit. Psych/Mental Status: Normal Affect, Appropriate. Assessment & Plan Assessment/Plan (1) Exacerbation of ulcerative colitis: PLAN: Plan The patient is a 24 y/o F admitted with persistent abdominal cramping along with diarrhea, hematochezia for last 3 weeks with bloating sensation, decreased appetite. No fever nausea or vomiting. Patient evaluated by link trainer mechanic on 09/23 and is started on prednisone but patient felt no improvement #1. Suspected acute ulcerative colitis flare: Patient is being admitted on medical floor. On IV Solu-Medrol 20 mg Q8 hourly. Started on mesalamine. GI is consulted. Supportive treatment 09/27: CT abdomen with IV contrast initially reviewed. Shows acute colitis from the mid transverse to rectum, wall thickening. Started on IV Flagyl. Continue Solu-Medrol. Enteric pathogen panel and C. difficile are negative. #2. Chronic cannabis usage and vaping: Patient was doing vaping and cannabis use. She stated that she quit it #3. Anxiety and depression: We will continue patient home bupropion regimen. DVT prophylaxis: Encourage ambulation. IBD is a moderate risk for DVT but since the patient is actively bleeding therefore bilateral SCDs Microbiology Past 72 Hours 09/25/24 09:35 Stool Enteric Bacteriology - Final 09/26/24 09:35 Stool Clostridioides difficile (PCR) - Final Laboratory Results 09/26/24 22:13: Lactic Acid 1.0 09/26/24 23:18: ESR 27, C-React Prot Ext Range 27.00 H 09/27/24 06:55: WBC 11.7 H, RBC 4.48, Hgb 12.3, Hct 38.4, MCV 85.7, MCH 27.5, MCHC 32.0, RDW Std Deviation 45.3 H, RDW Coeff of Waldo 14.7 H, Plt Count 508 H, MPV 9.1, Immature Gran % (Auto) 3.700 H, Neut % (Auto) 71.8 H, Lymph % (Auto) 6.2 L, Mcculloch % (Auto) 17.3 H, Eos % (Auto) 0.1, Baso % (Auto) 0.9, Absolute Neuts (auto) 8.4 H, Absolute Lymphs (auto) 0.73 L, Nucleated RBC % 0, Platelet Estimate SLT INC, Plt Morphology Comment JHOANA, Polychromasia 1+, Sodium 135 L, Potassium 4.3, Chloride 103, Carbon Dioxide 25.0, Anion Gap 7, BUN 6 L, Creatinine 0.60, Estim Creat Clear Calc 116.73, Est GFR (MDRD) Af Amer 153, Est GFR (MDRD) Non-Af 127, BUN/Creatinine Ratio 9.9 L, Glucose 98, Calcium 9.2 Clinical Impression(s) from Imaging Studies Abdomen/Pelvis CT 09/26/24 21:35 IMPRESSION: 1. Acute colitis from the level of the mid transverse colon through the rectum as above. 2. Mild diffuse dilation of the appendix with mucosal hyperenhancement. No significant surrounding inflammatory changes. Acute appendicitis not excluded. Please correlate. One or more dose reduction techniques were used (e.g., Automated exposure control, adjustment of the mA and/or kV according to patient size, use of iterative reconstruction technique). Reading Location: [facility] Charges/Coding Visit Charges Inpatient E&M: 43941 Subs Hosp L2
[2024-09-27] MEDS: metroNIDAZOLE 500 MG/100 ML BAG 100 MG IV ×2 (14:19→21:01)
[2024-09-27] MEDS: 0.9% Normal Saline (100mL Bag) 100 ML 15 ML IV (14:23)
[2024-09-27] MEDS: Morphine 2 MG/ML Syringe IV (18:33)
[2024-09-27] MEDS: proCHLORPERazine 10 MG/2 ML Vial 5 MG IV (23:41)
[2024-09-28] VITALS (11 sets, daily range): BP systolic 115–142; BP diastolic 81–104; PULSE 88–110; RESP 16–18; TEMP 36.5–37.1; O2SAT 95–99; BMI 24.0
[2024-09-28] MEDS: 0.9% Saline Lock 10 ML Syringe IV ×4 (05:38→17:15)
[2024-09-28] MEDS: MethylPREDNISolone 125 MG/2 ML Vial 60 MG IV ×3 (05:38→17:15)
[2024-09-28] MEDS: metroNIDAZOLE 500 MG/100 ML BAG 100 MG IV ×3 (05:38→21:39)
[2024-09-28] MEDS: MESALAMINE 400 MG CAPSULE.DR PO ×3 (05:38→21:38)
[2024-09-28] MEDS: Acetaminophen 325 MG Tablet 650 MG PO ×3 (05:50→21:38)
[2024-09-28] MEDS: oxyCODONE 5 MG Tablet PO ×3 (05:50→21:39)
[2024-09-28 08:41] LABS: Absolute Lymphocyte Count 0.83 X10^3/uL (0.83-4.51); Absolute Neutrophil Count 16.6 X10^3/uL (2.0-7.7); Basophil# 0.03 X10^3/uL; Basophil% 0.1 % (0-1); Eosinophil# 0.01 X10^3/uL; Hematocrit 33.8 % (37-47); Lymphocyte # 0.83 X10^3/ul (0.83-4.51); Lymphocyte % 4.1 % (19-41); Mean Corp Hgb Conc 32.5 g/dL (32-36); Mean Corpuscular Hgb 27.8 pg (27.0-32.0); Mean Corpuscular Volume 85.6 fL (81-99); Mean Platelet Vol. 9.1 fl (6.2-12.0); Monocyte# 1.81 X10^3/uL; NRBC Flagged by Analyzer 0 % (0-5); Neutrophil # 16.57 X10^3/uL (2.7-7.7); Neutrophil % 82.5 % (47-70); POSITIVE DIFFERENTIAL YES; POSITIVE MORPHOLOGY YES; Platelet Count 552 K/mm3 (150-450); RBC Distribution Width CV 14.7 % (11.6-14.6); RBC Distribution Width SD 45.5 fl (35.1-43.9); Red Blood Count 3.95 M/mm3 (4.2-5.4); White Blood Count 20.1 K/mm3 (4.4-11.0)
[2024-09-28 08:55] LABS: Anion Gap 8 (5-15); BUN 12 mg/dL (7-18); BUN/Creat Ratio 16.4 RATIO (10-20); Calcium,Total 8.7 mg/dL (8.5-10.1); Chloride 100 mmol/L (98-107); Creatinine, Serum 0.73 mg/dL (0.55-1.02); EST Glomerular Filtration Rate 101 mL/min (>60); Est Glom Filt Rate - Afr Amer 123 mL/min (>60); Estimated Creatinine Clearance 95.43 ml/min; Glucose 107 mg/dL (74-106); Potassium 3.9 mmol/L (3.5-5.1); Sodium Level 137 mmol/L (136-145)
[2024-09-28 09:11] LABS: Differential Comment S; Differential Indicated SCAN CRITERIA MET
[2024-09-28] MEDS: Ondansetron 4 MG/2 ML Vial IV (09:38)
[2024-09-28] MEDS: Pantoprazole Sodium 40 MG Tablet PO (09:38)
--- NOTE | 2024-09-28 11:15 | COLBX_PTH ---
PATIENT: ANTHONY HUNTER LOC: MS3 U#:[id number] AGE/SX: 24/F ROOM: WI315 RE09/25/[address]: Dr. Wyatt Simon DO : 2000 BED: 1 DIS: 09/29/2024 SPEC #: [id number] RECD: 09/28/24 14:47 STATUS: MELANIA REJackie #: [id number] TERELL: 09/28/24 11:[address]: Mike Pace DEPT: SURGICAL PATHOLOGY RECD BY: Chloe Diallo ENTERED: 09/29/24 07:37 SP TYPE: COLON BX OTHR DR: MD Dr. Wyatt Shaffer DO Dr. Prakash Chand, MD No Primary Care Phys Tissues: COLON BIOPSY Procedures: Surgery Specimen Level IV Comments: @ Ordering doctor for SUIV edited from to @ telly CHURCH at 09/29/24 0911 @ Submitting doctor edited from to @ by LYNNETTE at 09/29/24 0911 HEADER OPERATION: Colonoscopy, biopsy PRE-OP DIAGNOSIS: Exacerbation of ulcerative colitis TISSUE SUBMITTED: Random colon biopsy MICROSCOPIC DIAGNOSIS Colon, random biopsy: Moderate to marked chronic active colitis. Negative for dysplasia. See microscopic description and comment. 09/30/2024 COMMENT Correlation with clinical, endoscopic findings and appropriate follow up are necessary. MICROSCOPIC DESCRIPTION Slides are reviewed. This specimen shows fragments of colonic mucosa with extensive ulceration, acute and chronic inflammation, granulation tissue reaction, glandular distortion, cryptitis and crypt abscesses. Granulomas are not seen. No evidence of dysplasia. GROSS DESCRIPTION Received in fixative is one container labeled with the patient's name and designated Random colon biopsy. The specimen consists of multiple irregular fragments of light altamirano soft tissue that in aggregate measure 1.6 x 0.3 x 0.2 cm. The specimen is totally submitted in one cassette. 09/29/2024 TC:2 CPT:78747
--- NOTE | 2024-09-28 11:19 | PCM.PRE.AN2 ---
ASA Classification* ASA Classification ASA Classification: 3 Assessment & Plan Anesthesia* Anesthesia Assessment Anesthesia Assessment: Discussed sedation and/or anesthesia options, risks, benefits, and alternatives with patient/parents/legal guardian/POA. Questions invited. The patient/parents/legal guardian/POA seems to understand and agrees to proceed with anesthesia plan. Reviewed the physical assessment, medical history, allergy history and patient home medications list prior to surgery/procedure/anesthetic and documented any changes. Performed airway and anesthesia risk assessments. Anesthesia Type Anesthesia Type: General and MAC (discussed will attempt MAC, however low threshold to convert to GA given nausea and marijuana use) History Source History Obtained from:: Patient and Chart Anesthesia Focused Assessment* Temperature: 97.9 F Pulse Rate: 100 Blood Pressure: 136/104 Respiratory Rate: 18 Pulse Ox: 98 Oxygen Delivery Method: Room Air Airway Assessment Mouth opens: >3 cm Mallampati Score: I Teeth Condition: Intact Neck Range of motion (ROM): Full ROM Focused Labs Anesthesia Preop lab: CBC WBC 20.1 K/mm3 (4.4-11.0) H 09/28/24 08:08 09/28/24 RBC 3.95 M/mm3 (4.2-5.4) L 09/28/24 08:08 09/28/24 Hgb 11.0 g/dL (12.0-15.0) L 09/28/24 08:08 09/28/24 Hct 33.8 % (37-47) L 09/28/24 08:08 09/28/24 Plt Count 552 K/mm3 (150-450) H 09/28/24 08:08 09/28/24 CHEMISTRY Potassium 3.9 mmol/L (3.5-5.1) 09/28/24 08:08 09/28/24 Sodium 137 mmol/L (136-145) 09/28/24 08:08 09/28/24 Magnesium 2.5 mg/dL (1.6-2.6) 09/25/24 17:55 09/25/24 Phosphorus 3.9 mg/dL (2.5-4.9) 09/25/24 17:55 09/25/24 BUN 12 mg/dL (7-18) 09/28/24 08:08 09/28/24 Creatinine 0.73 mg/dL (0.55-1.02) 09/28/24 08:08 09/28/24 Glucose 107 mg/dL (74-106) H 09/28/24 08:08 09/28/24 COAG Urine Test Negative Negative 10/11/22 02:06 10/11/22 Pre-Assessment Diagnosis/Proposed Procedure Planned Operative Procedure(s): Flexible Sigmoidoscopy Anesthesia History Anesthesia History - coagulating bath mixer: Anesthesia History - coagulating bath mixer Hx Hospitalization No 04/04/21 15:44 Any Problems With Anesthesia No 09/28/24 08:31 Cholinesterase deficiency No 09/28/24 08:31 You/Your Family Experience No 09/28/24 08:31 fever (hyperthermia) with Relationship Recent Exposure to Contagious No 09/28/24 08:31 Disease Does patient have nerve No 09/28/24 08:31 stimulator Patient instructed to have device shut off --Does patient have Pacemaker No 09/28/24 09:50 or ICD? When Was Last Pacemaker Check QUESTION #4 FULL TEXT: You/Your Family Experience fever (hyperthermia) with Anesthesia Last Oral Intake Last Oral intake: Last Oral Intake NPO since Meds taken in AM with sips of water? Meds patient instructed to take am of surgery Any additional information?: Yes NPO since: 11:20 PONV PONV - coagulating bath mixer: PONV - coagulating bath mixer Female HX of Motion Sickness HX of N/V After Surgery Non-Smoker Duration of Surgery greater than 60 minutes Number of Risk Factors PONV Score Any additional information?: Yes Female: Yes HX of Motion Sickness: No HX of N/V After Surgery: No Non-Smoker: Yes Duration of Surgery greater than 60 minutes: No Number of Risk Factors: 2 PONV Score: Moderate Risk Height & Weight Height & Weight: Anesthesia: Height & Weight Height 5 ft 1 in 09/28/24 09:50 Weight: 57.7 kg 09/28/24 09:50 Body Mass Index (BMI) 24.0 09/28/24 09:50 Respiratory Assessment Respiratory Assessment - coagulating bath mixer: Respiratory Tract Infection Hx - coagulating bath mixer Hx Respiratory Tract Infection Yes 09/28/24 08:31 Any additional information?: Yes Hx Respiratory Tract Infection: Yes (resolved, over 2 weeks ago. no symptoms currently) STOP Sleep Apnea STOP Sleep Apnea - coagulating bath mixer: STOP Sleep Apnea - coagulating bath mixer Hx Hypertension No 09/25/24 20:49 Hx Sleep Apnea No 09/25/24 20:49 CPAP BIPAP Do you snore loudly (louder No 09/25/24 20:49 than talking or can be heard Do you often feel tired/ No 09/25/24 20:49 fatigued/ sleepy during daytime? Has anyone observed you stop No 09/25/24 20:49 breathing during sleep? STOP Results Negative 09/25/24 20:49 QUESTION #5 FULL TEXT : Do you snore loudly (louder than talking or can be heard through closed doors)? 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 Specify any problems Hx of Preganancy in last 3 No 09/25/24 20:49 Months Nurse Filling Out Transfusion DREDICK 09/25/24 20:49 & Questions: Date: 09/25/24 09/25/24 20:49 Time: 20:49 09/25/24 20:49 Patient unable to answer at this time (ie. confused, unrespo /Reproduction History /Reproductive History - coagulating bath mixer: /Reproductive Hx- coagulating bath mixer Hx Now No 09/28/24 08:31 Gestational Age (in weeks): EDC: Hx Hx Para Hx Section SAB No 09/28/24 08:31 Active Medications Active Medications: Current Medications Generic Name Dose Route Start Last Admin Trade Name Freq PRN Reason Stop Dose Admin Acetaminophen 650 mg 09/25/24 20:45 09/28/24 05:50 Acetaminophen 325 Mg Tablet PO 650 mg Q4H PRN PRN Administration Fever, pain 1-10/10 Bupropion HCl 300 mg 02/22/25 10:00 09/28/24 09:41 Bupropion (Sr) 150 Mg Tablet.Sa PO Not Given DAILY SULMA Guaifenesin 20 ml 09/25/24 20:45 Guaifenesin 10 Ml Udc (200mg/10ml) PO Q4H PRN PRN COUGH Hydralazine HCl 10 mg 09/25/24 20:45 Hydralazine 20 Mg/Ml Vial IV Q4H PRN PRN SBP > 160 Protocol Sodium Chloride 100 mls @ 15 mls/hr 09/25/24 20:47 09/28/24 05:40 IV 15 mls/hr .Q6H40M PRN Infusion Saline Flush Sodium Chloride 100 mls @ 15 mls/hr 09/25/24 20:47 IV .Q6H40M PRN Additional IVPB Infusion Metronidazole 500 mg in 100 mls @ 100 mls/hr 09/27/24 13:00 09/28/24 06:38 Flagyl IV Infused Q8 SULMA Infusion Melatonin 3 mg 09/25/24 20:45 09/27/24 00:07 Melatonin 3 Mg Tablet PO 3 mg QHS PRN PRN Administration INSOMNIA Mesalamine 400 mg 09/26/24 14:35 09/28/24 05:38 Mesalamine 400 Mg Capsule.Dr PO 400 mg TID SULMA Administration Methylprednisolone 60 mg 09/26/24 22:00 09/28/24 05:38 Methylprednisolone 125 Mg/2 Ml Vial IV 60 mg Q6 SULMA Administration Morphine Sulfate 2 mg 09/25/24 20:45 09/27/24 18:33 Morphine 2 Mg/Ml Syringe IV 2 mg Q3H PRN PRN Administration Pain Score 6-10 Ondansetron HCl 4 mg 09/25/24 20:45 09/28/24 09:38 Ondansetron 4 Mg/2 Ml Vial IV 4 mg Q8H PRN PRN Administration NAUSEA/VOMITING Oxycodone HCl 5 mg 09/25/24 20:45 09/28/24 05:50 Oxycodone 5 Mg Tablet PO 5 mg Q4H PRN PRN Administration Pain Score 4-10 Pantoprazole Sodium 40 mg 09/27/24 10:00 09/28/24 09:38 Pantoprazole Sodium 40 Mg Tablet PO 40 mg DAILY SULMA Administration Prochlorperazine Edisylate 5 mg 09/25/24 20:45 09/27/24 23:41 Prochlorperazine 10 Mg/2 Ml Vial IV 5 mg Q4H PRN PRN Administration Breakthrough nausea/vomiting Sodium Chloride 10 - 40 ml 09/25/24 20:47 09/28/24 09:38 0.9% Saline Lock 10 Ml Syringe IV 10 ml UD PRN Administration SALINE FLUSH PFSH Medical History Cannabis abuse Nicotine vapor product user Ulcerative colitis Home Medications ?Medication ?Instructions ?Recorded ?Last Taken ?Type prednisone 20 mg tablet 40 mg PO DAILY steroid 04/11/21 Unknown History bupropion HCl 150 mg tablet,12 hr 300 mg PO DAILY mood 09/25/24 Unknown History sustained-release Allergy/AdvReac Type Severity Reaction Status Date / Time amoxicillin Allergy Rash Verified 09/25/24 15:49 Family History Mother Anxiety and depression Father No problems noted. Surgical History Hx of colonoscopy Social History household members: significant other Electronic Cigarette Use: with nicotine alcohol intake: current alcohol intake frequency: a few times a month Alcohol type: hard liquor substance use type: marijuana what type of physical activity do you participate in: none seatbelt use: always do you feel safe at home: Yes Review of Systems (Anesthesia) ROS Narrative System reviewed and no additional complaints, except as documented. Physical Exam Const alert and oriented x3 HEENT dentition normal Neck full ROM Extremity full ROM Neuro oriented x3 and moves all extremities
--- NOTE | 2024-09-28 11:25 | PCM.PN.BLA ---
Progress Note She underwent enemas this morning. Physical Exam Const alert, oriented x3, no apparent distress and healthy appearing General Appearance: cooperative GI normal to inspection, nondistended, normoactive bowel sounds, soft to palpation, non-tender and non-distended Percussion: normal to percussion Rectal Exam: deferred Assessment & Plan Assessment/Plan (1) Exacerbation of ulcerative colitis: PLAN: Plan The patient is a 24 y/o F w/ PMHx: Tobacco use, Chronic cannabis usage, Anxiety and Depression, Ulcerative colitis who presents to the [facility] ED on 09/25/24 with history of persistent intermittent abdominal cramping, diarrhea and hematochezia Acute ulcerative colitis flare: I will increase her Solu-Medrol to 60 mg every 6 now that her stools are negative for infection. I will also check CMV antibodies and titers. We will check an ESR, CRP and lactic acid along we will get a CT scan of the abdomen pelvis to look for signs of pancolitis. She would likely need flexible sigmoidoscopy or colonoscopy on Saturday. She will be checking with her insurance on Saturday to see if we can give Remicade infusion. 09/28/2024-she will undergo flexible sigmoidoscopy today to evaluate the rectosigmoid area to get biopsies and to see how she is responding to medical therapy. Visit Charges Inpatient E&M: 32540 [facility] Hosp L3
--- NOTE | 2024-09-28 11:56 | OP.COLON_ITS ---
Patient Name: Dot Zamarripa Procedure Date: 09/28/2024 11:30 AM Date of : 2000 Age: 24 Procedure: Colonoscopy Indications: Suspected chronic ulcerative pancolitis Providers: Mike Pace DO Medicines: Monitored Anesthesia Care Patient Profile: This is a 24 year old female. Refer to note in patient chart for documentation of history and physical. Last Colonoscopy: several years ago. This patient has ulcerative pancolitis, is taking prednisone and is experiencing severe symptoms. [[place]obe Class CD]. [[place] Bowens Index]. [place] classification (Ulcerative Colitis): Extent of disease: E3 (extensive colitis) and Severity of disease: S3 (severe). Simple Clinical Colitis Activity Index: Bowel frequency = 3 (more than 9 per day), Bowel frequency = 2 (4 to 6 per night), Urgency of defecation = 2 (immediately), Blood in stool = 3 (usually cecilia), Well-being = 2 (poor), Number of extra-intestinal manifestations = 0 and Total SCCAI Score = 13. Complications: No immediate complications. Procedure: Pre-Anesthesia Assessment: - Prior to the procedure, a History and Physical was performed, and patient medications and allergies were reviewed. The patient is competent. The risks and benefits of the procedure and the sedation options and risks were discussed with the patient. All questions were answered and informed consent was obtained. Patient identification and proposed procedure were verified by the physician in the pre-procedure area. Mental Status Examination: alert and oriented. Airway Examination: normal oropharyngeal airway and neck mobility. Respiratory Examination: clear to auscultation. CV Examination: normal. Prophylactic Antibiotics: The patient does not require prophylactic antibiotics. Prior Anticoagulants: The patient has taken Coumadin (warfarin), last dose was 12 days prior to procedure. ASA Grade Assessment: II - A patient with mild systemic disease. After reviewing the risks and benefits, the patient was deemed in satisfactory condition to undergo the procedure. The anesthesia plan was to use monitored anesthesia care (MAC). Immediately prior to administration of medications, the patient was re-assessed for adequacy to receive sedatives. The heart rate, respiratory rate, oxygen saturations, blood pressure, adequacy of pulmonary ventilation, and response to care were monitored throughout the procedure. The physical status of the patient was re-assessed after the procedure. After I obtained informed consent, the scope was passed under direct vision. Throughout the procedure, the patient's blood pressure, pulse, and oxygen saturations were monitored continuously. The pediatric colonoscope was introduced through the anus and advanced to the cecum, identified by appendiceal orifice and ileocecal valve. After I obtained informed consent, the scope was passed under direct vision. Throughout the procedure, the patient's blood pressure, pulse, and oxygen saturations were monitored continuously. The Colonoscope was introduced through the anus and advanced to the cecum, identified by appendiceal orifice and ileocecal valve. The colonoscopy was performed without difficulty. The patient tolerated the procedure well. No bowel preparation was given prior to the procedure. Scope In: 11:41:27 AM Scope Withdrawal Time 0 hours 3 minutes 27 seconds Scope Out: 11:49:29 AM Total Procedure Duration Time 0 hours 8 minutes 2 seconds Findings: The perianal and digital rectal examinations were normal. Inflammation was found in a continuous and circumferential pattern from the rectum to the cecum. This was graded as Velazquez Score 3 (severe, with spontaneous bleeding, ulcerations), and when compared to the previous examination, the findings are worsened. Biopsies were taken with a cold forceps for histology. Verification of patient identification for the specimen was done. Estimated blood loss was minimal. Red blood was found in the entire colon. Stool was found in the recto-sigmoid colon, in the descending colon, at the splenic flexure, in the transverse colon, at the hepatic flexure, in the ascending colon and in the cecum. Lavage of the area was performed using greater than 500 mL, resulting in incomplete clearance with continued poor visualization. Impression: - Severe (Velazquez Score 3) pancolitis ulcerative colitis, worsened since the last examination. Biopsied. - Blood in the entire examined colon. - Stool in the recto-sigmoid colon, in the descending colon, at the splenic flexure, in the transverse colon, at the hepatic flexure, in the ascending colon and in the cecum. Recommendation: - Return patient to [facility] for ongoing care. - Full liquid diet. - Continue present medications. - Await pathology results. - Consider Remicaide infusion - Repeat colonoscopy is recommended for surveillance. The colonoscopy date will be determined after pathology results from today's exam become available for review. Procedure Code(s): --- Professional --- 82409, Colonoscopy, flexible; with biopsy, single or multiple CPT copyright 2021 [employer]. All rights reserved. The codes documented in this report are preliminary and upon immunology teacher review may be revised to meet current compliance requirements. Mike Pace DO 09/28/2024 11:56:21 AM This report has been signed electronically. Number of Addenda: 0 Note Initiated On: 09/28/2024 11:30 AM
--- NOTE | 2024-09-28 11:56 | OP.CCLET_ITS ---
09/28/2024 No Primary Care Physician Re : Colonoscopy procedure for Dot Zamarripa Dear Care Physician This procedure was performed on Saturday, September 28, 2024. My impressions and recommendations are as follows: Impressions : - Severe (Velazquez Score 3) pancolitis ulcerative colitis, worsened since the last examination. Biopsied. - Blood in the entire examined colon. - Stool in the recto-sigmoid colon, in the descending colon, at the splenic flexure, in the transverse colon, at the hepatic flexure, in the ascending colon and in the cecum. Recommendations : - Return patient to [facility] for ongoing care. - Full liquid diet. - Continue present medications. - Await pathology results. - Consider Remicaide infusion - Repeat colonoscopy is recommended for surveillance. The colonoscopy date will be determined after pathology results from today's exam become available for review. My findings are described in the full procedure note, which is enclosed. If I can be of further assistance, please feel free to contact me at . Sincerely, Mike Pace DO 09/28/2024 11:56:21 AM This report has been signed electronically.
--- NOTE | 2024-09-28 12:01 | PCM.POST.ANE ---
Anesthesia: Postop Eval I Current Vital Signs Temperature: 97.8 F Pulse Rate: 107 Blood Pressure: 115/81 Respiratory Rate: 16 Pulse Ox: 97 Oxygen Delivery Method: Room Air Assessment Airway patent: Yes Spontaneous unlabored respirations: Yes Mental status: Asleep nausea: No Vomiting: No Anesthesia Complication: No Fluid Hydration Crystalloid volume administer (ml): 30 Total IV fluid infused: 30 Progress Note Anesthesia document: Postop Eval 1 completed: Yes
[2024-09-28] MEDS: 0.9% Normal Saline (100mL Bag) 100 ML 15 ML IV ×2 (13:41→21:42)
[2024-09-28 14:06] LABS: Pathologist Review Reviewed
--- NOTE | 2024-09-28 14:54 | PCM.POSTANE2 ---
Anesthesia Postop Eval I Sum Postop Eval Completion status Anesthesia document: Postop Eval 1 completed: Yes Anesthesia Postop Eval I Summary Anesthesia Postop Eval I Summary: Anesthesia Postop Eval I: Assessment Summary Airway patent Yes 09/28/24 12:02 [email or web address] Spontaneous unlabored Yes 09/28/24 12:02 [email or web address] respirations Mental status Asleep 09/28/24 12:02 [email or web address] nausea No 09/28/24 12:02 [email or web address] Vomiting No 09/28/24 12:02 [email or web address] Anesthesia Postop Eval I: Fluid Summary Crystalloid volume administer 30 09/28/24 12:02 [email or web address] (ml) Colloids volume administered ( ml) Blood Product volume administered (ml) Total IV fluid infused 30 09/28/24 12:02 [email or web address] Anesthesia Postop Eval I: Summary Notes Anesthesia Complication No 09/28/24 12:02 [email or web address] Anesthesia Complication Comment: Post-operative progress note Anesthesia: Postop Eval II Evaluation Mental status: Awake and Calm Pain Level: 3 nausea: No Vomiting: No Complications Anesthesia Complication: No
--- NOTE | 2024-09-28 15:40 | CASEMGMT ---
TAVO CHATTERJEE into pt room as charge nurse states that it is needed to be known if pt insurance covers remicade infusions. TAVO CHATTERJEE into pt room, pt sitting up in bed. Pt states that her insurance with [employer] was reinstated today. Her sig other who is in the room provided a card. The ID number is [id number]. Pt states she had [employer] when she was on her mother's plan that covered Remicade, then got an [employer] plan that did not cover the remicade so she switched back to an [employer] plan. TC to [employer] member services, spoke with Carmen and was rerouted to Marilu. Both reps state that the patient is not showing as active. Marilu states that pt insurance shows active on 08/05/24 then it ended same day. She states she cannot provide any information and if pt insurance was reinstated today, it may take up to 7 days to show in their system. Once it shows as active, they can answer questions. Member services number is . TC from [facility] at pharmacy asking about pt insurance and coverage of remicade, she was made aware of the above. TAVO CHATTERJEE notes pt insurance card scanned in on 09/03/24 is the same as what pt sig other showed. Will request registration to run this card tomorrow to see if eligible. TAVO CHATTERJEE to follow.
[2024-09-28] MEDS: buPROPion (SR) 150 MG Tablet.SA 300 MG PO (16:02)
--- NOTE | 2024-09-28 18:24 | PCM.PN.HOSP ---
Reason for Visit Reason for Visit: Diagnoses Ulcerative colitis, unspecified, without complications (09/25/24) Subjective Subjective Patient was seen and examined today, I talked with gastroenterology about her care, a colonoscopy was performed today which showed pancolitis. Discharge planning will check her insurance coverage tomorrow to see if they can get Remicade covered for the patient as an outpatient. Objective Data Objective Data Vital Signs: Vital Signs Temp Pulse Resp BP Pulse Ox O2 Del Method 98.3 F 100 18 142/96 H 97 Room Air 09/28/24 17:14 09/28/24 17:14 09/28/24 17:14 09/28/24 17:14 09/28/24 17:14 09/28/24 17:14 Oxygen Delivery Method Room Air Weight: 57.7 kg Body Mass Index (BMI) 24.0 Intake & Output: Intake and Output for Last 24 Hours 09/26/24 09/27/24 09/28/24 23:59 23:59 23:59 Intake Total 2570 / 2570 / 749.75 / 749.75 Balance 2570 / 2570 / 749.75 / 749.75 Lab / Micro Data 09/28/24 08:08 09/28/24 08:08 Labs: Laboratory Results - last 24 hr 09/25/24 17:55: Diff Path Review Reviewed 09/28/24 08:08: WBC 20.1 H, RBC 3.95 L, Hgb 11.0 L, Hct 33.8 L, MCV 85.6, MCH 27.8, MCHC 32.5, RDW Std Deviation 45.5 H, RDW Coeff of Waldo 14.7 H, Plt Count 552 H, MPV 9.1, Immature Gran % (Auto) 4.300 H, Neut % (Auto) 82.5 H, Lymph % (Auto) 4.1 L, [place] % (Auto) 9.0, Eos % (Auto) 0.0, Baso % (Auto) 0.1, Absolute Neuts (auto) 16.6 H, Absolute Lymphs (auto) 0.83, Nucleated RBC % 0, Differential Comment S, Sodium 137, Potassium 3.9, Chloride 100, Carbon Dioxide 29.0, Anion Gap 8, BUN 12, Creatinine 0.73, Estim Creat Clear Calc 95.43, Est GFR (MDRD) Af Amer 123, Est GFR (MDRD) Non-Af 101, BUN/Creatinine Ratio 16.4, Glucose 107 H, Calcium 8.7 Micro: Microbiology 09/25/24 09:35 Stool Enteric Bacteriology - Final 09/26/24 09:35 Stool Clostridioides difficile (PCR) - Final Physical Exam Const alert, oriented x3, no apparent distress, average body habitus and healthy appearing General Appearance: cooperative, well kempt and well developed Orientation / Consciousness: awake, oriented to person, oriented to place and oriented to time HEENT normocephalic, head/scalp atraumatic and moist oral mucous membranes Eyes PERRL, EOMs intact bilaterally and conjunctivae normal Neck supple, no JVD, thyroid normal and no carotid bruits General: trachea midline Resp normal respiratory effort, no retractions, no use of accessory muscles and clear to auscultation bilaterally Auscultation: Negative for rales, rhonchi or wheezes Cardio regular rate, regular rhythm, S1 normal heart sound, S2 normal heart sound, no murmurs, no rub and no gallops GI normal to inspection, nondistended, normoactive bowel sounds, soft to palpation, non-tender and non-distended Extremity no clubbing, cyanosis or edema Skin no rashes or lesions noted General Skin Exam: no breakdown Neuro oriented x3, CN's II-XII intact bilaterally, moves all extremities, no focal motor deficits and no sensory deficits noted Sensorium / Orientation: awake and alert Speech: speech normal Psych affect normal Assessment & Plan Assessment/Plan (1) Exacerbation of ulcerative colitis: PLAN: Plan 1. Acute flareup of ulcerative colitis-patient will remain on IV corticosteroids at this time, discharge planning will see if they can arrange for the patient to have Remicade as an outpatient #2 chronic depression-patient is on Wellbutrin Total clinical time spent by myself addressing patient's medical issues, reviewing all of her data, and collaborating with patient's care team: 35 minutes Charges/Coding Visit Charges Inpatient E&M: 49247 Subs Hosp L2
[2024-09-28] MEDS: MELATONIN 3 MG TABLET PO (21:37)
[2024-09-29 00:27] VITALS: BP 144/94; PULSE 100; RESP 16; TEMP 36.6; O2SAT 98
[2024-09-29] MEDS: MethylPREDNISolone 125 MG/2 ML Vial 60 MG IV ×3 (00:29→11:42)
[2024-09-29 04:49] VITALS: BP 141/90; PULSE 81; RESP 16; TEMP 36.4; O2SAT 96
[2024-09-29] MEDS: Acetaminophen 325 MG Tablet 650 MG PO (04:51)
[2024-09-29] MEDS: Ondansetron 4 MG/2 ML Vial IV (04:51)
[2024-09-29] MEDS: 0.9% Saline Lock 10 ML Syringe IV ×3 (04:51→11:42)
[2024-09-29] MEDS: oxyCODONE 5 MG Tablet PO (04:51)
[2024-09-29] MEDS: MESALAMINE 400 MG CAPSULE.DR PO (04:52)
[2024-09-29] MEDS: metroNIDAZOLE 500 MG/100 ML BAG 100 MG IV (04:53)
[2024-09-29] MEDS: 0.9% Normal Saline (100mL Bag) 100 ML 15 ML IV (04:57)
[2024-09-29 06:00] VITALS: BMI 24.1
[2024-09-29] MEDS: Pantoprazole Sodium 40 MG Tablet PO (09:04)
[2024-09-29] MEDS: buPROPion (SR) 150 MG Tablet.SA 300 MG PO (09:12)
[2024-09-29 09:36] VITALS: BP 139/93; PULSE 94; RESP 14; TEMP 36.6; O2SAT 97
--- NOTE | 2024-09-29 09:37 | CASEMGMT ---
Addendum entered by Elena Jacob 09/29/24 14:43: TAVO CHATTERJEE into pt room, pt and sig other present. Pt is aware that her insurance is now showing as eligible on one site but not yet through [facility] per registration. Pt is aware of appt on Saturday with . She is aware this RN SHENA spoke with Ct the nurse. Pt sig other states that he calls in and speaks with Ct every couple of weeks. He states she is very proactive for the patient. Pt states that she now feels comfortable dc'ing and will follow up with Dr. Armstrong. Addendum entered by Elena Jacob 09/29/24 14:26: SW made aware that pt stated she has confirmation of her insurance. TC to Registration, she is showing as eligible. Updated hospitalist. Addendum entered by Elena Jacob 09/29/24 14:24: TC to Ct, nurse for . She is aware of pt insurance issues and previous infusions with [facility]. She is aware pt will be in on Saturday and potentially her insurance will be able to be verified. She will work on getting pt set up for the remicade infusion at that time. She states she is very familiar with patient and on top of things. Addendum entered by Elena Jacob 09/29/24 14:18: TC to 's office, pt has an appt on October 06 at 1:30pm. Addendum entered by Elena Jacob 09/29/24 12:03: 1110- TAVO CHATTERJEE notified by DEICER REPAIRER that pt sig other present and has her insurance card and that pt is in the shower and RN SHENA may speak with him. RN SHENA into pt room, pt sig other has same card provided yesterday which was the number that was ran today and showed ineligible. He states that he spoke with Chris and was told that the number on the email was different as it was the billing ID. He states it will updated in 3-5 days in their system. He will have pt ask for RN SHENA after her shower. Pt nurse made aware pt is scared that this will not get set up if she leaves the hospital. Updated hospitalist. Pt to f/u with Dr. Armstrong within 2 wks. Requested typing secretary make appt. Addendum entered by Elena Jacob 09/29/24 10:41: TAVO CHATTERJEE into pt room, explained to pt what was found out about her insurance. Pt states she has a confirmation email that her insurance was re instated. She showed TAVO CHATTERJEE the email. This email showed a different member ID number than she gave yesterday but only the last 4 numbers were visible. Pt to call and obtain the full member ID number then put on her call light for the TAVO CHATTERJEE who will check on status. Updated hospitalist. Addendum entered by Elena Jacob 09/29/24 10:01: Updated hospitalist on this information who notified Dr. Pace. Plan for pt to dc this date. Original Note: TC to Registration, spoke with Monique, she ran pt insurance card which is number TAVO CHATTERJEE received yesterday. Pt is ineligible per Monique.
--- NOTE | 2024-09-29 13:04 | DCINST_ITS ---
Discharge Instructions Diet Discharge Diet: No restrictions DC O2, CPAP, BIPAP needs Home O2 Discharge instructions: No Dressing / Incision Discharge Activity: Return to Normal Activity Weight Bearing Status: Full weight bearing Follow Up Care Test Results: Test results from this visit will be discussed in further detail at your follow- up appointment, if applicable. Discharge Plan Admission Admit Date/Time: 09/25/24 20:03 Primary Reason for Your Visit: Flareup of ulcerative colitis Attending Provider: Wyatt Simon Primary Care Provider: Care Physician,No Primary Consulting Providers: Alexandra Jose; You Rushing Discharge Orders/Prescriptions Prescriptions: No Action prednisone 20 mg Tablet 40 mg PO DAILY bupropion HCl 150 mg tablet sustained-release 12 hr 300 mg PO DAILY Referrals / Follow Up: Gold Armstrong MD [Non-Staff] - Care Physician,No Primary [Primary Care Provider] -
--- NOTE | 2024-09-29 13:04 | PCM.DC ---
Discharge Instructions Diet Discharge Diet: No restrictions DC O2, CPAP, BIPAP needs Home O2 Discharge instructions: No Dressing / Incision Discharge Activity: Return to Normal Activity Weight Bearing Status: Full weight bearing Follow Up Care Test Results: Test results from this visit will be discussed in further detail at your follow-up appointment, if applicable. Discharge Plan Admission Admit Date/Time: 09/25/24 20:03 Primary Reason for Your Visit: Flareup of ulcerative colitis Attending Provider: Wyatt iSmon Primary Care Provider: Care Physician,No Primary Consulting Providers: Alexandra Jose; You Rushing Discharge Orders/Prescriptions Prescriptions: New oxycodone 5 mg Tablet 5 mg PO Q4H PRN PRN (Reason: Pain Score 4-10) 5 Days Qty: 20 0RF pantoprazole 40 mg Tablet,Delayed Release (Dr/Ec) 40 mg PO DAILY Qty: 30 0RF prednisone 20 mg tablet 60 mg PO DAILY Qty: 90 0RF prochlorperazine maleate [Compazine] 5 mg tablet 5 mg PO TID PRN (Reason: nausea and vomiting) Qty: 20 0RF Continued bupropion HCl 150 mg tablet sustained-release 12 hr 300 mg PO DAILY Discontinued prednisone 20 mg Tablet 40 mg PO DAILY Referrals / Follow Up: Gold Armstrong MD [Non-Staff] - See Referral Note (His office will call you to schedule an appointment within the next 2 weeks) Care Physician,No Primary [Primary Care Provider] - Disposition Disposition (needs filled in before D/C Order can be placed): Home, Self Care
--- NOTE | 2024-09-29 13:11 | DS.PCM_ITS ---
Providers Date of Admission: 09/25/24 Date of Discharge: 09/29/24 Primary Care Physician: Doris Primary Care Phys Consultations 09/25/24 20:45 Consult: Gastroenterology Routine Consulting Provider: Selvin Goetz Reason for Consult: UC Flare EMERGENT Consult: No MD Notified: Yes Date Notified: 09/25/24 Time Notified: 20:03 Method of Notification: ED Physician Initiated Reason For Visit: UC FLARE Diagnosis Discharge Diagnosis (1) Exacerbation of ulcerative colitis: Status: Acute Code(s): K51.90 - Ulcerative colitis, unspecified, without complications Plan 1. Acute flareup of ulcerative colitis-patient will remain on IV corticosteroids at this time, discharge planning will see if they can arrange for the patient to have Remicade as an outpatient #2 chronic depression-patient is on Wellbutrin Total clinical time spent by myself addressing patient's medical issues, reviewing all of her data, and collaborating with patient's care team: 35 minutes Medications at Discharge Home Medications bupropion HCl 150 mg tablet,12 hr sustained-release 300 mg PO DAILY mood 09/25/24 oxycodone 5 mg tablet 5 mg PO Q4H PRN PRN Pain Score 4-10 5 days #20 tabs 09/29/24 pantoprazole 40 mg tablet,delayed release 40 mg PO DAILY #30 tabs 09/29/24 prednisone 20 mg tablet 60 mg (3 x 20 mg) PO DAILY #90 tabs 09/29/24 prochlorperazine maleate 5 mg tablet (Compazine) 5 mg PO TID PRN nausea and vomiting #20 tabs 09/29/24 Hospital Course Operations None Procedures Colonoscopy Summary of Care Provided Minutes Spent on Discharge: 31 Hospital Course: This 24-year-old white female was seen in the emergency room at [facility] with complaints of abdominal pain and hematochezia. She had been diagnosed with ulcerative colitis at the age of 10. She was seen by her automotive mechanic 3 days prior and placed on oral prednisone. Labs obtained in the ER showed an elevated white blood cell count at 16, chemistry profile was unremarkable. Patient was admitted to [facility] 3 and placed on IV corticosteroids, she was seen in consultation by gastroenterology who performed a colonoscopy that showed pancolitis, biopsies were taken. It was recommended that the patient follow-up with her outpatient automotive mechanic to begin treatment with Remicade. On 09/29/2024, patient was seen and examined: On examination she appeared in good health and spirits, she does not appear to be in any distress. Vital signs as documented. Skin warm and dry and without overt rashes. Neck without JVD, thyroid appears normal, trachea is midline, neck is supple. Lungs clear, normal air movement was noted. Heart exam notable for regular rhythm, normal sounds and absence of murmurs, rubs or gallops. Abdomen unremarkable and without evidence of organomegaly, masses, or abdominal aortic enlargement, bowel sounds are present in all 4 quadrants, no abdominal tenderness was noted. Extremities nonedematous, no cyanosis was noted, no clubbing was noted. Neuro: Cranial nerves II through XII are grossly intact, no focal motor deficits were noted, sensation to light touch and pinprick is intact, motor exam 5/5 throughout. Psych: Patient is alert and oriented x3, she does not appear anxious or depressed, she does not appear agitated. Patient was discharged home in stable condition on 09/29/2024 Weight / BMI Weight Weight: 58 kg Body Mass Index (BMI) 24.1 ABG / Lab / Microbiology Data 09/28/24 08:08 09/28/24 08:08 Laboratory: Laboratory Results - last 24 hr 09/25/24 17:55: Diff Path Review Reviewed Microbiology: Microbiology 09/25/24 09:35 Stool Enteric Bacteriology - Final 09/26/24 09:35 Stool Clostridioides difficile (PCR) - Final D/C Instructions Discharge Diet: No restrictions Weight Bearing Status: Full weight bearing DC O2, CPAP, BIPAP Needs Home O2 Discharge instructions: No Meaningful Use Info Meaningful Use Meaningful Use Diagnoses (Choose all that apply): None applicable Ischemic Stroke Statin Dosing Therapy Reference: STATIN DOSE THERAPY REFERENCE: * Patients > 75 years receive moderate or high dose statin therapy. * Patients 75 years or YOUNGER should receive HIGH intensity statin dose unless contraindicated. You will be required to document reason for non-treatment if statin daily dose does not meet guidelines. HIGH DOSE STATIN THERAPY DAILY Atorvastatin > than or = to 40 mg Rosuvastatin > than or = to 20 mg Amlodipine + Atorvastatin > than or = to 2.5/40 mg Ezetimibe + Simvastatin 10/80 mg Simvastatin 80mg Discharge Plan Admission Admit Date/Time: 09/25/24 20:03 Primary Reason for Your Visit: Flareup of ulcerative colitis Attending Provider: Wyatt Simon Primary Care Provider: Care Physician,No Primary Consulting Providers: Alexandra Jose; You Rushing Discharge Orders/Prescriptions Prescriptions: New oxycodone 5 mg Tablet 5 mg PO Q4H PRN PRN (Reason: Pain Score 4-10) 5 Days Qty: 20 0RF pantoprazole 40 mg Tablet,Delayed Release (Dr/Ec) 40 mg PO DAILY Qty: 30 0RF prednisone 20 mg tablet 60 mg PO DAILY Qty: 90 0RF prochlorperazine maleate [Compazine] 5 mg tablet 5 mg PO TID PRN (Reason: nausea and vomiting) Qty: 20 0RF Continued bupropion HCl 150 mg tablet sustained-release 12 hr 300 mg PO DAILY Discontinued prednisone 20 mg Tablet 40 mg PO DAILY Referrals / Follow Up: Gold Armstrong MD [Non-Staff] - 10/06/24 1:30 pm () Care Physician,No Primary [Primary Care Provider] - Disposition Disposition (needs filled in before D/C Order can be placed): Home, Self Care Charges/Coding Visit Charges Inpatient E&M: 05276 Disch Hosp >30min
--- NOTE | 2024-09-29 13:37 | CASEMGMT ---
Social Work- provided self pay resources including [employer] card, [employer], [facility], and prescription assistance programs. Pt reports that she does have insurance; has not been confirmed. CHESTER Miranda
== END 2024-09-29 14:51 | disposition home or self-care (01) | DRG 387 ==
LOC: ED 19:39 → MS3 09-26 07:19
PROVIDERS: Internal Medicine; Internal Medicine Gastroenterology; Admitting Provider Family Medicine; Emergency Provider Emergency Medicine; Visit Provider Internal Medicine
PROC: 0DJD8ZZ Inspection of Lower Intestinal Tract, Via Natural or Artificial Opening Endoscopic (ICD-10-PCS; CPT 45378; principal; 2024-09-28 11:10)
DX: K51.011 Ulcerative (chronic) pancolitis with rectal bleeding (principal); F12.11 Cannabis abuse, in remission; F32.A Depression, unspecified; F41.9 Anxiety disorder, unspecified; R00.0 Tachycardia, unspecified; Z87.891 Personal history of nicotine dependence
CPT/HCPCS: 36415; 74177; 80048; 80053; 81001; 83605; 83735; 84100; 84703; 85025; 85652; 86140; 87493; 87506; 88305; 99283; Q9967; A4216; J2405

== ENCOUNTER 2024-10-19 13:21 | Emergency (ER) | payer BC, SELFPAY ==
[2024-10-19 13:22] VITALS: BP 135/87; PULSE 104; RESP 16; TEMP 36.4; O2SAT 95; BMI 24.5
--- NOTE | 2024-10-19 15:50 | ED.RN ---
PT. NAME CALLED IN TRIAGE AND IN BATHROOM W/ NO RESPONSE. LWBS AT 1548. REGISTRATION NOTIFIED
== END 2024-10-19 15:44 | disposition left against medical advice (07) ==
LOC: ED 15:52
DX: R10.9 Unspecified abdominal pain (principal); Z87.442 Personal history of urinary calculi; Z53.21 Procedure and treatment not carried out due to patient leaving prior to being seen by health care provider

== ENCOUNTER → 2025-04-13 | Outpatient (CLI) | payer BC, SELFPAY ==
[2025-04-15 10:09] LABS: QNTFERON TB Mitogen Value > 10.00 IU/mL (.); QNTFERON TB Nil Value 0.03 IU/mL (.); QNTFERON TB1+ Ag Value 0.03 IU/mL (.); QNTFERON TB2+ Ag Value 0.02 IU/mL (.); QNTIFERON TB Positive Criteria Negative (Negative)
== END | disposition home or self-care (01) ==
LOC: MTLAB 14:58
PROVIDERS: Referring Provider Internal Medicine Gastroenterology; Visit Provider Internal Medicine Gastroenterology
DX: K51.90 Ulcerative colitis, unspecified, without complications (principal)
CPT/HCPCS: 36415; 86480